=== PATIENT | female | born 1990 | race African-American/Black ===

== ENCOUNTER 2016-05-07 16:32 | Emergency (ER) | payer OTHER ==
--- NOTE | 2016-05-07 17:19 | ER Document Report ---
ED Medical Screen (RME) - General Chief Complaint: Flu Symptoms Stated Complaint: VOMITING Time seen by provider: 17:17 Mode of Arrival: Ambulatory Information source: Patient Notes: 26-year-old female complaining of nausea and headache, body aches, vomiting since Saturday. She states she can't keep anything down. Runny nose and cough since yesterday. Chills and sweats. denies . I have greeted and performed a rapid initial assessment of this patient. A comprehensive ED assessment, evaluation of the patient, analysis of test results , and completion of the medical decision making process will be conducted by additional ED providers. TRAVEL OUTSIDE OF THE [place] IN LAST 30 DAYS: No - Related Data Allergies/Adverse Reactions: haloperidol [From Haldol] Adverse Reaction (Verified 09/27/15 17:55) haloperidol lactate [From Haldol] Adverse Reaction (Verified 09/27/15 17:55) prochlorperazine edisylate [From Compazine] Adverse Reaction (Verified 09/27/15 17:55) prochlorperazine maleate [From Compazine] Adverse Reaction (Verified 09/27/15 17 :55) Past Medical History - Social History Family history: Other - anemia Neurological Medical History: Reports: Hx Migraine Psychiatric Medical History: Reports: Hx Anxiety Past Surgical History: Reports: Hx Section - x 2 - Immunizations Immunizations up to date: Yes Hx Diphtheria, Pertussis, Tetanus Vaccination: Yes Physical Exam - Vital signs Vitals: Temp Pulse Resp BP Pulse Ox 98.1 F 94 14 105/62 99 05/07/16 16:38 05/07/16 16:38 05/07/16 16:38 05/07/16 16:38 05/07/16 16:38 Course - Vital Signs Vital signs: Temp Pulse Resp BP Pulse Ox 98.1 F 94 14 105/62 99 05/07/16 16:38 05/07/16 16:38 05/07/16 16:38 05/07/16 16:38 05/07/16 16:38
[2016-05-07] MEDS ORDERED: ONDANSETRON 4 MG TAB.RAPDIS PO ONE (17:20)
[2016-05-07 18:00] LABS: APPEARANCE,URINE SLIGHTLY-CLOUDY; BILIRUBIN,URINE NEGATIVE (NEGATIVE); GLUCOSE, URINE NEGATIVE (NEGATIVE); KETONES,URINE TRACE mg/dL (NEGATIVE); LEUKOCYTE ESTERASE,URINE NEGATIVE (NEGATIVE); NITRITE,URINE NEGATIVE (NEGATIVE); PROTEIN,URINE NEGATIVE (NEGATIVE); UROBILINOGEN,URINE NEGATIVE mg/dL (<2.0)
--- NOTE | 2016-05-07 19:14 | ER Document Report ---
ED Flu Like - General Chief Complaint: Flu Symptoms Stated Complaint: VOMITING Time seen by provider: 19:09 Mode of Arrival: Ambulatory Information source: Patient Notes: 26-year-old female presents to ED for complaints of nausea headache bodyaches and vomiting since Saturday she states she has a runny nose and cough since yesterday chills and sweats. TRAVEL OUTSIDE OF THE [place] IN LAST 30 DAYS: No - HPI Onset: Last week Timing/Duration: Worse Quality of pain: Achy Severity: Moderate Pain Level: 3 CO exposure: No Associated symptoms: Body/muscle aches, Chills, Fever, Vomiting, Rhinnorhea, Sore throat Similar symptoms previously: Yes Recently seen / treated by doctor: No - Related Data Allergies/Adverse Reactions: haloperidol [From Haldol] Adverse Reaction (Verified 09/27/15 17:55) haloperidol lactate [From Haldol] Adverse Reaction (Verified 09/27/15 17:55) prochlorperazine edisylate [From Compazine] Adverse Reaction (Verified 09/27/15 17:55) prochlorperazine maleate [From Compazine] Adverse Reaction (Verified 09/27/15 17 :55) Past Medical History - General Information source: Patient - Social History Smoking Status: Never Smoker Cigarette use (# per day): No Chew tobacco use (# tins/day): No Smoking Education Provided: No Frequency of alcohol use: None Drug Abuse: None Occupation: [employer] Lives with: Grandparent(s) Family History: CVA, DM, Hypertension, Malignancy Patient has suicidal ideation: No Patient has homicidal ideation: No - Past Medical History Cardiac Medical History: Reports: None Pulmonary Medical History: Reports: None EENT Medical History: Reports: None Neurological Medical History: Reports: Hx Migraine Endocrine Medical History: Reports: None Renal/ Medical History: Reports: None Malignancy Medical History: Reports: None GI Medical History: Reports: None Musculoskeltal Medical History: Reports None Skin Medical History: Reports None Psychiatric Medical History: Reports: Hx Anxiety Traumatic Medical History: Reports: None Infectious Medical History: Reports: None Past Surgical History: Reports: Hx Section - x 2 - Immunizations Immunizations up to date: Yes Hx Diphtheria, Pertussis, Tetanus Vaccination: Yes Review of Systems - Review of Systems Constitutional: Chills, Recent illness EENT: Nose discharge, Sinus discharge Cardiovascular: No symptoms reported Respiratory: Cough Gastrointestinal: Vomiting Genitourinary: No symptoms reported Female Genitourinary: No symptoms reported Musculoskeletal: No symptoms reported Skin: No symptoms reported Hematologic/Lymphatic: No symptoms reported Neurological/Psychological: Headaches -: Yes All other systems reviewed and negative Physical Exam - Vital signs Vitals: Temp Pulse Resp BP Pulse Ox 98.1 F 94 14 105/62 99 05/07/16 16:38 05/07/16 16:38 05/07/16 16:38 05/07/16 16:38 05/07/16 16:38 Interpretation: Normal - General General appearance: Appears well, Alert - HEENT Head: Normocephalic, Atraumatic Eyes: Normal Pupils: PERRL Ears: Normal External canal: Normal Tympanic membrane: Normal Nasal: Purulent discharge, Swelling Mouth/Lips: Normal Mucous membranes: Normal Pharynx: Normal. No: Erythema, Exudate, Peritonsillar abscess, Retropharyngeal abscess, Tonsillar hypertrophy, Potential airway comprom. Neck: Normal - Respiratory Respiratory status: No respiratory distress Chest status: Nontender Breath sounds: Nonproductive cough Chest palpation: Normal - Cardiovascular Rhythm: Regular Heart sounds: Normal auscultation Murmur: No - Abdominal Inspection: Normal Distension: No distension Bowel sounds: Normal Tenderness: Nontender Organomegaly: No organomegaly - Back Back: Normal, Nontender - Extremities General upper extremity: Normal inspection, Nontender, Normal color, Normal ROM , Normal temperature General lower extremity: Normal inspection, Nontender, Normal color, Normal ROM , Normal temperature, Normal weight bearing. No: Ailyn's sign - Neurological Neuro grossly intact: Yes Cognition: Normal Orientation: AAOx4 Jeimy Coma Scale Eye Opening: Spontaneous [place] Coma Scale Verbal: Oriented Jeimy Coma Scale Motor: Obeys Commands Jeimy Coma Scale Total: 15 Speech: Normal Cranial nerves: Normal Motor strength normal: LUE, RUE, LLE, RLE Additional motor exam normals: Equal salt lifter Babinski reflex: Normal (flexor plantar) Sensory: Normal Biceps - Reflex grade: 2 = Normal Triceps - Reflex grade: 2 = Normal Brachioradialis - Reflex grade: 2 = Normal Knee - Reflex grade: 2 = Normal Ankle - Reflex grade: 2 = Normal - Psychological Associated symptoms: Normal affect, Normal mood - Skin Skin Temperature: Warm Skin Moisture: Dry Skin Color: Normal Course - Vital Signs Vital signs: Temp Pulse Resp BP Pulse Ox 98.4 F 74 18 107/65 98 05/07/16 19:19 05/07/16 19:19 05/07/16 19:19 05/07/16 19:19 05/07/16 19:19 - Laboratory Laboratory results interpreted by me: 05/07/16 17:40 Urine Ketones TRACE H Urine Ascorbic Acid 40 H Discharge - Discharge Clinical Impression: Viral upper respiratory illness Nausea & vomiting Qualifiers: Vomiting type: unspecified Vomiting Intractability: non-intractable Qualified Code(s): R11.2 - Nausea with vomiting, unspecified Headache Qualifiers: Headache type: unspecified Headache chronicity pattern: chronic headache Intractability: not intractable Qualified Code(s): R51 - Headache Condition: Good Disposition: HOME, SELF-CARE Instructions: Family Physicians / Practices Additional Instructions: HEADACHE: The physician does not feel that the headache you are experiencing has a serious underlying cause. Most headaches are due to emotional stress, with resultant muscle tension (tension headache). Occasionally, headaches are secondary to changes in the blood vessels of the scalp (vascular headache and migraine headache). Sometimes, a headache is the first symptom of another developing illness, such as a viral infection. You have no evidence of stroke, bleeding, meningitis, or other serious cause of your headache. The treatment of headaches varies with the severity and cause of the pain. Not all headaches need pain shots. In fact, there is evidence that using narcotics for headaches may make them worse in the long run. The physician will determine the therapy that's in your best interest. If you develop a fever, if the headache is different from any you've previously experienced, or if the headache progressively worsens, then call your physician at once or go to the emergency room. Nausea or Vomiting, Nonspecific Vomiting (or nausea without vomiting) can be caused by many different problems. Of course, it can mean that something's wrong with the stomach, such as "stomach flu," ulcers, or inflammation. But it can also be a symptom of a problem that has nothing to do with the stomach or intestines. Vomiting is common with severe headaches, earaches, and tonsillitis. We see it with pneumonia or heart attacks. Drugs can cause nausea. Many abdominal problems cause vomiting; for example, gallstones, kidney stones, pancreatitis, and intestinal obstruction (blocked bowels). In most cases, curing the vomiting depends on fixing the problem that caused it. For temporary relief, we may use an anti-nausea medicine. For home use, we can prescribe suppositories, chewable pills, pills that dissolve in the mouth, or liquid anti-nausea drugs. If the vomiting seems to be caused by a problem in the stomach, acid-suppressing drugs may be prescribed as well. It's important to avoid dehydration. Sip clear liquids. Take increasing amounts of fluid over the first 24 hours. Then start small amounts of bland foods (such as dry toast, applesauce, mashed potato). Avoid aspirin, tobacco, and alcohol. Gradually resume your usual diet. If the vomiting worsens, if the problem that's making you vomit worsens, or if there's evidence of bleeding in the stomach (such as black, tarry stool, bloody or black vomit, or lightheadedness), you should return immediately. Call your doctor if you aren't improved in 24 to 36 hours. USE OF DIPHENHYDRAMINE: Diphenhydramine (Benadryl) is an antihistamine and has been recommended to help treat your headache and to prevent side effects of other medications used to treat headaches. The medication can be repeated four times daily. Age Elixir (12.5 mg/tsp) 25 mg pill adult 1-2 tabs Antihistamines may cause drowsiness, especially with the first dose. Do not operate machinery or drive while under the effects of the medication. Do not combine the medication with alcohol, or with any other medication without talking to your doctor. ANTINAUSEA MEDICATION: You have been given a medication to suppress nausea and vomiting. This type of medication can be given as a shot, pill, or suppository. It will usually last for many hours. Pills and shots usually last six to eight hours, suppositories last about 12 hours. For the typical illness, only one or two doses of the medication may be necessary. Mild lightheadedness may occur. This type of medicine can cause drowsiness. Do not drive or operate dangerous machinery while under its influence. Do not mix with alcohol. See your doctor at once if you have muscle spasms or tightness, or uncontrollable motions (particularly of the neck, mouth, or jaw). Persistent vomiting or severe lightheadedness should also be evaluated by the physician. Ibuprofen Ibuprofen is an excellent, safe drug for pain control. In addition, it has potent antiinflammatory effects which are beneficial, especially in the treatment of injuries, arthritis, or tendonitis. It's best to take ibuprofen with food. Persons with ulcer disease or allergy to aspirin should notify their physician of this before taking ibuprofen. Take the medication exactly as prescribed. Don't take additional doses unless instructed to do so by your doctor. If you develop wheezing, shortness of breath, hives, faintness, stomach pain, vomiting, or dark black stools, return for re-evaluation at once. FOLLOW-UP CARE: If you have been referred to a physician for follow-up care, call the physician s office for an appointment as you were instructed or within the next two days. If you experience worsening or a significant change in your symptoms, notify the physician immediately or return to the Emergency Department at any time for re-evaluation. Prescriptions: Promethazine HCl [Phenergan 25 mg Tablet] 25 mg PO Q6H PRN #15 tablet PRN Reason:
[2016-05-07 19:20] VITALS: BP 107/65
== END 2016-05-07 19:19 | disposition home or self-care (01) ==
LOC: ER 16:32
DX: J06.9 Acute upper respiratory infection, unspecified (principal); B97.89 Other viral agents as the cause of diseases classified elsewhere; R51 Headache; R11.2 Nausea with vomiting, unspecified; R05 Cough; R61 Generalized hyperhidrosis; M79.1 Myalgia; J34.89 Other specified disorders of nose and nasal sinuses; J02.9 Acute pharyngitis, unspecified; R68.83 Chills (without fever)
CPT/HCPCS: 99283; 81025; 81001; S0119

== ENCOUNTER 2016-05-14 21:28 | Emergency (ER) | payer SELFPAY ==
[2016-05-14 22:31] VITALS: BP 113/67
== END 2016-05-15 01:18 | disposition left against medical advice (07) ==
LOC: ER 21:28
DX: Z53.21 Procedure and treatment not carried out due to patient leaving prior to being seen by health care provider (principal)

== ENCOUNTER 2016-05-22 15:55 | Emergency (ER) | payer OTHER ==
[2016-05-22] MEDS ORDERED: IBUPROFEN 800 MG TABLET PO ONE (16:05)
--- NOTE | 2016-05-22 16:05 | ER Document Report ---
ED Medical Screen (RME) - General Stated Complaint: TOE PAIN Time seen by provider: 15:59 Mode of Arrival: Ambulatory Information source: Patient Notes: Patient complains of ingrown toenail, left #3 toe for the last week and a half. Painful to touch, and patient states it has been bleeding. Denies injury to the toe. Denies previous history of ingrown toenails. Denies fever. I have greeted and performed a rapid initial assessment of this patient. A comprehensive ED assessment and evaluation of the patient, analysis of test results and completion of the medical decision making process will be conducted by additional ED providers. TRAVEL OUTSIDE OF THE [place] IN LAST 30 DAYS: No - Related Data Allergies/Adverse Reactions: haloperidol [From Haldol] Adverse Reaction (Verified 05/22/16 15:57) haloperidol lactate [From Haldol] Adverse Reaction (Verified 05/22/16 15:57) prochlorperazine edisylate [From Compazine] Adverse Reaction (Verified 05/22/16 15:57) prochlorperazine maleate [From Compazine] Adverse Reaction (Verified 05/22/16 15 :57) Past Medical History - Social History Family history: Other - anemia Neurological Medical History: Reports: Hx Migraine Renal/ Medical History: Denies: Hx Peritoneal Dialysis Psychiatric Medical History: Reports: Hx Anxiety Past Surgical History: Reports: Hx Section - x 2 - Immunizations Immunizations up to date: Yes Hx Diphtheria, Pertussis, Tetanus Vaccination: Yes Physical Exam - Extremities Notes: Left third toe is red, with some edema and what appears to be purulent drainage. There is also dried blood to the toe. Sensation and neurovascular intact.
[2016-05-22] MEDS ORDERED: BUPIVACAINE HCL 0.75% INJ/PF (7.5 MG/1 ML) 10 ML SDV INJ ONE (17:59)
--- NOTE | 2016-05-22 18:03 | ER Document Report ---
ED Extremity Problem, Lower - General Mode of Arrival: Ambulatory Information source: Patient TRAVEL OUTSIDE OF THE [place] IN LAST 30 DAYS: No - HPI Patient complains to provider of: Pain Location: 3rd Toe - Left Occurred: Other - Approximately 1.5 weeks ago Onset/Duration: Persistent Context: Stubbed - Possible Recent injury: Possibly - General Chief Complaint: Toe Injury Stated Complaint: TOE PAIN Notes: Patient is a 26-year-old female presenting to the emergency department concerned of the left third toe pain onset about a week and a half ago. Patient states that it has been swelling and bleeding. Patient thinks she may have stubbed it, and may have developed an ingrown toenail. Patient does not have any other symptoms. (LAURA FERRERA) - Related Data Allergies/Adverse Reactions: haloperidol [From Haldol] Adverse Reaction (Verified 05/22/16 15:57) haloperidol lactate [From Haldol] Adverse Reaction (Verified 05/22/16 15:57) prochlorperazine edisylate [From Compazine] Adverse Reaction (Verified 05/22/16 15:57) prochlorperazine maleate [From Compazine] Adverse Reaction (Verified 05/22/16 15 :57) Past Medical History - General Information source: Patient - Social History Smoking Status: Unknown if Ever Smoked Chew tobacco use (# tins/day): No Frequency of alcohol use: None Drug Abuse: None Family History: Reviewed & Not Pertinent, CVA, DM, Hypertension, Malignancy Patient has suicidal ideation: No Patient has homicidal ideation: No Neurological Medical History: Reports: Hx Migraine Renal/ Medical History: Denies: Hx Peritoneal Dialysis Psychiatric Medical History: Reports: Hx Anxiety Past Surgical History: Reports: Hx Section - x 2 - Immunizations Immunizations up to date: Yes Hx Diphtheria, Pertussis, Tetanus Vaccination: Yes Review of Systems - Review of Systems Constitutional: No symptoms reported EENT: No symptoms reported Cardiovascular: No symptoms reported Respiratory: No symptoms reported Gastrointestinal: No symptoms reported Genitourinary: No symptoms reported Female Genitourinary: No symptoms reported Musculoskeletal: See HPI, Other - Left 3rd toe pain. Skin: No symptoms reported Hematologic/Lymphatic: No symptoms reported Neurological/Psychological: No symptoms reported -: Yes All other systems reviewed and negative Physical Exam - General General appearance: Appears well, Alert - HEENT Head: Normocephalic, Atraumatic Eyes: Normal Pupils: PERRL - Respiratory Respiratory status: No respiratory distress - Extremities General upper extremity: Normal inspection, Nontender, Normal color, Normal ROM , Normal temperature Foot: Nail injury - Left 3rd digit, Other - Neurological Neuro grossly intact: Yes Cognition: Normal Jeimy Coma Scale Eye Opening: Spontaneous Jeimy Coma Scale Verbal: Oriented [place] Coma Scale Motor: Obeys Commands Jeimy Coma Scale Total: 15 Speech: Normal - Psychological Associated symptoms: Normal affect, Normal mood - Skin Skin Temperature: Warm Skin Moisture: Dry Skin Color: Other - See foot exam Course - Re-evaluation Re-evalutation: 05/23/16 00:09 I personally performed the services described in the documentation, reviewed and edited the documentation which was dictated to my scribe in my presence, and it accurately records my words and actions. Patient came in with chief complaint of a think I have an ingrown toenail. She' s been going on and off for the past couple weeks. She's not been in any antibiotic treatment. On examination she has a small paronychia little bit of inflammation laterally and some skin has grown over need the nail. There is since her cane digital block to the area remove the sliver of the nail and the skin released underneath no expression of pus or abscess. Patient tolerated procedure well place her on pain medication antibiotic warm soaks 2 day recheck with primary care physician and discussed reasons for ED return sooner (PATRICE JOHN) - Vital Signs Vital signs: Temp Pulse Resp BP Pulse Ox 99.2 F 73 16 114/67 100 05/22/16 21:09 05/22/16 21:09 05/22/16 21:09 05/22/16 21:09 05/22/16 21:09 Discharge - Discharge Clinical Impression: Ingrown nail, Paronychia Condition: Stable Disposition: HOME, SELF-CARE Additional Instructions: Ingrown Nail You have an ingrown nail. An ingrown nail develops when the tissues near the nail are pushed up over the nail. Irritation develops and infection follows. An ingrown nail can result from poorly fitting shoes, improper cutting of the nail, or minor injuries. Once the tissues at the edge of the nail swell, the problem can become chronic. Emergency treatment is usually removal of the portion of the nail that has become ingrown. This is followed by hot soaks three to four times a day. Antibiotics may be necessary if infection is present. After the toe heals, make certain there is no pressure on the area, either from shoes or another toe. Trim the toenails straight across, not curved back into the corners. If ingrown nails recur, an operation to remove excess tissue near the nail, or narrowing of the nail, may be necessary. Call the doctor or return if swelling increases, or red streaks, swelling, or swollen glands are found. Paronychia You have an infection between the nail and the surrounding skin, called a paronychia. The germs infect the area after a minor skin injury, such as a hangnail. This infection is treated by releasing the pus. This is usually done by the skin from the nail. If the infection has spread underneath the nail, partial removal of the nail may be necessary. Hot-soak the area three or four times daily. Antibiotics are often given, but are not always necessary. Healing takes about a week. If pain or swelling becomes severe or if you develop fever or chills, call the doctor or return for re-examination. Prescriptions: Tramadol HCl [Ultram 50 mg Tablet] 50 mg PO Q4HP PRN #12 tab PRN Reason: Cephalexin Monohydrate [Keflex 500 mg Capsule] 500 mg PO QID #28 capsule Referrals: [facility] [Provider Group] - Follow up in 3-5 days (Call for appointment to be seen in follow-up 2-3 days return for increasing worsening or new symptoms) Scribe Documentation - Scribe Written by Elmer:: Laura Ferrera 05/22/2016 [id number] acting as scribe for :: Ruiz
[2016-05-22 21:19] VITALS: BP 114/67
== END 2016-05-22 21:10 | disposition home or self-care (01) ==
LOC: ER 15:55
PROC: 0HDRXZZ Extraction of Toe Nail, External Approach (ICD-10-PCS; principal; 2016-05-22)
DX: L03.032 Cellulitis of left toe (principal); M79.675 Pain in left toe(s)
CPT/HCPCS: 11730; 99283; J3490

== ENCOUNTER 2016-07-12 17:41 | Emergency (ER) | payer OTHER ==
[2016-07-12] MEDS ORDERED: BUPIVACAINE HCL 0.5 % INJ/PF 30 ML SDV INJ ONE (19:28)
[2016-07-12] MEDS ORDERED: LIDOCAINE 1% INJ-PF (10 MG/ML) 30 ML SDV INJ ONE (19:28)
--- NOTE | 2016-07-12 19:30 | ER Document Report ---
HPI - HPI Patient complains to provider of: ingrown nails Pain Level: 4 Context: Patient is a 26-year-old female that comes emergency department for chief complaint of ingrown toenails on the right 4th toe and the left 3rd toe. She has been dealing with this previously, states she had them cut out once before, states she has taken antibiotics for these, states that symptoms began after she began working on her feet wearing tight tennis shoes. Patient denies fever or chills, nausea vomiting, denies any other symptoms. - REPRODUCTIVE LMP: now Reproductive: DENIES: : - DERM Skin Color: Normal Past Medical History - General Information source: Patient - Social History Smoking Status: Never Smoker Frequency of alcohol use: None Drug Abuse: None Lives with: Family Family History: Reviewed & Not Pertinent, CVA, DM, Hypertension, Malignancy Patient has suicidal ideation: No Patient has homicidal ideation: No Neurological Medical History: Reports: Hx Migraine Renal/ Medical History: Denies: Hx Peritoneal Dialysis Psychiatric Medical History: Reports: Hx Anxiety Past Surgical History: Reports: Hx Section - x 2 - Immunizations Immunizations up to date: Yes Hx Diphtheria, Pertussis, Tetanus Vaccination: Yes Vertical Provider Document - CONSTITUTIONAL General Appearance: WD/WN, No Apparent Distress, Thin - INFECTION CONTROL TRAVEL OUTSIDE OF THE [place] IN LAST 30 DAYS: No - HEENT HEENT: Atraumatic, Normocephalic - NECK Neck: Normal Inspection - RESPIRATORY Respiratory: Breath Sounds Normal, No Respiratory Distress O2 Sat by Pulse Oximetry: 100 - CARDIOVASCULAR Cardiovascular: Regular Rate, Regular Rhythm - GI/ABDOMEN Gastrointestinal: Abdomen Soft, Abdomen Non-Tender - BACK Back: Normal Inspection - MUSCULOSKELETAL/EXTREMETIES Musculoskeletal/Extremeties: Tender - Left third toe with a ingrown toenail over the medial aspect of the toe with erythema and tenderness to the area, right fourth toe with mild erythema and tenderness around a smaller lateral ingrown toenail. Normal capillary refill and sensation, no swelling or erythema to the foot otherwise, normal lower extremity exam otherwise - NEURO Level of Consciousness: Awake, Alert, Appropriate Motor/Sensory: No Motor Deficit, No Sensory Deficit - DERM Integumentary: Warm, Dry, No Rash Course - Re-evaluation Re-evalutation: Both ingrown toenails excised, /infected skin trimmed, cleaned, dressed, placing on gentamicin ointment, referring to podiatry. Patient tolerated very well, discussed treatment, return precautions, patient states understanding and agreement - Vital Signs Vital signs: Temp Pulse Resp BP Pulse Ox 97.1 F 72 17 105/58 L 100 07/12/16 18:05 07/12/16 18:05 07/12/16 18:05 07/12/16 18:05 07/12/16 18:05 Procedures - Incision and Drainage left third toe Type: Single Anesthetic type: Other - Lidocaine and bupivacaine, 3 miles, digital block Blade size: 11 I&D procedure: Sterile dressing applied, Other - Surgical cleanser Incision Method: Incision made by scalpel - Incision made with scissors and trimming made with scissors Amount/type of drainage: minimal pus, moderate bleeding right fourth toe Type: Single Anesthetic type: Other - Bupivacaine and lidocaine, 3 miles, digital block performed I&D procedure: Sterile dressing applied, Other - Surgical cleanser Incision Method: Incision made by scalpel - Scissors used for incision and trimming Amount/type of drainage: small amount of bloody drainage Discharge - Discharge Clinical Impression: Ingrown toenail Condition: Stable Additional Instructions: Take the current dressing off in 2 days, afterwards cleaned gently with soap and water and apply a protective Band-Aid or dressing. I recommend at that point using the tobramycin ointment as prescribed. Wear shoes that do not compress the toes, see additional instructions below. Follow-up with podiatry referral if needed. Return to the emergency department for any concerning symptoms. Ingrown Nail You have an ingrown nail. An ingrown nail develops when the tissues near the nail are pushed up over the nail. Irritation develops and infection follows. An ingrown nail can result from poorly fitting shoes, improper cutting of the nail, or minor injuries. Once the tissues at the edge of the nail swell, the problem can become chronic. Emergency treatment is usually removal of the portion of the nail that has become ingrown. This is followed by hot soaks three to four times a day. Antibiotics may be necessary if infection is present. After the toe heals, make certain there is no pressure on the area, either from shoes or another toe. Trim the toenails straight across, not curved back into the corners. If ingrown nails recur, an operation to remove excess tissue near the nail, or narrowing of the nail, may be necessary. Call the doctor or return if swelling increases, or red streaks, swelling, or swollen glands are found. Prescriptions: Gentamicin Sulfate 15 gm TP ASDIR PRN #1 cream.gm. PRN Reason: Forms: Return to Work Referrals: SANDY PICKARD DPM [ACTIVE STAFF] - Follow up as needed
[2016-07-12 21:32] VITALS: BP 112/74
== END 2016-07-12 20:50 | disposition home or self-care (01) ==
LOC: ER 17:41
PROC: 0H9NXZZ Drainage of Left Foot Skin, External Approach (ICD-10-PCS; principal; 2016-07-12)
DX: L60.0 Ingrowing nail (principal)
CPT/HCPCS: 99283

== ENCOUNTER 2017-01-01 01:29 | Emergency (ER) | payer SELFPAY ==
[2017-01-01 01:58] VITALS: BP 110/66
[2017-01-01] MEDS ORDERED: ONDANSETRON 4 MG TAB.RAPDIS PO ONE (03:20)
[2017-01-01] MEDS ORDERED: FAMOTIDINE 20 MG TABLET PO ONE (03:21)
--- NOTE | 2017-01-01 03:22 | ER Document Report ---
ED Medical Screen (RME) - General Chief Complaint: Nausea/Vomiting/Diarrhea Stated Complaint: NAUSEA Time Seen by Provider: 01/01/17 03:20 Notes: 26-year-old female, chief complaint of vomiting earlier and an episode of loose stools. She denies abdominal pain, fever, flank pain, vaginal discharge or bleeding. She takes contraceptive, denies any other medications or medical history. Her son is with her and he also has vomiting symptoms. TRAVEL OUTSIDE OF THE [place] IN LAST 30 DAYS: No - Related Data Allergies/Adverse Reactions: haloperidol [From Haldol] Adverse Reaction (Verified 01/01/17 01:56) haloperidol lactate [From Haldol] Adverse Reaction (Verified 01/01/17 01:56) prochlorperazine edisylate [From Compazine] Adverse Reaction (Verified 01/01/17 01:56) prochlorperazine maleate [From Compazine] Adverse Reaction (Verified 01/01/17 01 :56) Past Medical History - Social History Family history: Other - anemia Neurological Medical History: Reports: Hx Migraine Renal/ Medical History: Denies: Hx Peritoneal Dialysis Psychiatric Medical History: Reports: Hx Anxiety Past Surgical History: Reports: Hx Section - x 2 - Immunizations Immunizations up to date: Yes Hx Diphtheria, Pertussis, Tetanus Vaccination: Yes Physical Exam - Vital signs Vitals: Temp Pulse Resp BP Pulse Ox 98.7 F 72 18 110/66 100 01/01/17 01:57 01/01/17 01:57 01/01/17 01:57 01/01/17 01:57 01/01/17 01:57 - Abdominal Inspection: Normal Tenderness: Nontender Course - Vital Signs Vital signs: Temp Pulse Resp BP Pulse Ox 98.7 F 72 18 110/66 100 01/01/17 01:57 01/01/17 01:57 01/01/17 01:57 01/01/17 01:57 01/01/17 01:57
[2017-01-01 04:26] LABS: APPEARANCE,URINE SLIGHTLY-CLOUDY; BILIRUBIN,URINE NEGATIVE (NEGATIVE); GLUCOSE, URINE NEGATIVE (NEGATIVE); KETONES,URINE NEGATIVE (NEGATIVE); LEUKOCYTE ESTERASE,URINE TRACE (NEGATIVE); NITRITE,URINE NEGATIVE (NEGATIVE); PROTEIN,URINE NEGATIVE (NEGATIVE); URINE SPECIFIC GRAVITY 1.026
== END 2017-01-01 07:44 | disposition home or self-care (01) ==
LOC: ER 01:29
DX: R11.2 Nausea with vomiting, unspecified (principal); R19.4 Change in bowel habit; Z79.3 Long term (current) use of hormonal contraceptives; Z53.20 Procedure and treatment not carried out because of patient's decision for unspecified reasons
CPT/HCPCS: 99281; 81025; 81001; S0119; 99283

== ENCOUNTER 2017-02-04 15:30 | Emergency (ER) | payer SELFPAY ==
[2017-02-04 16:06] LABS: ABSOLUTE EOSINOPHILS # (AUTO) 0.4 10^3/uL (0.0-0.6); ABSOLUTE LYMPHOCYTES (AUTO) 1.2 10^3/uL (0.5-4.7); ABSOLUTE MONOCYTES (AUTO) 0.6 10^3/uL (0.1-1.4); ABSOLUTE NEUT (AUTO) 3.2 10^3/uL (1.7-8.2); BASOPHILS % (AUTO) 0.9 % (0-2); EOSINOPHILS % (AUTO) 7.3 % (0-6); HEMATOCRIT 33.4 % (36.0-47.0); HEMOGLOBIN 11.6 g/dL (12.0-15.5); HGB HCT DIFFERENCE 1.4; LYMPHOCYTES % (AUTO) 22.2 % (13-45); MEAN CORPUSCULAR HEMOGLOBIN 29.8 pg (27.0-33.4); MEAN CORPUSCULAR HGB CONC 34.8 g/dL (32.0-36.0); MEAN CORPUSCULAR VOLUME 86 fl (80-97); MONOCYTES % (AUTO) 10.6 % (3-13); RED BLOOD COUNT 3.91 10^6/uL (3.72-5.28); RED CELL DISTRIBUTION WIDTH 14.6 % (11.5-14.0); WHITE BLOOD COUNT 5.4 10^3/uL (4.0-10.5)
[2017-02-04 16:33] LABS: ALANINE AMINOTRANSFERASE 24 U/L (9-52); ALBUMIN 4.1 g/dL (3.5-5.0); ALKALINE PHOSPHATASE 45 U/L (38-126); ANION GAP 11 (5-19); ASPARTATE AMINO TRANSFERASE 31 U/L (14-36); BILIRUBIN,DIRECT 0.3 mg/dL (0.0-0.4); BILIRUBIN,TOTAL 0.5 mg/dL (0.2-1.3); BLOOD UREA NITROGEN 13 mg/dL (7-20); CALCIUM 8.8 mg/dL (8.4-10.2); CARBON DIOXIDE 24 mmol/L (22-30); CHLORIDE 108 mmol/L (98-107); CREATININE RESULT 0.87 mg/dL (0.52-1.25); GLUCOSE 90 mg/dL (75-110); MAGNESIUM 1.9 mg/dL (1.6-2.3); POTASSIUM 4.1 mmol/L (3.6-5.0); SODIUM 142.8 mmol/L (137-145); TOTAL PROTEIN 7.2 g/dL (6.3-8.2)
[2017-02-04 16:39] LABS: ALCOHOL < 10 mg/dL (NONE DETECTED)
--- NOTE | 2017-02-04 17:01 | ER Document Report ---
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 She began to feel weak and dizzy and thought she may need to eat something so she did. However, upon returning to her work area, patient does not remember what happened but her coworkers describe her as possibly having a seizure. 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 She says her head has been hurting since she awakened and she is continued to feel weak and tired. She has never had anything like this happen before and there is no family history of seizure activity. Patient denies biting her tongue. Denies loss of bowel or bladder function. Patient says that she vomited once after this episode. Does not feel nauseated now. Has not had any recent illness or fever, although she says for the past month that she has not been feeling well. Denies fever. Denies any urinary tract symptoms. No significant cough or cold or chest congestion. LMP 01/23. She has had C-sections but no other abdominal surgeries. Not on any regular prescription medications. There is no family history of seizures. TRAVEL OUTSIDE OF THE [place] IN LAST 30 DAYS: No - Related Data Allergies/Adverse Reactions: haloperidol [From Haldol] Adverse Reaction (Verified 01/01/17 01:56) haloperidol lactate [From Haldol] Adverse Reaction (Verified 01/01/17 01:56) prochlorperazine edisylate [From Compazine] Adverse Reaction (Verified 01/01/17 01:56) prochlorperazine maleate [From Compazine] Adverse Reaction (Verified 01/01/17 01 :56) Past Medical History - Social History Smoking Status: Never Smoker Chew tobacco use (# tins/day): No Frequency of alcohol use: None Drug Abuse: None Family History: Reviewed & Not Pertinent, CVA, DM, Hypertension, Malignancy Neurological Medical History: Reports: Hx Migraine. Denies: Hx Seizures Endocrine Medical History: Denies: Hx Diabetes Mellitus Type 1, Hx Diabetes Mellitus Type 2 Psychiatric Medical History: Reports: Hx Anxiety Past Surgical History: Reports: Hx Section - x 2 - Immunizations Immunizations up to date: Yes Hx Diphtheria, Pertussis, Tetanus Vaccination: Yes Review of Systems - Review of Systems Notes: REVIEW OF SYSTEMS: CONSTITUTIONAL : Denies fever. EENT: Denies eye, ear, nose or mouth or throat pain or other symptoms. CARDIOVASCULAR: Denies chest pain. RESPIRATORY: Denies cough, chest congestion, or shortness of breath. GASTROINTESTINAL: Denies abdominal pain but had some nausea and vomited once after this episode occurred. No diarrhea. GENITOURINARY: Denies difficulty or painful urinating, urinary frequency, blood in urine. MUSCULOSKELETAL: Denies back or neck pain. Denies joint pain or swelling. SKIN: Denies rash or skin lesions. NEUROLOGICAL: Denies LOC or altered mental status. Mild headache. Denies sensory loss or motor deficits. ALL OTHER SYSTEMS REVIEWED AND NEGATIVE. Physical Exam - Vital signs Vitals: Resp 25 H 02/04/17 15:36 Interpretation: Normal - Notes Notes: PHYSICAL EXAMINATION: GENERAL: Well-appearing, in no acute distress. Speaks very softly. HEAD: Atraumatic, normocephalic. Scalp is diffusely tender, but no isolated area of tenderness and no swelling anywhere. EYES: Pupils equal round and reactive to light, extraocular movements intact. ENT: oropharynx clear without exudates. Moist mucous membranes. NECK: Normal range of motion, supple. LUNGS: Breath sounds clear and equal bilaterally. HEART: Regular rate and rhythm without murmurs. ABDOMEN: Soft, nontender. No guarding or rebound. BACK: No tenderness throughout entire back. EXTREMITIES: Normal range of motion without pain. NEUROLOGICAL: Normal speech, normal gait. Normal sensory, motor, and reflex exams. Awake, alert, and oriented x3. Cranial nerves normal. PSYCH: Normal mood, normal affect. SKIN: Warm, dry, no rashes. Course - Vital Signs Vital signs: Temp Pulse Resp BP Pulse Ox 20 100/73 100 02/04/17 19:01 02/04/17 19:00 02/04/17 19:01 - Laboratory Result Diagrams: 02/04/17 15:46 02/04/17 15:46 Laboratory results interpreted by me: 02/04/17 02/04/17 02/04/17 15:46 15:46 17:45 Hgb 11.6 L Hct 33.4 L RDW 14.6 H Eosinophils % 7.3 H Chloride 108 H Ur Leukocyte Esterase SMALL H - Diagnostic Test Radiology reviewed: Image reviewed, Reports reviewed - CT scan of the brain is normal. - EKG Interpretation by Me EKG shows normal: Sinus rhythm Rate: Normal Rhythm: NSR Additional EKG results interpreted by me: 02/04/17 20:02 EKG is normal. Discharge - Discharge Clinical Impression: Possible seizure Condition: Stable Disposition: HOME, SELF-CARE Additional Instructions: Altered Mental Status An altered mental status is a change in the normal functioning of the brain. This alteration of function can range from minor decreased brain function with some forgetfulness and confusion to complete loss of consciousness and coma. There are many possible causes of an altered mental status and include brain injuries such as trauma or strokes, problems with oxygen supply to the brain, fever and infections of the brain and/or elsewhere in the body, metabolic abnormalities such as low or high blood sugar, overdoses or excessive medication ingestion, and mental and psychiatric illnesses. Sometimes the altered mental status resolves and a definite cause is not determined. If a cause for your altered mental status was found, it has likely been corrected. Your evaluation has not shown any condition that requires that you be admitted to the hospital. It is believed that you are safe to leave and return to your home. If you have a return of your symptoms, you should return for re-evaluation. Possible seizure You may have had a seizure. Seizure disorders (epilepsy) of one sort or another affect about one out of 50 people. The seizure occurs because of abnormal electrical activity in the brain. Seizures may be due to drugs and alcohol, strokes, brain injury, or infection. In the most common form of epilepsy, no cause can be found. You will require further evaluation to determine the cause of your seizure, and to determine whether anti-seizure medication is required. This follow-up testing is important, so please call us if you encounter problems with scheduling of tests or appointments. YOU SHOULD NOT DRIVE until released to do so by your physician. The law requires that seizures be reported to the [place] driver's license bureau--a seizure while driving could be catastrophic. Call the doctor if seizures recur, or if you develop new symptoms such as fever, severe headache, stiff neck, confusion or increasing sleepiness, weakness or numbness, or visual problems. First-time seizures are not treated with any seizure medicines because about 50 % of the people who have seizures do not ever have another one. NORMAL EXAM AND WORKUP: At this time, your examination and workup show no significant abnormality. No significant abnormal physical findings were noted. All laboratory, EKG, and imaging (x-ray, CT scans, ultrasound) studies that were ordered show no significant abnormality. Although your examination and all studies that were ordered showed no significant abnormal finding, there are no examinations and no studies that are 100% accurate. There is always the possibility that some abnormality could exist and not be detected with physical examination or within the limits and capabilities of laboratory and other studies. You should return or follow up as you were instructed on your visit today for further evaluation if your symptoms do not resolve. I recommend you follow-up with a neurologist for further evaluation. I am providing you with the contact information for Dr. Kearns whom you think you may have seen previously for your migraine headaches. Forms: Return to Work Referrals: KAREN KEARNS MD [ACTIVE STAFF] - Follow up as needed
--- NOTE | 2017-02-04 17:45 | RADIOLOGY REPORT (SQ) ---
EXAM DESCRIPTION: CT HEAD WITHOUT COMPLETED DATE/TIME: 02/04/2017 5:36 pm REASON FOR STUDY: ?? New-onset seizure COMPARISON: None. TECHNIQUE: Axial images acquired through the brain without intravenous contrast. Images reviewed wi th bone, brain and subdural windows. Images stored on PACS. All CT scanners at this facility use dose modulation, iterative reconstruction, and/or weight based d osing when appropriate to reduce radiation dose to as low as reasonably achievable (ALARA). [facility]: Dose Right [facility]: CareDose [facility]: Dose Right [facility]: Teradose 4D [facility]: [employer] RADIATION DOSE: Up-to-date CT equipment and radiation dose reduction techniques were employed. CTDIv ol: 64.6 mGy. DLP: 1292 mGy-cm. mGy. LIMITATIONS: None. FINDINGS: VENTRICLES: Normal size and contour. CEREBRUM: No masses. No hemorrhage. No midline shift. No evidence for acute infarction. Normal gra y/white matter differentiation. No areas of low density in the white matter. CEREBELLUM: No masses. No hemorrhage. No alteration of density. No evidence for acute infarction. EXTRAAXIAL SPACES: No fluid collections. No masses. ORBITS AND GLOBE: No intra- or extraconal masses. Normal contour of globe without masses. CALVARIUM: No fracture. PARANASAL SINUSES: No fluid or mucosal thickening. SOFT TISSUES: No mass or hematoma. OTHER: No other significant finding. IMPRESSION: NORMAL BRAIN CT WITHOUT CONTRAST. EVIDENCE OF ACUTE STROKE: NO. COMMENT: Quality ID # [id number]: Final reports with documentation of one or more dose reduction techniques (e.g., Automated exposure control, adjustment of the mA and/or kV according to patient size, use of iterative reconstruction technique) TECHNICAL DOCUMENTATION: JOB ID: [id number] [employer]- All Rights Reserved
[2017-02-04 18:44] LABS: APPEARANCE,URINE SLIGHTLY-CLOUDY; BILIRUBIN,URINE NEGATIVE (NEGATIVE); GLUCOSE, URINE NEGATIVE (NEGATIVE); KETONES,URINE NEGATIVE (NEGATIVE); LEUKOCYTE ESTERASE,URINE SMALL (NEGATIVE); NITRITE,URINE NEGATIVE (NEGATIVE); PROTEIN,URINE NEGATIVE (NEGATIVE); URINE SPECIFIC GRAVITY 1.018; UROBILINOGEN,URINE NEGATIVE mg/dL (<2.0)
[2017-02-04 19:03] LABS: URINE BARBITURATES SCREEN NEGATIVE; URINE METHADONE SCREEN NEGATIVE; URINE OPIATES LOW NEGATIVE; URINE PHENCYCLIDINE SCREEN NEGATIVE
[2017-02-04 19:06] VITALS: BP 100/73
--- NOTE | 2017-02-05 09:45 | EKG REPORT ---
SEVERITY:- NORMAL ECG - SINUS RHYTHM : Confirmed by: Rajani Tamez 05-Feb-2017 09:45:28
== END 2017-02-04 19:07 | disposition home or self-care (01) ==
LOC: ER 15:30
DX: R53.1 Weakness (principal); R42 Dizziness and giddiness; R41.3 Other amnesia; R51 Headache; R53.83 Other fatigue; R11.10 Vomiting, unspecified; Z86.69 Personal history of other diseases of the nervous system and sense organs
CPT/HCPCS: 36415; 70450; 80053; 80307; 81001; 83735; 84703; 85025; 93005; 93010; 99285

== ENCOUNTER 2017-02-10 13:22 | Emergency (ER) | payer SELFPAY ==
--- NOTE | 2017-02-10 14:28 | ER Document Report ---
ED General - General Chief Complaint: Probable Seizure Stated Complaint: SHAKING,SLURRED SPEECH Time Seen by Provider: 02/10/17 14:11 Information source: Patient, Relative, Friend TRAVEL OUTSIDE OF THE [place] IN LAST 30 DAYS: No - HPI Patient complains to provider of: Shaking episode Onset: Just prior to arrival Onset/Duration: Sudden Quality of pain: Achy Severity: Moderate Pain Level: 4 Associated symptoms: Headache Exacerbated by: Denies Relieved by: Denies Similar symptoms previously: Yes Recently seen / treated by doctor: Yes Notes: Patient is a 26-year-old female who presents to the emergency room for possible seizure activity patient was at [facility] today, she was not feeling well so she went to the bathroom, she crouched down on the floor and was shaking, she was unresponsive at the time, the whole episode lasted approximately 1 minute, she is a history of similar episode approximately 1 week ago and was seen in this facility, has not followed up with a neurologist, she has daily headaches and takes Excedrin Migraine on a regular basis, she has been having migraine headaches since she was 9 years old and saw a neurologist at [facility] at that time but has not seen one since, she denies any injury or pain except for headache at time of my evaluation, no recent illness, no nausea, vomiting or diarrhea, no fever or chills, no chest pain or shortness of breath, she does become tearful during my initial evaluation, when I asked her why she is upset and crying she reports that she has a lot of stress in life, regarding finances , family, inability to care for her family appropriately, concerns for medical bills in the inability to obtain proper medical care due to lack of insurance and money - Related Data Allergies/Adverse Reactions: haloperidol [From Haldol] Adverse Reaction (Verified 01/01/17 01:56) haloperidol lactate [From Haldol] Adverse Reaction (Verified 01/01/17 01:56) prochlorperazine edisylate [From Compazine] Adverse Reaction (Verified 01/01/17 01:56) prochlorperazine maleate [From Compazine] Adverse Reaction (Verified 01/01/17 01 :56) Past Medical History - General Information source: Patient - Social History Smoking Status: Never Smoker Drug Abuse: None Family History: Reviewed & Not Pertinent, CVA, DM, Hypertension, Malignancy Neurological Medical History: Reports: Hx Migraine. Denies: Hx Seizures Endocrine Medical History: Denies: Hx Diabetes Mellitus Type 1, Hx Diabetes Mellitus Type 2 Renal/ Medical History: Denies: Hx Peritoneal Dialysis Psychiatric Medical History: Reports: Hx Anxiety Past Surgical History: Reports: Hx Section - x 2 - Immunizations Immunizations up to date: Yes Hx Diphtheria, Pertussis, Tetanus Vaccination: Yes Review of Systems - Review of Systems Constitutional: No symptoms reported EENT: No symptoms reported Cardiovascular: No symptoms reported Respiratory: No symptoms reported Gastrointestinal: No symptoms reported Genitourinary: No symptoms reported Female Genitourinary: No symptoms reported Musculoskeletal: No symptoms reported Skin: No symptoms reported Hematologic/Lymphatic: No symptoms reported Neurological/Psychological: See HPI -: Yes All other systems reviewed and negative Physical Exam - Vital signs Vitals: Temp Pulse Resp BP Pulse Ox 99.0 F 85 18 123/69 97 02/10/17 13:28 02/10/17 13:28 02/10/17 13:28 02/10/17 13:28 02/10/17 13:28 Interpretation: Normal - General General appearance: Appears well, Alert - HEENT Head: Normocephalic, Atraumatic Eyes: Normal Pupils: PERRL - Respiratory Respiratory status: No respiratory distress Chest status: Nontender Breath sounds: Normal Chest palpation: Normal - Cardiovascular Rhythm: Regular Heart sounds: Normal auscultation Murmur: No - Abdominal Inspection: Normal Distension: No distension Bowel sounds: Normal Tenderness: Nontender Organomegaly: No organomegaly - Back Back: Normal, Nontender - Extremities General upper extremity: Normal inspection, Nontender, Normal color, Normal ROM , Normal temperature General lower extremity: Normal inspection, Nontender, Normal color, Normal ROM , Normal temperature, Normal weight bearing. No: Ailyn's sign - Neurological Neuro grossly intact: Yes Cognition: Normal Orientation: AAOx4 Jeimy Coma Scale Eye Opening: Spontaneous Jeimy Coma Scale Verbal: Oriented Jeimy Coma Scale Motor: Obeys Commands Jeimy Coma Scale Total: 15 Speech: Normal Motor strength normal: LUE, RUE, LLE, RLE Sensory: Normal - Psychological Associated symptoms: Anxious, Tearful - Skin Skin Temperature: Warm Skin Moisture: Dry Skin Color: Normal Course - Re-evaluation Re-evalutation: 02/10/17 15:41 Patient resting comfortably on stretcher, she does report feeling much better, continues to have a slight headache, no seizure activity has been observed since I have evaluated patient, she is smiling and interactive and has several friends and family members at bedside, I did discuss lab results which are unremarkable, additional migraine headache medication has been ordered for her and she will be provided with instructions for follow-up with both a neurologist , the [facility] and mental health providers, patient and family members at bedside acknowledge understanding and agreement with this plan - Vital Signs Vital signs: Temp Pulse Resp BP Pulse Ox 99.0 F 85 12 118/77 100 02/10/17 13:28 02/10/17 13:28 02/10/17 14:01 02/10/17 14:01 02/10/17 14:01 - Laboratory Result Diagrams: 02/10/17 13:50 02/10/17 13:50 Laboratory results interpreted by me: 02/10/17 02/10/17 02/10/17 13:50 13:50 15:17 Hgb 11.3 L Hct 32.1 L Chloride 108 H Carbon Dioxide 20 L Urine Ketones 20 H Ur Leukocyte Esterase SMALL H Discharge - Discharge Clinical Impression: Migraine headache Qualifiers: Migraine type: unspecified Status migrainosus presence: without status migrainosus Intractability: not intractable Qualified Code(s): G43.909 - Migraine, unspecified, not intractable, without status migrainosus Condition: Stable Disposition: HOME, SELF-CARE Instructions: Migraine Headache ([facility]), Neurologist, Anxiety ([facility]) Additional Instructions: Follow-up with a primary care provider, a mental health professional and a neurologist within the next week. You can follow-up at the [facility] which is a free clinic designed to help people with no health insurance to get medical care. Return to the emergency room immediately if symptoms worsen or any additional concerns. Prescriptions: Butalb/Acetaminophen/Caffeine [[id number]] 1 cap PO Q6 PRN # 20 cap PRN Reason:
[2017-02-10 14:32] LABS: ABSOLUTE BASOPHILS # (AUTO) 0.1 10^3/uL (0.0-0.2); ABSOLUTE EOSINOPHILS # (AUTO) 0.2 10^3/uL (0.0-0.6); ABSOLUTE LYMPHOCYTES (AUTO) 1.9 10^3/uL (0.5-4.7); ABSOLUTE MONOCYTES (AUTO) 0.8 10^3/uL (0.1-1.4); ABSOLUTE NEUT (AUTO) 5.8 10^3/uL (1.7-8.2); BASOPHILS % (AUTO) 0.6 % (0-2); EOSINOPHILS % (AUTO) 1.8 % (0-6); HEMATOCRIT 32.1 % (36.0-47.0); HEMOGLOBIN 11.3 g/dL (12.0-15.5); HGB HCT DIFFERENCE 1.8; LYMPHOCYTES % (AUTO) 22.1 % (13-45); MEAN CORPUSCULAR HGB CONC 35.4 g/dL (32.0-36.0); MEAN CORPUSCULAR VOLUME 85 fl (80-97); RED BLOOD COUNT 3.78 10^6/uL (3.72-5.28); SEGMENTED NEUTROPHILS % (AUTO) 66.5 % (42-78); WHITE BLOOD COUNT 8.7 10^3/uL (4.0-10.5)
[2017-02-10 14:45] LABS: ALANINE AMINOTRANSFERASE 29 U/L (9-52); ALBUMIN 4.4 g/dL (3.5-5.0); ALKALINE PHOSPHATASE 46 U/L (38-126); ANION GAP 16 (5-19); ASPARTATE AMINO TRANSFERASE 21 U/L (14-36); BILIRUBIN,DIRECT 0.4 mg/dL (0.0-0.4); BILIRUBIN,TOTAL 0.5 mg/dL (0.2-1.3); BLOOD UREA NITROGEN 10 mg/dL (7-20); CALCIUM 9.7 mg/dL (8.4-10.2); CARBON DIOXIDE 20 mmol/L (22-30); CHLORIDE 108 mmol/L (98-107); CREATININE RESULT 0.82 mg/dL (0.52-1.25); GLUCOSE 92 mg/dL (75-110); MAGNESIUM 1.6 mg/dL (1.6-2.3); SODIUM 143.6 mmol/L (137-145); TOTAL PROTEIN 7.6 g/dL (6.3-8.2)
[2017-02-10 14:46] LABS: ALCOHOL < 10 mg/dL (NONE DETECTED)
[2017-02-10 15:33] LABS: APPEARANCE,URINE CLEAR; BILIRUBIN,URINE NEGATIVE (NEGATIVE); GLUCOSE, URINE NEGATIVE (NEGATIVE); KETONES,URINE 20 mg/dL (NEGATIVE); LEUKOCYTE ESTERASE,URINE SMALL (NEGATIVE); NITRITE,URINE NEGATIVE (NEGATIVE); PROTEIN,URINE NEGATIVE (NEGATIVE); URINE SPECIFIC GRAVITY 1.029; UROBILINOGEN,URINE NEGATIVE mg/dL (<2.0)
[2017-02-10] MEDS ORDERED: BUTALB/ACETAMINOPHEN/CAFFEINE 1 TAB EACH PO ONE (15:41)
[2017-02-10 15:50] LABS: URINE BARBITURATES SCREEN NEGATIVE; URINE METHADONE SCREEN NEGATIVE; URINE OPIATES LOW NEGATIVE; URINE PHENCYCLIDINE SCREEN NEGATIVE
[2017-02-10 15:56] VITALS: BP 106/73
== END 2017-02-10 16:09 | disposition home or self-care (01) ==
LOC: ER 13:22
DX: G43.909 Migraine, unspecified, not intractable, without status migrainosus (principal); R47.81 Slurred speech
CPT/HCPCS: 99284; 36415; 82962; 80307 ×2; 83735; 84703; 85025; 80053; 81001; J3490

== ENCOUNTER 2017-02-13 12:51 | Emergency (ER) | payer SELFPAY ==
[2017-02-13] MEDS ORDERED: NORMAL SALINE 1000 ML 1,000 ML IV ONE (14:16)
[2017-02-13] MEDS ORDERED: DIPHENHYDRAMINE HCL 50 MG/ML VIAL IV ONE (14:16)
[2017-02-13] MEDS ORDERED: ONDANSETRON HCL INJ/PF 4 MG/2 ML SDV IV ONE (14:17)
[2017-02-13 14:45] LABS: ABSOLUTE EOSINOPHILS # (AUTO) 0.2 10^3/uL (0.0-0.6); ABSOLUTE LYMPHOCYTES (AUTO) 1.5 10^3/uL (0.5-4.7); ABSOLUTE MONOCYTES (AUTO) 0.5 10^3/uL (0.1-1.4); ABSOLUTE NEUT (AUTO) 5.1 10^3/uL (1.7-8.2); BASOPHILS % (AUTO) 0.4 % (0-2); EOSINOPHILS % (AUTO) 2.8 % (0-6); HEMATOCRIT 31.6 % (36.0-47.0); HEMOGLOBIN 11.1 g/dL (12.0-15.5); HGB HCT DIFFERENCE 1.7; LYMPHOCYTES % (AUTO) 21.1 % (13-45); MEAN CORPUSCULAR HEMOGLOBIN 29.9 pg (27.0-33.4); MEAN CORPUSCULAR HGB CONC 35.2 g/dL (32.0-36.0); MEAN CORPUSCULAR VOLUME 85 fl (80-97); MONOCYTES % (AUTO) 6.3 % (3-13); RED BLOOD COUNT 3.72 10^6/uL (3.72-5.28); RED CELL DISTRIBUTION WIDTH 14.2 % (11.5-14.0); SEGMENTED NEUTROPHILS % (AUTO) 69.4 % (42-78); WHITE BLOOD COUNT 7.3 10^3/uL (4.0-10.5)
--- NOTE | 2017-02-13 15:10 | ER Document Report ---
ED General - General Chief Complaint: Nausea/Vomiting Stated Complaint: VOMITING Time Seen by Provider: 02/13/17 14:13 Notes: This is a 26-year-old female presents emergency department with multiple complaints. Patient states that she has been dizzy with vomiting and diarrhea for 3 days. Had a syncopal episode on Saturday. Was evaluated in the emergency department. Possible seizure-like activity? Denies any fevers. Denies any headaches. Denies any neck stiffness. States that she is just excessively dizzy and going from lying to sitting and sitting to standing makes her dizziness worse. TRAVEL OUTSIDE OF THE [place] IN LAST 30 DAYS: No - HPI Onset: Yesterday Onset/Duration: Gradual, Constant Quality of pain: No pain Severity: Mild Pain Level: 0 Associated symptoms: Diarrhea, Nausea, Vomiting Exacerbated by: Standing, Movement, Walking Relieved by: Denies - Related Data Allergies/Adverse Reactions: haloperidol [From Haldol] Adverse Reaction (Verified 01/01/17 01:56) haloperidol lactate [From Haldol] Adverse Reaction (Verified 01/01/17 01:56) prochlorperazine edisylate [From Compazine] Adverse Reaction (Verified 01/01/17 01:56) prochlorperazine maleate [From Compazine] Adverse Reaction (Verified 01/01/17 01 :56) Past Medical History - General Information source: Patient - Social History Smoking Status: Never Smoker Chew tobacco use (# tins/day): No Frequency of alcohol use: None Drug Abuse: None Lives with: Family Family History: Reviewed & Not Pertinent, CVA, DM, Hypertension, Malignancy Patient has suicidal ideation: No Patient has homicidal ideation: No Neurological Medical History: Reports: Hx Migraine. Denies: Hx Seizures - No diagnosed seizure disorder (January 2017) Endocrine Medical History: Denies: Hx Diabetes Mellitus Type 1, Hx Diabetes Mellitus Type 2 Renal/ Medical History: Denies: Hx Peritoneal Dialysis Psychiatric Medical History: Reports: Hx Anxiety Past Surgical History: Reports: Hx Section - x 2 - Immunizations Immunizations up to date: Yes Hx Diphtheria, Pertussis, Tetanus Vaccination: Yes Review of Systems - Review of Systems Constitutional: Weakness. denies: Fever, Malaise EENT: No symptoms reported Cardiovascular: No symptoms reported Respiratory: No symptoms reported Gastrointestinal: Diarrhea, Nausea, Vomiting Genitourinary: No symptoms reported Female Genitourinary: No symptoms reported Musculoskeletal: No symptoms reported Skin: No symptoms reported Hematologic/Lymphatic: No symptoms reported Neurological/Psychological: Other - Dizziness Physical Exam - Vital signs Vitals: Temp Pulse Resp BP Pulse Ox 98.7 F 85 16 114/68 100 02/13/17 13:03 02/13/17 13:03 02/13/17 13:03 02/13/17 13:03 02/13/17 13:03 Interpretation: Normal - General General appearance: Appears well, Alert - HEENT Head: Normocephalic, Atraumatic Eyes: Normal Pupils: PERRL - Respiratory Respiratory status: No respiratory distress Chest status: Nontender Breath sounds: Normal Chest palpation: Normal - Cardiovascular Rhythm: Regular Heart sounds: Normal auscultation Murmur: No - Abdominal Inspection: Normal Distension: No distension Bowel sounds: Normal Tenderness: Nontender Organomegaly: No organomegaly - Back Back: Normal, Nontender - Extremities General upper extremity: Normal inspection, Nontender, Normal color, Normal ROM , Normal temperature General lower extremity: Normal inspection, Nontender, Normal color, Normal ROM , Normal temperature, Normal weight bearing. No: Ailyn's sign - Neurological Neuro grossly intact: Yes Cognition: Normal Orientation: AAOx4 [place] Coma Scale Eye Opening: Spontaneous Jeimy Coma Scale Verbal: Oriented Jeimy Coma Scale Motor: Obeys Commands Jeimy Coma Scale Total: 15 Speech: Normal Motor strength normal: LUE, RUE, LLE, RLE Sensory: Normal - Psychological Associated symptoms: Normal affect, Normal mood - Skin Skin Temperature: Warm Skin Moisture: Dry Skin Color: Normal Course - Re-evaluation Re-evalutation: 02/13/17 15:10 This is a well-appearing 26-year-old female in no acute distress with reported history of 3 days of nausea vomiting and diarrhea. Mild dehydration. Will give some IV fluids, antiemetics, check labs and reassess. 02/13/17 16:51 Patient feeling better. Wants to go home. Tolerating p.o. and food. Comfortable discharging. 02/13/17 16:51 Laboratory 02/13/17 02/13/17 02/13/17 14:23 14:23 14:30 WBC 7.3 RBC 3.72 Hgb 11.1 L Hct 31.6 L MCV 85 MCH 29.9 MCHC 35.2 RDW 14.2 H Plt Count 320 Seg Neutrophils % 69.4 Lymphocytes % 21.1 Monocytes % 6.3 Eosinophils % 2.8 Basophils % 0.4 Absolute Neutrophils 5.1 Absolute Lymphocytes 1.5 Absolute Monocytes 0.5 Absolute Eosinophils 0.2 Absolute Basophils 0.0 Sodium 145.4 H Potassium 4.3 Chloride 110 H Carbon Dioxide 25 Anion Gap 10 BUN 9 Creatinine 0.87 Est GFR ( Amer) > 60 Est GFR (Non-Af Amer) > 60 Glucose 112 H Calcium 9.4 Total Bilirubin 0.4 Direct Bilirubin 0.2 Indirect Bilirubin Not Reportable Neonat Total Bilirubin Not Reportable AST 18 ALT 24 Alkaline Phosphatase 41 Total Protein 7.0 Albumin 4.0 Lipase 39.8 Urine Color Urine Appearance Urine pH Ur Specific [place] Urine Protein Urine Glucose (UA) Urine Ketones Urine Blood Urine Nitrite Urine Bilirubin Urine Urobilinogen Ur Leukocyte Esterase Urine WBC (Auto) Urine Bacteria (Auto) Squamous Epi Cells Auto Urine Mucus (Auto) Urine Ascorbic Acid Urine HCG, Qual Influenza A (Rapid) NEGATIVE Influenza B (Rapid) NEGATIVE 02/13/17 16:06 WBC RBC Hgb Hct MCV MCH MCHC RDW Plt Count Seg Neutrophils % Lymphocytes % Monocytes % Eosinophils % Basophils % Absolute Neutrophils Absolute Lymphocytes Absolute Monocytes Absolute Eosinophils Absolute Basophils Sodium Potassium Chloride Carbon Dioxide Anion Gap BUN Creatinine Est GFR ( Amer) Est GFR (Non-Af Amer) Glucose Calcium Total Bilirubin Direct Bilirubin Indirect Bilirubin Neonat Total Bilirubin AST ALT Alkaline Phosphatase Total Protein Albumin Lipase Urine Color COLORLESS Urine Appearance CLEAR Urine pH 7.0 Ur Specific [place] 1.002 Urine Protein NEGATIVE Urine Glucose (UA) NEGATIVE Urine Ketones NEGATIVE Urine Blood NEGATIVE Urine Nitrite NEGATIVE Urine Bilirubin NEGATIVE Urine Urobilinogen NEGATIVE Ur Leukocyte Esterase TRACE H Urine WBC (Auto) 2 Urine Bacteria (Auto) TRACE Squamous Epi Cells Auto 1 Urine Mucus (Auto) RARE Urine Ascorbic Acid NEGATIVE Urine HCG, Qual NEGATIVE Influenza A (Rapid) Influenza B (Rapid) - Vital Signs Vital signs: Temp Pulse Resp BP Pulse Ox 98.7 F 85 16 114/68 100 02/13/17 13:03 02/13/17 13:03 02/13/17 13:03 02/13/17 13:03 02/13/17 13:03 - Laboratory Result Diagrams: 02/13/17 14:23 02/13/17 14:30 Laboratory results interpreted by me: 11/02/13/17 02/13/17 14:23 14:30 16:06 Hgb 11.1 L Hct 31.6 L RDW 14.2 H Sodium 145.4 H Chloride 110 H Glucose 112 H Ur Leukocyte Esterase TRACE H Discharge - Discharge Clinical Impression: Vertigo Condition: Good Instructions: Vertigo ([facility]), Dizziness ([facility]) Prescriptions: Meclizine HCl 12.5 mg PO TID 5 Days #20 tablet Ondansetron [Zofran Odt 4 mg Tablet] 4 mg PO TID 5 Days #10 tab.rapdis
[2017-02-13 15:30] LABS: ALANINE AMINOTRANSFERASE 24 U/L (9-52); ALKALINE PHOSPHATASE 41 U/L (38-126); ANION GAP 10 (5-19); ASPARTATE AMINO TRANSFERASE 18 U/L (14-36); BILIRUBIN,DIRECT 0.2 mg/dL (0.0-0.4); BILIRUBIN,TOTAL 0.4 mg/dL (0.2-1.3); BLOOD UREA NITROGEN 9 mg/dL (7-20); CALCIUM 9.4 mg/dL (8.4-10.2); CARBON DIOXIDE 25 mmol/L (22-30); CHLORIDE 110 mmol/L (98-107); CREATININE RESULT 0.87 mg/dL (0.52-1.25); GLUCOSE 112 mg/dL (75-110); LIPASE 39.8 U/L (23-300); POTASSIUM 4.3 mmol/L (3.6-5.0); SODIUM 145.4 mmol/L (137-145)
[2017-02-13 16:33] LABS: APPEARANCE,URINE CLEAR; BILIRUBIN,URINE NEGATIVE (NEGATIVE); GLUCOSE, URINE NEGATIVE (NEGATIVE); KETONES,URINE NEGATIVE (NEGATIVE); LEUKOCYTE ESTERASE,URINE TRACE (NEGATIVE); NITRITE,URINE NEGATIVE (NEGATIVE); PROTEIN,URINE NEGATIVE (NEGATIVE); URINE SPECIFIC GRAVITY 1.002; UROBILINOGEN,URINE NEGATIVE mg/dL (<2.0)
[2017-02-13 17:01] VITALS: BP 104/55
== END 2017-02-13 17:01 | disposition home or self-care (01) ==
LOC: ER 12:51
DX: R42 Dizziness and giddiness (principal); R55 Syncope and collapse; R11.2 Nausea with vomiting, unspecified; R19.7 Diarrhea, unspecified
CPT/HCPCS: 99284; 96361; 96374; 96375; 36415; 83690; 85025; 81025; 80053; 81001; 87804; J1200; J2405; J7030

== ENCOUNTER 2017-02-16 16:11 | Emergency (ER) | payer SELFPAY ==
[2017-02-16 17:31] LABS: ABSOLUTE EOSINOPHILS # (AUTO) 0.3 10^3/uL (0.0-0.6); ABSOLUTE MONOCYTES (AUTO) 0.5 10^3/uL (0.1-1.4); ABSOLUTE NEUT (AUTO) 6.3 10^3/uL (1.7-8.2); BASOPHILS % (AUTO) 0.2 % (0-2); EOSINOPHILS % (AUTO) 3.4 % (0-6); HEMATOCRIT 32.5 % (36.0-47.0); HEMOGLOBIN 11.6 g/dL (12.0-15.5); LYMPHOCYTES % (AUTO) 29.1 % (13-45); MEAN CORPUSCULAR HEMOGLOBIN 30.2 pg (27.0-33.4); MEAN CORPUSCULAR HGB CONC 35.7 g/dL (32.0-36.0); MEAN CORPUSCULAR VOLUME 85 fl (80-97); MONOCYTES % (AUTO) 4.9 % (3-13); PLATELET COUNT 333 10^3/uL (150-450); RED BLOOD COUNT 3.85 10^6/uL (3.72-5.28); RED CELL DISTRIBUTION WIDTH 14.4 % (11.5-14.0); SEGMENTED NEUTROPHILS % (AUTO) 62.4 % (42-78); TOTAL CELLS COUNTED % (AUTO) 100 %; WHITE BLOOD COUNT 10.1 10^3/uL (4.0-10.5)
[2017-02-16 17:50] LABS: ALANINE AMINOTRANSFERASE 23 U/L (9-52); ALBUMIN 4.3 g/dL (3.5-5.0); ALKALINE PHOSPHATASE 42 U/L (38-126); ANION GAP 16 (5-19); ASPARTATE AMINO TRANSFERASE 17 U/L (14-36); BILIRUBIN,DIRECT 0.3 mg/dL (0.0-0.4); BILIRUBIN,TOTAL 0.4 mg/dL (0.2-1.3); BLOOD UREA NITROGEN 10 mg/dL (7-20); CALCIUM 9.9 mg/dL (8.4-10.2); CARBON DIOXIDE 18 mmol/L (22-30); CHLORIDE 108 mmol/L (98-107); GLUCOSE 89 mg/dL (75-110); POTASSIUM 4.1 mmol/L (3.6-5.0); SODIUM 142.4 mmol/L (137-145); TOTAL PROTEIN 7.3 g/dL (6.3-8.2)
[2017-02-16 17:51] LABS: ALCOHOL < 10 mg/dL (NONE DETECTED)
[2017-02-16 18:05] LABS: ACETAMINOPHEN < 10 ug/mL (10-30); SALICYLATE < 1.0 mg/dL (2.0-20.0)
[2017-02-16 18:25] LABS: APPEARANCE,URINE CLEAR; BILIRUBIN,URINE NEGATIVE (NEGATIVE); COLOR,URINE STRAW; GLUCOSE, URINE NEGATIVE (NEGATIVE); KETONES,URINE NEGATIVE (NEGATIVE); LEUKOCYTE ESTERASE,URINE NEGATIVE (NEGATIVE); NITRITE,URINE NEGATIVE (NEGATIVE); PROTEIN,URINE NEGATIVE (NEGATIVE); URINE SPECIFIC GRAVITY 1.005; UROBILINOGEN,URINE NEGATIVE mg/dL (<2.0)
--- NOTE | 2017-02-16 18:46 | ER Document Report ---
ED Seizure - General Chief Complaint: poss seizure Stated Complaint: POSSIBLE SEIZURE Time Seen by Provider: 02/16/17 17:05 Notes: Patient presents emergency department complaining of seizure-like activity. 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 Had a seizure. Did not hit her head. States that this is happened before. Has not seen a neurologist. States that she has a headache. Denies any other symptoms at this time. Was seen here a few days ago for nausea and vomiting. Was seen here a few days prior to that for the same symptoms. - HPI Severity: Mild Pain Level: 1 Continued on arrival to ED: No - Related Data Allergies/Adverse Reactions: haloperidol [From Haldol] Adverse Reaction (Verified 01/01/17 01:56) haloperidol lactate [From Haldol] Adverse Reaction (Verified 01/01/17 01:56) prochlorperazine edisylate [From Compazine] Adverse Reaction (Verified 01/01/17 01:56) prochlorperazine maleate [From Compazine] Adverse Reaction (Verified 01/01/17 01 :56) Past Medical History - Social History Smoking Status: Never Smoker Frequency of alcohol use: None Drug Abuse: None Family History: Reviewed & Not Pertinent, CVA, DM, Hypertension, Malignancy Patient has suicidal ideation: No Patient has homicidal ideation: No Neurological Medical History: Reports: Hx Migraine, Hx Seizures - No diagnosed seizure disorder (January 2017) Endocrine Medical History: Denies: Hx Diabetes Mellitus Type 1, Hx Diabetes Mellitus Type 2 Renal/ Medical History: Denies: Hx Peritoneal Dialysis Psychiatric Medical History: Reports: Hx Anxiety Past Surgical History: Reports: Hx Section - x 2 - Immunizations Immunizations up to date: Yes Hx Diphtheria, Pertussis, Tetanus Vaccination: Yes Course - Laboratory Result Diagrams: 02/16/17 17:00 02/16/17 17:00 Laboratory results interpreted by me: 02/16/17 02/16/17 02/16/17 17:00 17:00 17:00 Hgb 11.6 L Hct 32.5 L RDW 14.4 H Chloride 108 H Carbon Dioxide 18 L Salicylates < 1.0 L Acetaminophen < 10 L Discharge - Discharge Instructions: Migraine Headache ([facility]), New Seizure ([facility]) Additional Instructions: You may be having seizures. This means you are unable to drive or operate a vehicle. Please do not drive or operate a vehicle or any other machinery. Prescriptions: Divalproex Sodium [Depakote] 250 mg PO BID 30 Days #60 tablet.
[2017-02-16 18:53] LABS: URINE AMPHETAMINES SCREEN NEGATIVE; URINE BARBITURATES SCREEN UNCONFIRMED POSITIVE; URINE BENZODIAZEPINES SCREEN NEGATIVE; URINE COCAINE SCREEN NEGATIVE; URINE MARIJUANA (THC) SCREEN NEGATIVE; URINE METHADONE SCREEN NEGATIVE; URINE PHENCYCLIDINE SCREEN NEGATIVE
[2017-02-16] MEDS ORDERED: KETOROLAC TROMETHAMINE INJ/PF 30 MG/1 ML SDV IV ONE (19:18)
[2017-02-16 20:49] VITALS: BP 100/60
== END 2017-02-16 20:45 | disposition home or self-care (01) ==
LOC: ER 16:11
DX: R56.9 Unspecified convulsions (principal); R51 Headache
CPT/HCPCS: 99285; 96374; 36415; 80307 ×4; 83735; 84703; 85025; 80053; 81001; J1885

== ENCOUNTER 2017-03-11 09:32 | Emergency (ER) | payer OTHER ==
[2017-03-11] MEDS ORDERED: NORMAL SALINE 1000 ML 1,000 ML IV ONE (09:51)
[2017-03-11 10:47] LABS: ABSOLUTE BASOPHILS # (AUTO) 0.1 10^3/uL (0.0-0.2); ABSOLUTE EOSINOPHILS # (AUTO) 0.5 10^3/uL (0.0-0.6); ABSOLUTE LYMPHOCYTES (AUTO) 1.5 10^3/uL (0.5-4.7); ABSOLUTE MONOCYTES (AUTO) 0.5 10^3/uL (0.1-1.4); ABSOLUTE NEUT (AUTO) 5.5 10^3/uL (1.7-8.2); BASOPHILS % (AUTO) 0.9 % (0-2); EOSINOPHILS % (AUTO) 6.2 % (0-6); HEMATOCRIT 35.7 % (36.0-47.0); HEMOGLOBIN 12.5 g/dL (12.0-15.5); HGB HCT DIFFERENCE 1.8; LYMPHOCYTES % (AUTO) 18.5 % (13-45); MEAN CORPUSCULAR HEMOGLOBIN 30.4 pg (27.0-33.4); MEAN CORPUSCULAR VOLUME 87 fl (80-97); MONOCYTES % (AUTO) 6.5 % (3-13); RED BLOOD COUNT 4.11 10^6/uL (3.72-5.28); RED CELL DISTRIBUTION WIDTH 15.7 % (11.5-14.0); SEGMENTED NEUTROPHILS % (AUTO) 67.9 % (42-78); WHITE BLOOD COUNT 8.1 10^3/uL (4.0-10.5)
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
[2017-03-11 11:53] LABS: ANION GAP 11 (5-19); BLOOD UREA NITROGEN 11 mg/dL (7-20); CALCIUM 9.3 mg/dL (8.4-10.2); CARBON DIOXIDE 21 mmol/L (22-30); CHLORIDE 112 mmol/L (98-107); CREATININE RESULT 0.86 mg/dL (0.52-1.25); GLUCOSE 82 mg/dL (75-110); POTASSIUM 4.3 mmol/L (3.6-5.0); SODIUM 143.7 mmol/L (137-145)
[2017-03-11 11:58] LABS: VALPROIC ACID 63.6 ug/mL (50.0-120.0)
[2017-03-11] MEDS ORDERED: KETOROLAC TROMETHAMINE INJ/PF 30 MG/1 ML SDV IV ONE (13:07)
[2017-03-11] MEDS ORDERED: LIDOCAINE 5% (700 MG) TRANSDERMAL ADH..PATCH TP ONE (13:07)
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
[2017-03-11 13:55] VITALS: BP 121/71
== END 2017-03-11 13:55 | disposition home or self-care (01) ==
LOC: ER 09:32
DX: R51 Headache (principal); M54.2 Cervicalgia; V89.2XXA Person injured in unspecified motor-vehicle accident, traffic, initial encounter
CPT/HCPCS: 99284; 96361; 96374; 36415; 84703; 85025; 80048; 80164; 70450; 72125; J1885; J7030

== ENCOUNTER 2017-04-28 10:52 | Emergency (ER) | payer SELFPAY ==
[2017-04-28] MEDS ORDERED: LORAZEPAM 1 MG TABLET PO ONE (11:26)
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
[2017-04-28 11:52] LABS: ABSOLUTE EOSINOPHILS # (AUTO) 0.5 10^3/uL (0.0-0.6); ABSOLUTE LYMPHOCYTES (AUTO) 2.1 10^3/uL (0.5-4.7); ABSOLUTE MONOCYTES (AUTO) 0.8 10^3/uL (0.1-1.4); ABSOLUTE NEUT (AUTO) 4.9 10^3/uL (1.7-8.2); BASOPHILS % (AUTO) 0.5 % (0-2); EOSINOPHILS % (AUTO) 6.5 % (0-6); HEMATOCRIT 36.1 % (36.0-47.0); HEMOGLOBIN 12.8 g/dL (12.0-15.5); LYMPHOCYTES % (AUTO) 25.1 % (13-45); MEAN CORPUSCULAR HEMOGLOBIN 30.7 pg (27.0-33.4); MEAN CORPUSCULAR HGB CONC 35.5 g/dL (32.0-36.0); MEAN CORPUSCULAR VOLUME 86 fl (80-97); PLATELET COUNT 227 10^3/uL (150-450); RED BLOOD COUNT 4.18 10^6/uL (3.72-5.28); RED CELL DISTRIBUTION WIDTH 14.6 % (11.5-14.0); SEGMENTED NEUTROPHILS % (AUTO) 58.9 % (42-78); TOTAL CELLS COUNTED % (AUTO) 100 %; WHITE BLOOD COUNT 8.4 10^3/uL (4.0-10.5)
[2017-04-28 12:11] LABS: ALANINE AMINOTRANSFERASE 19 U/L (9-52); ALBUMIN 3.9 g/dL (3.5-5.0); ALKALINE PHOSPHATASE 37 U/L (38-126); ANION GAP 9 (5-19); ASPARTATE AMINO TRANSFERASE 19 U/L (14-36); BILIRUBIN,DIRECT 0.3 mg/dL (0.0-0.4); BILIRUBIN,TOTAL 0.3 mg/dL (0.2-1.3); BLOOD UREA NITROGEN 11 mg/dL (7-20); CALCIUM 9.7 mg/dL (8.4-10.2); CARBON DIOXIDE 24 mmol/L (22-30); CHLORIDE 108 mmol/L (98-107); CREATINE KINASE 39 U/L (30-135); GLUCOSE 85 mg/dL (75-110); POTASSIUM 4.4 mmol/L (3.6-5.0); SODIUM 140.8 mmol/L (137-145); TOTAL PROTEIN 7.1 g/dL (6.3-8.2)
[2017-04-28 12:16] LABS: APPEARANCE,URINE SLIGHTLY-CLOUDY; BILIRUBIN,URINE NEGATIVE (NEGATIVE); COLOR,URINE YELLOW; GLUCOSE, URINE NEGATIVE (NEGATIVE); KETONES,URINE NEGATIVE (NEGATIVE); LEUKOCYTE ESTERASE,URINE NEGATIVE (NEGATIVE); NITRITE,URINE NEGATIVE (NEGATIVE); PROTEIN,URINE 100 mg/dL (NEGATIVE); URINE SPECIFIC GRAVITY 1.031
[2017-04-28 12:18] LABS: A TYPE INFLUENZA AG NEGATIVE (NEGATIVE); B INFLUENZA AG NEGATIVE (NEGATIVE)
--- NOTE | 2017-04-28 12:50 | ER Document Report ---
ED General - General Chief Complaint: Probable Seizure Stated Complaint: POSSIBLE SEIZURE Time Seen by Provider: 04/28/17 10:55 Mode of Arrival: Ambulatory Information source: Patient Notes: 27-year-old female history of seizure disorder on Depakote who presents with vague seizure-like activity during which time she states she is awake and is shaking and is able to make phone calls. Patient notes the symptoms occurred today she has been feeling URI symptoms for the past week. TRAVEL OUTSIDE OF THE [place] IN LAST 30 DAYS: No - HPI Onset: Just prior to arrival Onset/Duration: Sudden Quality of pain: Achy Severity: Mild Pain Level: 1 Associated symptoms: Body/muscle aches, Headache, Nausea Exacerbated by: Denies Relieved by: Denies Similar symptoms previously: No Recently seen / treated by doctor: No - Related Data Allergies/Adverse Reactions: haloperidol [From Haldol] Adverse Reaction (Verified 04/28/17 11:15) haloperidol lactate [From Haldol] Adverse Reaction (Verified 04/28/17 11:15) prochlorperazine edisylate [From Compazine] Adverse Reaction (Verified 04/28/17 11:15) prochlorperazine maleate [From Compazine] Adverse Reaction (Verified 04/28/17 11 :15) Past Medical History - General Information source: Patient - Social History Smoking Status: Never Smoker Cigarette use (# per day): No Chew tobacco use (# tins/day): No Smoking Education Provided: No Frequency of alcohol use: None Drug Abuse: None Lives with: Alone Family History: Reviewed & Not Pertinent, CVA, DM, Hypertension, Malignancy Patient has suicidal ideation: No Patient has homicidal ideation: No - Past Medical History Cardiac Medical History: Reports: None Pulmonary Medical History: Reports: None EENT Medical History: Reports: None Neurological Medical History: Reports: Hx Migraine, Hx Seizures - No diagnosed seizure disorder (January 2017) Endocrine Medical History: Reports: None. Denies: Hx Diabetes Mellitus Type 1, Hx Diabetes Mellitus Type 2 Renal/ Medical History: Reports: None, Other - ON DEPO-PROVERA. Denies: Hx Peritoneal Dialysis Malignancy Medical History: Reports: None GI Medical History: Reports: None Musculoskeltal Medical History: Reports None Psychiatric Medical History: Reports: Hx Anxiety Past Surgical History: Reports: Hx Section - x 2 - Immunizations Immunizations up to date: Yes Hx Diphtheria, Pertussis, Tetanus Vaccination: Yes Review of Systems - Review of Systems Notes: REVIEW OF SYSTEMS: CONSTITUTIONAL : Admits to URI symptoms over the past week EENT: Denies eye, ear, throat, or mouth pain or symptoms. Denies nasal or sinus congestion or discharge. Denies throat, tongue, or mouth swelling or difficulty swallowing. CARDIOVASCULAR: Denies chest pain. Denies palpitations or racing or irregular heart beat. Denies ankle edema. RESPIRATORY: Denies cough, cold, or chest congestion. Denies shortness of breath, difficulty breathing, or wheezing. GASTROINTESTINAL: Admits to nausea vomiting GENITOURINARY: Denies difficulty urinating, painful urination, burning, frequency, blood in urine, or discharge. FEMALE GENITOURINARY: Denies vaginal bleeding, heavy or abnormal periods, irregular periods. Denies vaginal discharge or odor. MUSCULOSKELETAL: Denies back or neck pain or stiffness. Denies joint pain or swelling. SKIN: Denies rash, lesions or sores. HEMATOLOGIC : Denies easy bruising or bleeding. LYMPHATIC: Denies swollen, enlarged glands. NEUROLOGICAL: Admits to headache PSYCHIATRIC: Denies anxiety or stress. Denies depression, suicidal ideation, or homicidal ideation. ALL OTHER SYSTEMS REVIEWED AND NEGATIVE. PHYSICAL EXAMINATION: GENERAL: Well-appearing, well-nourished and in no acute distress. HEAD: Atraumatic, normocephalic. EYES: Pupils equal round and reactive to light, extraocular movements intact, conjunctiva are normal. ENT: Nares patent, oropharynx clear without exudates. Moist mucous membranes. NECK: Normal range of motion, supple without lymphadenopathy LUNGS: Breath sounds clear to auscultation bilaterally and equal. No wheezes rales or rhonchi. HEART: Regular rate and rhythm without murmurs ABDOMEN: Soft, gravid abdomen nontender nondistended Female : deferred Musculoskeletal: Normal range of motion, no pitting or edema. No cyanosis. NEUROLOGICAL: Cranial nerves grossly intact. Normal speech, normal gait. Normal sensory, motor exams PSYCH: Normal mood, normal affect. SKIN: Warm, Dry, normal turgor, no rashes or lesions noted. Dictation was performed using [employer] voice recognition software Physical Exam - Vital signs Vitals: Temp Pulse Resp BP Pulse Ox 98.7 F 95 14 104/68 98 04/28/17 11:06 04/28/17 11:06 04/28/17 11:06 04/28/17 11:06 04/28/17 11:06 Course - Re-evaluation Re-evalutation: 04/28/17 16:36 Lab work noted no significant abnormality, the patient is noted to be subtherapeutic so on her Depakote, it is questionable if there are actual seizures versus pseudoseizures ongoing. Nonetheless patient looks well is in no distress and had no signs of the flu After performing a Medical Screening Examination, I estimate there is LOW risk for ACUTE GLAUCOMA, TEMPORAL ARTERITIS, MENINGITIS, INCRANIAL HEMORRHAGE, or ISCHEMIC STROKE thus I consider the discharge disposition reasonable. I have reevaluated this patient multiple times and no significant life threatening changes are noted. The patient and I have discussed the diagnosis and risks, and we agree with discharging home with close follow-up with the understanding that symptoms and presentations can change. We also discussed returning to the Emergency Department immediately if new or worsening symptoms occur. We have discussed the symptoms which are most concerning (e.g., changing or worsening symptoms, new numbness or weakness, vomiting, fever) that necessitate immediate return. 04/28/17 16:40 - Vital Signs Vital signs: Temp Pulse Resp BP Pulse Ox 98.7 F 95 21 H 106/70 98 04/28/17 11:06 04/28/17 11:06 04/28/17 13:03 04/28/17 13:03 04/28/17 11:06 - Laboratory Result Diagrams: 04/28/17 11:30 04/28/17 11:30 Laboratory results interpreted by me: 04/28/17 04/28/17 04/28/17 11:30 11:30 11:57 RDW 14.6 H Eosinophils % 6.5 H Chloride 108 H Alkaline Phosphatase 37 L Urine Protein 100 H Urine Urobilinogen 2.0 H Valproic Acid 47.5 L Discharge - Discharge Clinical Impression: subtherapeutic depakote level, Seizure-like activity Condition: Stable Disposition: HOME, SELF-CARE Instructions: Seizure, Known Epileptic ([facility]) Additional Instructions: Follow up with your physician tomorrow for further care or return to the ED IMMEDIATELY if symptoms worsen or new concerns occur. If you cannot afford to follow up with your primary care physician a list of low cost clinics have been provided at the end of your discharge papers as well.
[2017-04-28 13:21] VITALS: BP 106/70
== END 2017-04-28 13:21 | disposition home or self-care (01) ==
LOC: ER 10:52
DX: R56.9 Unspecified convulsions (principal); R11.2 Nausea with vomiting, unspecified; R79.89 Other specified abnormal findings of blood chemistry
CPT/HCPCS: 36415; 80053; 80164; 81001; 82550; 85025; 87804; 99284

== ENCOUNTER 2017-05-24 19:14 | Emergency (ER) | payer OTHER ==
[2017-05-24 19:26] VITALS: BP 111/68
--- NOTE | 2017-05-24 20:05 | ER Document Report ---
HPI - HPI Patient complains to provider of: Indication refill Onset: This evening Onset/Duration: Gradual Pain Level: Denies Context: Patient presents stating that she ran out of her Depakote this evening. Patient denies any seizure activity. Patient states that she plans to follow- up with her primary doctor on Saturday for recheck. Associated Symptoms: None Exacerbated by: Denies Relieved by: Denies Similar symptoms previously: No Recently seen / treated by doctor: No - ROS ROS below otherwise negative: Yes Systems Reviewed and Negative: Yes All other systems reviewed and negative - CONSTITUTIONAL Constitutional: DENIES: Fever - EENT EENT: DENIES: Sore Throat - NEURO Neurology: DENIES: Headache, Weakness - GASTROINTESTINAL Gastrointestinal: DENIES: Nausea - REPRODUCTIVE Reproductive: DENIES: : - DERM Skin Color: Normal Skin Problems: None Past Medical History - General Information source: Patient - Social History Smoking Status: Never Smoker Frequency of alcohol use: None Drug Abuse: None Occupation: [employer] Lives with: Family Family History: Reviewed & Not Pertinent, CVA, DM, Hypertension, Malignancy Neurological Medical History: Reports: Hx Migraine, Hx Seizures - No diagnosed seizure disorder (January 2017) Endocrine Medical History: Denies: Hx Diabetes Mellitus Type 1, Hx Diabetes Mellitus Type 2 Renal/ Medical History: Denies: Hx Peritoneal Dialysis Psychiatric Medical History: Reports: Hx Anxiety Past Surgical History: Reports: Hx Section - x 2 - Immunizations Immunizations up to date: Yes Hx Diphtheria, Pertussis, Tetanus Vaccination: Yes Vertical Provider Document - CONSTITUTIONAL Agree With Documented VS: Yes Exam Limitations: No Limitations General Appearance: WD/WN, No Apparent Distress - INFECTION CONTROL TRAVEL OUTSIDE OF THE [place] IN LAST 30 DAYS: No - HEENT HEENT: Atraumatic, Normocephalic - NECK Neck: Normal Inspection, Supple - RESPIRATORY Respiratory: Breath Sounds Normal, No Respiratory Distress O2 Sat by Pulse Oximetry: 100 - CARDIOVASCULAR Cardiovascular: Regular Rate, Regular Rhythm - BACK Back: Normal Inspection - MUSCULOSKELETAL/EXTREMETIES Musculoskeletal/Extremeties: MAEW - NEURO Level of Consciousness: Awake, Alert, Appropriate Motor/Sensory: No Motor Deficit - DERM Integumentary: Warm, Dry Course - Vital Signs Vital signs: Temp Pulse Resp BP Pulse Ox 98.7 F 81 14 111/68 100 05/24/17 19:25 05/24/17 19:25 05/24/17 19:25 05/24/17 19:25 05/24/17 19:25 Discharge - Discharge Clinical Impression: Medication refill, Hx of seizure disorder Condition: Stable Disposition: HOME, SELF-CARE Instructions: Seizure, Known Epileptic ([facility]) Additional Instructions: Return immediately for any new or worsening symptoms Followup with your primary care provider, call tomorrow to make a followup appointment Prescriptions: Divalproex Sodium 250 mg PO BID #20 tablet.dr Referrals: THERESA BROWN MD [COMMUNITY BASED STAFF] - 05/27/17 KAREN KEARNS MD [NO LOCAL MD] - Follow up as needed
== END 2017-05-24 20:13 | disposition home or self-care (01) ==
LOC: ER 19:14
DX: Z76.0 Encounter for issue of repeat prescription (principal); G40.909 Epilepsy, unspecified, not intractable, without status epilepticus
CPT/HCPCS: 99281

== ENCOUNTER 2017-09-23 18:21 | Emergency (ER) | payer SELFPAY ==
--- NOTE | 2017-09-23 18:43 | ER Document Report ---
ED Seizure - General Mode of Arrival: Ambulatory Information source: Patient <JONI MANRIQUE - Last Filed: 09/23/17 23:21> <NAHEDABNER Bradford - Last Filed: 09/25/17 19:15> - General Chief Complaint: Probable Seizure Stated Complaint: POSSIBLE SEIZURE Time Seen by Provider: 09/23/17 18:37 Notes: 27-year-old female presenting to the emergency department today after complaints of probable seizure. Patient states she was driving and began to "feel funny" so she pulled into a gas station and called 911. Patient does admit to increased stress recently. Patient states she has been taking her 500 mg of Depakote as prescribed. Patient has had associated nausea, vomiting, and a headache. (JONI MANRIQUE) - Related Data Allergies/Adverse Reactions: haloperidol [From Haldol] Adverse Reaction (Verified 04/28/17 11:15) haloperidol lactate [From Haldol] Adverse Reaction (Verified 04/28/17 11:15) prochlorperazine edisylate [From Compazine] Adverse Reaction (Verified 04/28/17 11:15) prochlorperazine maleate [From Compazine] Adverse Reaction (Verified 04/28/17 11 :15) Past Medical History - General Information source: Patient - Social History Smoking Status: Never Smoker Cigarette use (# per day): No Frequency of alcohol use: None Drug Abuse: None Lives with: Family Family History: Reviewed & Not Pertinent, CVA, DM, Hypertension, Malignancy Neurological Medical History: Reports: Hx Migraine, Hx Seizures - No diagnosed seizure disorder (January 2017) Psychiatric Medical History: Reports: Hx Anxiety Past Surgical History: Reports: Hx Section - x 2 - Immunizations Immunizations up to date: Yes Hx Diphtheria, Pertussis, Tetanus Vaccination: Yes <JONI MANRIQUE - Last Filed: 09/23/17 23:21> Review of Systems - Review of Systems Constitutional: No symptoms reported EENT: No symptoms reported Cardiovascular: No symptoms reported Respiratory: No symptoms reported Gastrointestinal: No symptoms reported Genitourinary: No symptoms reported Female Genitourinary: No symptoms reported Musculoskeletal: No symptoms reported Skin: No symptoms reported Hematologic/Lymphatic: No symptoms reported Neurological/Psychological: See HPI, Seizure - possible -: Yes All other systems reviewed and negative <JONI MANRIQUE - Last Filed: 09/23/17 23:21> Physical Exam <JONI MANRIQUE - Last Filed: 09/23/17 23:21> <ABNER DOCKERY - Last Filed: 09/25/17 19:15> - Vital signs Vitals: Pulse Ox 97 09/23/17 18:42 - Notes Notes: Physical Exam: General: Alert, appears well. HEENT: Normocephalic. Atraumatic. PERRL. Extraocular movements intact. Oropharynx clear. No tongue biting or laceration. Neck: Supple. Non-tender. Respiratory: No respiratory distress. Clear and equal breath sounds bilaterally. Cardiovascular: Regular rate and rhythm. Abdominal: Normal Inspection. Non-tender. No distension. Normal Bowel Sounds. Back: Non-tender. No deformity or step off. Extremities: Moves all four extremities. Upper extremities: Normal inspection. Normal ROM. Lower extremities: Normal inspection. No edema. Normal ROM. Neurological: Normal cognition. AAOx4. Normal speech. Psychological: Normal affect. Normal Mood. Skin: Warm. Dry. Normal color. (JONI MANRIQUE) Course - Laboratory Result Diagrams: 09/23/17 19:25 09/23/17 20:30 <JONI MANRIQUE - Last Filed: 09/23/17 23:21> - Laboratory Result Diagrams: 09/23/17 19:25 09/23/17 20:30 <ABNER DOCKERY - Last Filed: 09/25/17 19:15> - Re-evaluation Re-evalutation: 09/23/17 23:21 Driving precautions given to patient (JONI MANRIQUE) 09/23/17 21:37 Patient's labs within normal limits no concerning findings and patient is in therapeutic range for her Depakote. Patient is on a seizure activity and is not postictal in the emergency department. Patient story is suspicious for seizure but also sounds like she possibly had a stress reaction due to her story see history and physical. We will be discharged at this time with return precautions provided (ABNER DOCKERY) - Vital Signs Vital signs: Temp Pulse Resp BP Pulse Ox 98.7 F 94 19 112/53 L 100 09/23/17 22:20 09/23/17 18:50 09/23/17 22:15 09/23/17 22:15 09/23/17 22:15 - Laboratory Laboratory results interpreted by me: 09/23/17 19:25 Hct 35.4 L RDW 15.2 H Discharge <JONI MANRIQUE - Last Filed: 09/23/17 23:21> <ABNER DOCKERY - Last Filed: 09/25/17 19:15> - Discharge Clinical Impression: Seizure Condition: Good Disposition: HOME, SELF-CARE Referrals: ELAINE WALLIS MD [Primary Care Provider] - Follow up as needed Scribe Attestation: 09/25/17 19:15 I personally performed the services described documentation, reviewed and edited the documentation which was dictated to describe my presence, and it accurately records my words and actions. (ABNER DOCKERY) Scribe Documentation - Scribe Written by Elmer:: Elmer Szymanski, 09/23/2017 [id number] acting as scribe for :: Nahed <JONI MANRIQUE - Last Filed: 09/23/17 23:21>
[2017-09-23 19:37] LABS: ABSOLUTE EOSINOPHILS # (AUTO) 0.2 10^3/uL (0.0-0.6); ABSOLUTE LYMPHOCYTES (AUTO) 1.8 10^3/uL (0.5-4.7); ABSOLUTE MONOCYTES (AUTO) 0.7 10^3/uL (0.1-1.4); ABSOLUTE NEUT (AUTO) 3.6 10^3/uL (1.7-8.2); BASOPHILS % (AUTO) 0.6 % (0-2); EOSINOPHILS % (AUTO) 3.5 % (0-6); HEMATOCRIT 35.4 % (36.0-47.0); HEMOGLOBIN 12.2 g/dL (12.0-15.5); LYMPHOCYTES % (AUTO) 27.9 % (13-45); MEAN CORPUSCULAR HEMOGLOBIN 30.4 pg (27.0-33.4); MEAN CORPUSCULAR HGB CONC 34.3 g/dL (32.0-36.0); MEAN CORPUSCULAR VOLUME 88 fl (80-97); MONOCYTES % (AUTO) 11.5 % (3-13); PLATELET COUNT 275 10^3/uL (150-450); RED BLOOD COUNT 4.01 10^6/uL (3.72-5.28); RED CELL DISTRIBUTION WIDTH 15.2 % (11.5-14.0); SEGMENTED NEUTROPHILS % (AUTO) 56.5 % (42-78); TOTAL CELLS COUNTED % (AUTO) 100 %; WHITE BLOOD COUNT 6.3 10^3/uL (4.0-10.5)
[2017-09-23 21:07] LABS: ALANINE AMINOTRANSFERASE 34 U/L (9-52); ALBUMIN 3.9 g/dL (3.5-5.0); ALKALINE PHOSPHATASE 47 U/L (38-126); ANION GAP 11 (5-19); ASPARTATE AMINO TRANSFERASE 33 U/L (14-36); BILIRUBIN,DIRECT 0.2 mg/dL (0.0-0.4); BILIRUBIN,TOTAL 0.2 mg/dL (0.2-1.3); BLOOD UREA NITROGEN 10 mg/dL (7-20); CALCIUM 9.1 mg/dL (8.4-10.2); CARBON DIOXIDE 27 mmol/L (22-30); CHLORIDE 105 mmol/L (98-107); GLUCOSE 104 mg/dL (75-110); POTASSIUM 4.4 mmol/L (3.6-5.0); SODIUM 143.2 mmol/L (137-145); TOTAL PROTEIN 7.3 g/dL (6.3-8.2)
[2017-09-23] MEDS ORDERED: PROCHLORPERAZINE MALEATE 10 MG TABLET PO ONE (21:49)
[2017-09-23] MEDS ORDERED: BUTALB/ACETAMINOPHEN/CAFFEINE 1 TAB EACH PO ONE (22:02)
[2017-09-23 22:25] VITALS: BP 112/53
--- NOTE | 2017-09-24 06:19 | EKG REPORT ---
SEVERITY:- NORMAL ECG - SINUS RHYTHM : Confirmed by: Ishmael Price MD 24-Sep-2017 06:18:28
== END 2017-09-23 22:25 | disposition home or self-care (01) ==
LOC: ER 18:21
DX: R56.9 Unspecified convulsions (principal); Z79.899 Other long term (current) drug therapy; R11.2 Nausea with vomiting, unspecified; R51 Headache
CPT/HCPCS: 93005; 99284; 36415; 83735; 84703; 85025; 80053; 80164; 93010; J3490

== ENCOUNTER 2018-04-09 07:26 | Emergency (ER) | payer SELFPAY ==
[2018-04-09] MEDS ORDERED: CEFTRIAXONE INJ 250 MG VIAL IM ONE (08:03)
[2018-04-09] MEDS ORDERED: AZITHROMYCIN 250 MG TABLET PO ONE (08:03)
[2018-04-09] MEDS ORDERED: LIDOCAINE 1% INJ-PF (10 MG/ML) 30 ML SDV INJ ONE (08:03)
[2018-04-09] MEDS ORDERED: IBUPROFEN 600 MG TABLET PO ONE (08:03)
--- NOTE | 2018-04-09 08:11 | ER Document Report ---
ED GI/ - General Chief Complaint: Vaginal Discharge Stated Complaint: URINARY ISSUE Time Seen by Provider: 04/09/18 07:41 Mode of Arrival: Ambulatory Information source: Patient Notes: Patient is an otherwise healthy 28-year-old female who presents to the emergency department with chief complaints of discomfort after urination, abnormal vaginal discharge and lower abdominal pain. Patient reports her symptoms have been ongoing for approximately 1 week. She states she tried taking [id number] yeast medicine without. TRAVEL OUTSIDE OF THE [place] IN LAST 30 DAYS: No - Related Data Allergies/Adverse Reactions: haloperidol [From Haldol] Adverse Reaction (Verified 04/09/18 07:27) haloperidol lactate [From Haldol] Adverse Reaction (Verified 04/09/18 07:27) prochlorperazine edisylate [From Compazine] Adverse Reaction (Verified 04/09/18 07:27) prochlorperazine maleate [From Compazine] Adverse Reaction (Verified 04/09/18 07:27) Past Medical History - General Information source: Patient - Social History Smoking Status: Never Smoker Frequency of alcohol use: None Drug Abuse: None Family History: Reviewed & Not Pertinent, CVA, DM, Hypertension, Malignancy Patient has suicidal ideation: No Patient has homicidal ideation: No Neurological Medical History: Reports: Hx Migraine, Hx Seizures - No diagnosed seizure disorder (January 2017) Endocrine Medical History: Denies: Hx Diabetes Mellitus Type 1, Hx Diabetes Mellitus Type 2 Renal/ Medical History: Denies: Hx Peritoneal Dialysis Psychiatric Medical History: Reports: Hx Anxiety Past Surgical History: Reports: Hx Section - x 2 - Immunizations Immunizations up to date: Yes Hx Diphtheria, Pertussis, Tetanus Vaccination: Yes Review of Systems - Review of Systems Constitutional: denies: Chills, Fever EENT: No symptoms reported Cardiovascular: No symptoms reported Respiratory: No symptoms reported Gastrointestinal: Abdominal pain Genitourinary: Frequency, Pain - After urination, Urgency Female Genitourinary: Vaginal discharge, Vaginal odor Musculoskeletal: No symptoms reported Skin: No symptoms reported Neurological/Psychological: No symptoms reported Physical Exam - Vital signs Vitals: Temp Pulse Resp BP Pulse Ox 98.2 F 78 16 109/52 L 100 04/09/18 07:29 04/09/18 07:29 04/09/18 07:29 04/09/18 07:29 04/09/18 07:29 - Notes Notes: PHYSICAL EXAMINATION: GENERAL: Well-appearing, well-nourished and in no acute distress. HEAD: Atraumatic, normocephalic. EYES: Pupils equal round and reactive to light, extraocular movements intact, conjunctiva are normal. ENT: Nares patent, oropharynx clear without exudates. Moist mucous membranes. NECK: Normal range of motion, supple without lymphadenopathy LUNGS: Breath sounds clear to auscultation bilaterally and equal. No wheezes rales or rhonchi. HEART: Regular rate and rhythm without murmurs ABDOMEN: Soft, nondistended abdomen. Mild tenderness to palpation over suprapubic area. No guarding, no rebound. No masses appreciated. Female : No CVA tenderness. Normal external genitalia, scant clear discharge from cervix, no cervical motion tenderness, no adnexal tenderness. Musculoskeletal: Normal range of motion, no pitting or edema. No cyanosis. NEUROLOGICAL: Cranial nerves grossly intact. Normal speech, normal gait. Norm al sensory, motor exams PSYCH: Normal mood, normal affect. SKIN: Warm, Dry, normal turgor, no rashes or lesions noted. Course - Re-evaluation Re-evalutation: Mild tenderness to palpation to suprapubic area. No cervical motion tenderness or adnexal tenderness, unlikely PID. Urinalysis with small leukocyte esterase, patient does have symptoms of UTI so I will start her on antibiotics for this. Wet prep reveals 3+ bacteria, patient will be started on Flagyl. Chlamydia and gonorrhea are still pending. Patient is requesting prophylactic treatment for chlamydia and gonorrhea although she feels it is unlikely that she has these infections. Patient will be discharged home in stable condition. - Vital Signs Vital signs: Temp Pulse Resp BP Pulse Ox 98.2 F 78 16 109/52 L 100 04/09/18 07:29 04/09/18 07:29 04/09/18 07:29 04/09/18 07:29 04/09/18 07:29 - Laboratory Laboratory results interpreted by me: 04/09/18 07:41 Ur Leukocyte Esterase SMALL H Urine Ascorbic Acid 40 H Discharge - Discharge Clinical Impression: Bacterial vaginosis Urinary tract infection Qualifiers: Urinary tract infection type: site unspecified Hematuria presence: without hematuria Qualified Code(s): N39.0 - Urinary tract infection, site not specified Condition: Stable Disposition: HOME, SELF-CARE Additional Instructions: Vaginosis, Bacterial Your exam shows you have bacterial vaginosis. This condition is due to an overgrowth of bacteria in the vagina. Symptoms may include vaginal itching or pain, a smelly discharge, and sometimes burning with urination. Normally this is not transmitted by sexual contact. Vaginosis can be treated with oral or topical antibiotics. Metronidazole (Flagyl) pills are usually effective. Topical vaginal creams include Cleocin and Metro-Gel. You should avoid sexual contact until your symptoms are all better. Call the doctor if you develop pelvic pain, fever, or problems with urination, or if you don't improve as expected. Metronidazole Metronidazole (Flagyl) has been prescribed. This medication is used to kill a type of bacteria called anaerobes, and protozoan parasites such as trichomonas and Giardia. Flagyl often causes a metallic taste in the mouth and mild nausea. Do not use alcohol in any form with Flagyl (including alcohol in medication elixirs). Flagyl interacts with alcohol to cause flushing, palpitations, headache, stomach cramps, and vomiting. Do not use Flagyl if you are taking Antabuse (disulfiram). Call the doctor at once if you develop rash, shortness of breath, itching, or lightheadedness. URINARY TRACT INFECTION: Your evaluation indicates that you have a urinary tract infection. This is due to germs growing in the bladder. This is a common problem. This infection usually responds quickly to antibiotics. Your antibiotic should be taken exactly as prescribed. Drink plenty of fluids -- three to four quarts a day. Occasionally, a bladder anesthetic will be prescribed to help stop the feeling of urgency until the antibiotic has a chance to clear the infection. This may cause your urine to be dark orange. Certain urine infections require a culture. If the doctor obtained a culture, the results will be back in two days. You should call to see if a change in treatment is needed. A repeat urinalysis after you finish treatment is often recommended. The physician will let you know if further testing is required. Call the doctor if you develop fever, chills, flank pain, inability to urinate, or blood in the urine. CEPHALEXIN: The antibiotic you've been prescribed is a member of the cephalosporin class. This type of antibiotic covers a wide variety of infections, including those of the skin, lungs, and urinary tract. It's useful for staph infections. This antibiotic is slightly similar to the penicillin family. In rare cases, a person who is allergic to penicillin will also be allergic to this medi cation. If you have had a severe allergic reaction to penicillin, and have not taken this antibiotic since that time, notify your doctor. Antibiotics which cover many germs ("broad spectrum" antibiotics) are more likely to cause diarrhea or "yeast" infections. Women prone to vaginal yeast problems may suffer an attack after taking this antibiotic. In infants, oral thrush (white spots "stuck" on the cheek) or yeast diaper rash may result. See your doctor if these problems occur. Call at once if you develop itching, hives, shortness of breath, or lightheadedness. FOLLOW-UP CARE: If you have been referred to a physician for follow-up care, call the physicians office for an appointment as you were instructed or within the next two days. If you experience worsening or a significant change in your symptoms, notify the physician immediately or return to the Emergency Department at any time for re-evaluation. Prescriptions: Cephalexin [Cephalexin 500 MG Tablet] 1 tab PO BID 5 Days #10 tablet Metronidazole [Flagyl 500 mg Tablet] 500 mg PO BID 7 Days #14 tablet Forms: Return to Work Referrals: ELAINE WALLIS MD [COMMUNITY BASED STAFF] - Follow up as needed
[2018-04-09 08:54] LABS: BACTERIA (WET MOUNT) 3+ BACTERIA SEEN; RBCS (WET MOUNT) FEW RBCS SEEN; T.VAGINALIS (WET MOUNT) NO TRICHOMONAS SEEN; WBCS (WET MOUNT) 1+ WBCS SEEN; YEAST (WET MOUNT) NO YEAST SEEN
[2018-04-09] MEDS ORDERED: ONDANSETRON 4 MG TAB.RAPDIS PO ONE (09:24)
[2018-04-09 09:36] LABS: APPEARANCE,URINE SLIGHTLY-CLOUDY; BILIRUBIN,URINE NEGATIVE (NEGATIVE); COLOR,URINE YELLOW; GLUCOSE, URINE NEGATIVE (NEGATIVE); KETONES,URINE NEGATIVE (NEGATIVE); LEUKOCYTE ESTERASE,URINE SMALL (NEGATIVE); NITRITE,URINE NEGATIVE (NEGATIVE); PROTEIN,URINE NEGATIVE (NEGATIVE); URINE SPECIFIC GRAVITY 1.025; UROBILINOGEN,URINE NEGATIVE mg/dL (<2.0)
[2018-04-09 10:14] VITALS: BP 102/60
[2018-04-09 10:17] LABS: CHLAM PCR DETECTED (NOT DETECT); GON PCR NOT DETECTED (NOT DETECT)
== END 2018-04-09 10:14 | disposition home or self-care (01) ==
LOC: ER 07:26
DX: N39.0 Urinary tract infection, site not specified (principal); N76.0 Acute vaginitis; B96.89 Other specified bacterial agents as the cause of diseases classified elsewhere; R10.30 Lower abdominal pain, unspecified
CPT/HCPCS: 99283; 96372; 87086; 87210; 87088; 81001; 87491; 87591; S0119; J3490; J0696

== ENCOUNTER 2018-04-13 22:13 | Emergency (ER) | payer SELFPAY ==
[2018-04-13] MEDS ORDERED: IBUPROFEN 600 MG TABLET PO ONE (22:52)
--- NOTE | 2018-04-13 22:54 | RADIOLOGY REPORT (SQ) ---
EXAM DESCRIPTION: XR ANKLE 3 OR MORE VIEWS COMPLETED DATE/TME: 04/13/2018 00:00 CLINICAL HISTORY: 28 years Female, Injured L ankle when she fell skating COMPARISON: None. Findings: Coronal plane intra-articular fracture of the posterior malleolus of the left distal tibial plafond with 2 mm distraction. 1.2 x 0.2 cm curvilinear calcific avulsive fragment at the medial aspect of the medial malleolus. Moderate soft tissue swelling at the medial aspect of the distal left lower leg. Bones, joints, and soft tissues of the LEFT XR ANKLE 3 VIEWS appear otherwise intact. IMPRESSION: Posterior malleolar fracture of the left distal tibia. Small avulsive fragment at the left medial malleolus.
[2018-04-13] MEDS ORDERED: HYDROCODONE/ACETAMINOPHEN 7.5-325 MG TABLET PO ONE (23:39)
[2018-04-13] MEDS ORDERED: HYDROCODONE/ACETAMINOPHEN 5-325 MG (6 TAB/ER DISP) PO PRN (23:43)
--- NOTE | 2018-04-13 23:43 | ER Document Report ---
HPI - HPI Patient complains to provider of: ankle injury Time Seen by Provider: 04/13/18 22:52 Pain Level: 5 Context: Patient is a 28-year-old female presents to the emergency department for generalized left ankle pain and swelling. Patient states she was having the left ankle but states she has extreme pain, swelling roller skating with friends when she fell. Patient is unsure if she inverted her a very and has not been able to put any pressure on it. Patient denies any pain in her knee, hip, hitting of her head, neck, back, loss of consciousness or vomiting. Past medical history: None Medications: None Allergies: Haldol - REPRODUCTIVE Reproductive: DENIES: : - MUSCULOSKELETAL Musculoskeletal: REPORTS: Extremity pain - L ankle Past Medical History - General Information source: Patient - Social History Smoking Status: Never Smoker Frequency of alcohol use: Occasional Family History: Reviewed & Not Pertinent, CVA, DM, Hypertension, Malignancy Patient has suicidal ideation: No Patient has homicidal ideation: No Neurological Medical History: Reports: Hx Migraine, Hx Seizures - No diagnosed seizure disorder (January 2017) Endocrine Medical History: Denies: Hx Diabetes Mellitus Type 1, Hx Diabetes Mellitus Type 2 Renal/ Medical History: Denies: Hx Peritoneal Dialysis Psychiatric Medical History: Reports: Hx Anxiety Past Surgical History: Reports: Hx Section - x 2 - Immunizations Immunizations up to date: Yes Hx Diphtheria, Pertussis, Tetanus Vaccination: Yes Vertical Provider Document - CONSTITUTIONAL Agree With Documented VS: Yes Notes: GENERAL: Alert, interacts well. No acute distress. HEAD: Normocephalic, atraumatic. EYES: Pupils equal, round, and reactive to light. Extraocular movements intact. ENT: Oral mucosa moist, tongue midline. NECK: Full range of motion. Supple. Trachea midline. LUNGS: Clear to auscultation bilaterally, no wheezes, rales, or rhonchi. No respiratory distress. HEART: Regular rate and rhythm. No murmur ABDOMEN: Soft, non-tender. Non-distended. Bowel sounds present in all 4 quadrants. EXTREMITIES: Moves all 4 extremities spontaneously. normal radial and dorsalis pedis pulses bilaterally. Left lower extremity has swelling around bilateral malleolus, no erythema or ecchymosis noted. Capillary refill less than 2 seconds left distal extremity. Patient denies left knee, or left hip pain. BACK: no cervical, thoracic, lumbar midline tenderness. No saddle anesthesia, normal distal neurovascular exam. NEUROLOGICAL: Alert and oriented x3. Normal speech. cranial nerves II through XII grossly intact PSYCH: Normal affect, normal mood. SKIN: Warm, dry, normal turgor. No rashes or lesions noted. - INFECTION CONTROL TRAVEL OUTSIDE OF THE [place] IN LAST 30 DAYS: No Course - Re-evaluation Re-evalutation: 04/14/18 01:09 Patient's x-ray did reveal posterior malleolus fracture of the left distal tibia and a small avulsion fragment of the left medial malleolus. Splint was placed by PCT, checked by myself with good distal capillary refill noted. Discussed following up with orthopedics. Patient stable for discharge Discharge - Discharge Clinical Impression: Malleolar fracture Qualifiers: Encounter type: initial encounter Fracture type: closed Laterality: left Qualified Code(s): S82.892A - Other fracture of left lower leg, initial encounter for closed fracture Tibia fracture Qualifiers: Encounter type: initial encounter Tibia location: distal Fracture type: closed Fracture morphology: unspecified fracture morphology Laterality: left Qualified Code(s): S82.302A - Unspecified fracture of lower end of left tibia, initial encounter for closed fracture Condition: Stable Disposition: HOME, SELF-CARE Instructions: Avulsion Fracture of the Ankle ([facility]), Use of Crutches ([facility]), Fractured Ankle (Bimalleolar) ([facility]), Oral Narcotic Medication ([facility]) Additional Instructions: As we discussed your x-rays came back positive for fracture. Please do not take the splint we have placed on in the emergency department off. Please follow-up with orthopedics in the next 24-48 hours. Please return to the emergency room for any other concerning symptoms. Prescriptions: Hydrocodone/Acetaminophen [Stoddard 5-325 mg Tablet] 1 - 2 tab PO Q6 #20 tablet Referrals: HARINDER GARCIA MD [ACTIVE STAFF] - Follow up as needed
== END 2018-04-14 01:04 | disposition home or self-care (01) ==
LOC: ER 22:13
DX: M25.572 Pain in left ankle and joints of left foot (principal); S82.842A Displaced bimalleolar fracture of left lower leg, initial encounter for closed fracture; V00.121A Fall from non-in-line roller-skates, initial encounter; Y93.51 Activity, roller skating (inline) and skateboarding
CPT/HCPCS: 99283

== ENCOUNTER 2018-04-22 22:53 | Emergency (ER) | payer SELFPAY ==
[2018-04-23] MEDS ORDERED: NORMAL SALINE 1000 ML 1,000 ML IV ONE (00:26)
[2018-04-23] MEDS ORDERED: ONDANSETRON HCL INJ/PF 4 MG/2 ML SDV IV ONE (00:26)
[2018-04-23 01:19] LABS: ABSOLUTE BASOPHILS # (AUTO) 0.1 10^3/uL (0.0-0.2); ABSOLUTE EOSINOPHILS # (AUTO) 0.3 10^3/uL (0.0-0.6); ABSOLUTE LYMPHOCYTES (AUTO) 2.1 10^3/uL (0.5-4.7); ABSOLUTE MONOCYTES (AUTO) 0.5 10^3/uL (0.1-1.4); ABSOLUTE NEUT (AUTO) 5.4 10^3/uL (1.7-8.2); BASOPHILS % (AUTO) 0.8 % (0-2); EOSINOPHILS % (AUTO) 3.7 % (0-6); HEMATOCRIT 34.1 % (36.0-47.0); HEMOGLOBIN 12.1 g/dL (12.0-15.5); LYMPHOCYTES % (AUTO) 25.1 % (13-45); MEAN CORPUSCULAR HEMOGLOBIN 31.5 pg (27.0-33.4); MEAN CORPUSCULAR HGB CONC 35.7 g/dL (32.0-36.0); MEAN CORPUSCULAR VOLUME 88 fl (80-97); MONOCYTES % (AUTO) 5.8 % (3-13); PLATELET COUNT 265 10^3/uL (150-450); RED BLOOD COUNT 3.86 10^6/uL (3.72-5.28); RED CELL DISTRIBUTION WIDTH 14.7 % (11.5-14.0); SEGMENTED NEUTROPHILS % (AUTO) 64.6 % (42-78); TOTAL CELLS COUNTED % (AUTO) 100 %; WHITE BLOOD COUNT 8.3 10^3/uL (4.0-10.5)
[2018-04-23 01:32] LABS: ANION GAP 8 (5-19); BLOOD UREA NITROGEN 14 mg/dL (7-20); CALCIUM 9.3 mg/dL (8.4-10.2); CARBON DIOXIDE 26 mmol/L (22-30); CHLORIDE 105 mmol/L (98-107); GLUCOSE 95 mg/dL (75-110); POTASSIUM 4.2 mmol/L (3.6-5.0); SODIUM 139.1 mmol/L (137-145)
--- NOTE | 2018-04-23 02:32 | ER Document Report ---
ED General - General Chief Complaint: Probable Seizure Stated Complaint: SOB SEIZURE Time Seen by Provider: 04/23/18 00:24 TRAVEL OUTSIDE OF THE [place] IN LAST 30 DAYS: No - HPI Patient complains to provider of: nausea, headache Onset: Other - 28-year-old female with a recently fractured ankle who presents for evaluation of a seizure and headache for the first time in many months. She notes that since having her fractured ankle she was started on hydrocodone to help deal with the pain, she also was started on tramadol thereafter because they wanted her to space out the hydrocodone. She noted that she was beginning to feel nauseous today and having difficulty drinking as much because of the nausea. Nothing is made it any better, every time she tries to eat something and makes it worse. She denies any fevers or chills any focal numbness or weakness or other symptoms at this time. - Related Data Allergies/Adverse Reactions: haloperidol [From Haldol] Adverse Reaction (Verified 04/09/18 07:27) haloperidol lactate [From Haldol] Adverse Reaction (Verified 04/09/18 07:27) prochlorperazine edisylate [From Compazine] Adverse Reaction (Verified 04/09/18 07:27) prochlorperazine maleate [From Compazine] Adverse Reaction (Verified 04/09/18 07:27) Past Medical History - General Information source: Patient - Social History Smoking Status: Never Smoker Family History: Reviewed & Not Pertinent, CVA, DM, Hypertension, Malignancy Patient has suicidal ideation: No Patient has homicidal ideation: No Neurological Medical History: Reports: Hx Migraine, Hx Seizures - No diagnosed seizure disorder (January 2017) Endocrine Medical History: Denies: Hx Diabetes Mellitus Type 1, Hx Diabetes Mellitus Type 2 Renal/ Medical History: Denies: Hx Peritoneal Dialysis Psychiatric Medical History: Reports: Hx Anxiety Past Surgical History: Reports: Hx Section - x 2 - Immunizations Immunizations up to date: Yes Hx Diphtheria, Pertussis, Tetanus Vaccination: Yes Review of Systems - Review of Systems Constitutional: No symptoms reported EENT: No symptoms reported Cardiovascular: No symptoms reported Gastrointestinal: Abdominal pain, Nausea Genitourinary: No symptoms reported Female Genitourinary: No symptoms reported Musculoskeletal: Muscle pain, Leg swelling Skin: No symptoms reported Hematologic/Lymphatic: No symptoms reported Physical Exam - Vital signs Vitals: Temp Pulse Resp BP Pulse Ox 98.2 F 82 18 109/45 L 99 04/22/18 22:58 04/22/18 22:58 04/22/18 22:58 04/22/18 22:58 04/22/18 22:58 - General General appearance: Appears well, Alert - HEENT Head: Normocephalic Eyes: Normal Conjunctiva: Normal Cornea: Normal Extraocular movements intact: Yes Eyelashes: Normal Pupils: PERRL - Respiratory Respiratory status: No respiratory distress Chest status: Nontender Breath sounds: Normal Chest palpation: Normal - Cardiovascular Rhythm: Regular Heart sounds: Normal auscultation Murmur: No - Abdominal Inspection: Normal Distension: No distension Bowel sounds: Normal Tenderness: Nontender Organomegaly: No organomegaly - Back Back: Normal, Nontender - Extremities General upper extremity: Normal inspection, Nontender, Normal ROM, Normal strength General lower extremity: Other - Cast in the left lower extremity Course - Re-evaluation Re-evalutation: 28-year-old female presents for nausea as well as a seizure. She is currently taking hydrocodone as well as tramadol in the setting of a recently fractured ankle. We will obtain a chemistry and a count will administer Zofran encourage p.o. Following administration of Zofran her nausea improved. I think that likely her seizure as a result of her tramadol use. Gave her a Tylenol to help with her headache. Her chemistry is unremarkable, her CBC is unremarkable. She has a nonfocal neurologic examination and is at her baseline. Believe that she is likely safe for discharge with return precautions and expectant management. She is not believe that she is likely safe. She was instructed to stop taking her tramadol and continue to use the hydrocodone as well as other medications as needed to help with her pain. - Vital Signs Vital signs: Temp Pulse Resp BP Pulse Ox 98.2 F 82 18 109/45 L 99 04/22/18 22:58 04/22/18 22:58 04/22/18 22:58 04/22/18 22:58 04/22/18 22:58 - Laboratory Result Diagrams: 04/23/18 01:10 04/23/18 01:10 Laboratory results interpreted by me: 04/23/18 01:10 Hct 34.1 L RDW 14.7 H Discharge - Discharge Clinical Impression: Seizure Headache Qualifiers: Headache type: unspecified Headache chronicity pattern: unspecified pattern Intractability: not intractable Qualified Code(s): R51 - Headache Nausea & vomiting Qualifiers: Vomiting type: unspecified Vomiting Intractability: unspecified Qualified Code(s): R11.2 - Nausea with vomiting, unspecified Condition: Good Disposition: HOME, SELF-CARE Instructions: Antinausea Medication ([facility]), Intravenous (IV) Fluids ([facility]) Additional Instructions: Your seen today in the emergency department for your seizure as well as her nausea. You had an evaluation including a physical exam, blood tests, and urine test. I think that your nausea may be related to the medications you are taking for your ankle fracture. You been given nausea medication to try and help with this. Make sure you are drinking plenty of water, if you need to start taking a stool softener to ensure that you are having 1 bowel movement every day. Stop taking the tramadol which was prescribed to you. Return in case of worsening fevers or chills. Return in case of worsening seizures. Prescriptions: Ondansetron [Zofran Odt 4 mg Tablet] 1 - 2 tab PO Q4H PRN #15 tab.rapdis PRN Reason: For Nausea/Vomiting Polyethylene Glycol 3350 [Miralax Powder 17 gm/Packet] 1 packet PO DAILY #1 pkg
[2018-04-23] MEDS ORDERED: ACETAMINOPHEN 325 MG TABLET PO ONE (02:41)
[2018-04-23 04:18] VITALS: BP 106/48
== END 2018-04-23 04:18 | disposition home or self-care (01) ==
LOC: ER 22:53
DX: R56.9 Unspecified convulsions (principal); R11.2 Nausea with vomiting, unspecified; R51 Headache
CPT/HCPCS: 99284; 96361; 96374; 36415; 85025; 81025; 80048; J2405; J7030

== ENCOUNTER 2018-04-25 04:51 | Emergency (ER) | payer SELFPAY ==
--- NOTE | 2018-04-25 05:28 | ER Document Report ---
ED Medical Screen (RME) - General Chief Complaint: Shortness Of Breath Stated Complaint: SHORTNESS OF BREATH Information source: Patient Notes: 28-year-old female with a history of seizures presents the emergency department with complaints of lightheadedness, shortness of breath, chest pain status post seizure. Patient has a history of seizures but is not on any medication. Patient states that she was on Depakote 2 months ago but her neurologist stopped it because she was having suicidal ideations, generalized weakness, myalgias. Patient states that she has not been restarted on an antiepileptic. She says that this evening she was in her friend's car when she had a seizure. Her friend told her that she had tonic-clonic movements. Patient states that when she woke up she began having a headache and feels like she had a seizure. She is also complaining of lightheadedness, shortness of breath and chest pain. Patient has a cast on her L ankle for a fracture. I have greeted and performed a rapid initial assessment of this patient. A comprehensive ED assessment and evaluation of the patient, analysis of test results and completion of the medical decision making process will be conducted by additional ED providers. PHYSICAL EXAMINATION: GENERAL: No acute distress. Slow to respond. HEAD: Atraumatic, normocephalic. EYES: Pupils equal round extraocular movements intact, conjunctiva are normal. ENT: Nares patent NECK: Normal range of motion LUNGS: No respiratory distress Musculoskeletal: Normal range of motion NEUROLOGICAL: Normal speech. Normal range of motion. PSYCH: Normal mood, normal affect. SKIN: Warm, Dry, normal turgor, no rashes or lesions noted. TRAVEL OUTSIDE OF THE [place] IN LAST 30 DAYS: No - Related Data Allergies/Adverse Reactions: haloperidol [From Haldol] Adverse Reaction (Verified 04/09/18 07:27) haloperidol lactate [From Haldol] Adverse Reaction (Verified 04/09/18 07:27) prochlorperazine edisylate [From Compazine] Adverse Reaction (Verified 04/09/18 07:27) prochlorperazine maleate [From Compazine] Adverse Reaction (Verified 04/09/18 07:27) Past Medical History - Social History Chew tobacco use (# tins/day): No Frequency of alcohol use: None Drug Abuse: None Family history: Other - anemia Neurological Medical History: Reports: Hx Migraine, Hx Seizures - No diagnosed seizure disorder (January 2017) Endocrine Medical History: Denies: Hx Diabetes Mellitus Type 1, Hx Diabetes Mellitus Type 2 Renal/ Medical History: Denies: Hx Peritoneal Dialysis Psychiatric Medical History: Reports: Hx Anxiety Past Surgical History: Reports: Hx Section - x 2 - Immunizations Immunizations up to date: Yes Hx Diphtheria, Pertussis, Tetanus Vaccination: Yes Physical Exam - Vital signs Vitals: Resp BP Pulse Ox 20 130/73 H 100 04/25/18 05:00 04/25/18 05:00 04/25/18 05:00 Course - Vital Signs Vital signs: Temp Pulse Resp BP Pulse Ox 15 118/77 99 04/25/18 05:01 04/25/18 05:01 04/25/18 05:01
[2018-04-25 05:36] LABS: ABSOLUTE BASOPHILS # (AUTO) 0.1 10^3/uL (0.0-0.2); ABSOLUTE EOSINOPHILS # (AUTO) 0.2 10^3/uL (0.0-0.6); ABSOLUTE MONOCYTES (AUTO) 0.7 10^3/uL (0.1-1.4); ABSOLUTE NEUT (AUTO) 4.5 10^3/uL (1.7-8.2); BASOPHILS % (AUTO) 0.8 % (0-2); EOSINOPHILS % (AUTO) 2.3 % (0-6); HEMATOCRIT 35.1 % (36.0-47.0); HEMOGLOBIN 12.4 g/dL (12.0-15.5); LYMPHOCYTES % (AUTO) 35.5 % (13-45); MEAN CORPUSCULAR HGB CONC 35.3 g/dL (32.0-36.0); MEAN CORPUSCULAR VOLUME 88 fl (80-97); MONOCYTES % (AUTO) 8.4 % (3-13); PLATELET COUNT 277 10^3/uL (150-450); RED CELL DISTRIBUTION WIDTH 14.2 % (11.5-14.0); TOTAL CELLS COUNTED % (AUTO) 100 %; WHITE BLOOD COUNT 8.6 10^3/uL (4.0-10.5)
[2018-04-25 05:48] LABS: ALANINE AMINOTRANSFERASE 14 U/L (9-52); ALBUMIN 4.5 g/dL (3.5-5.0); ALKALINE PHOSPHATASE 47 U/L (38-126); ANION GAP 13 (5-19); ASPARTATE AMINO TRANSFERASE 24 U/L (14-36); BILIRUBIN,DIRECT 0.3 mg/dL (0.0-0.4); BILIRUBIN,TOTAL 0.6 mg/dL (0.2-1.3); BLOOD UREA NITROGEN 11 mg/dL (7-20); CALCIUM 9.7 mg/dL (8.4-10.2); CARBON DIOXIDE 22 mmol/L (22-30); CHLORIDE 105 mmol/L (98-107); GLUCOSE 87 mg/dL (75-110); POTASSIUM 4.2 mmol/L (3.6-5.0); SODIUM 140.2 mmol/L (137-145)
[2018-04-25] MEDS ORDERED: DEXTROSE 5%-LACTATED RINGERS 1,000 ML IV ONE (06:30)
--- NOTE | 2018-04-25 07:06 | RADIOLOGY REPORT (SQ) ---
CLINICAL HISTORY: shortness of breath COMPARISON: None. TECHNIQUE: XR CHEST 1 VIEW 04/25/2018 5:26 AM GENERATION TECHNOLOGIST FINDINGS: Cardiac silhouette is normal in size. Lungs are clear without consolidation, atelectasis, mass or edema. There is no pleural effusion. There is no pneumothorax. There are no acute osseous findings. IMPRESSION: Clear lungs.
--- NOTE | 2018-04-25 08:05 | EKG REPORT ---
SEVERITY:- BORDERLINE ECG - SINUS RHYTHM BORDERLINE T ABNORMALITIES, ANT-LAT LEADS : Confirmed by: Ishmael Price MD 25-Apr-2018 08:04:56
[2018-04-25] MEDS ORDERED: NORMAL SALINE 1000 ML 1,000 ML IV ONE (08:06)
[2018-04-25 08:22] LABS: APPEARANCE,URINE CLEAR; BILIRUBIN,URINE NEGATIVE (NEGATIVE); COLOR,URINE YELLOW; GLUCOSE, URINE >=500 mg/dL (NEGATIVE); KETONES,URINE 20 mg/dL (NEGATIVE); LEUKOCYTE ESTERASE,URINE NEGATIVE (NEGATIVE); NITRITE,URINE NEGATIVE (NEGATIVE); PROTEIN,URINE NEGATIVE (NEGATIVE); URINE SPECIFIC GRAVITY 1.011; UROBILINOGEN,URINE NEGATIVE mg/dL (<2.0)
[2018-04-25 08:36] LABS: URINE AMPHETAMINES SCREEN NEGATIVE; URINE BARBITURATES SCREEN NEGATIVE; URINE BENZODIAZEPINES SCREEN NEGATIVE; URINE COCAINE SCREEN NEGATIVE; URINE MARIJUANA (THC) SCREEN NEGATIVE; URINE METHADONE SCREEN NEGATIVE; URINE PHENCYCLIDINE SCREEN NEGATIVE
[2018-04-25 09:34] VITALS: BP 94/73
--- NOTE | 2018-04-25 14:33 | ER Document Report ---
Entered by HANY ADEN SCRIBE 04/25/18 0704 Acting as scribe for:ELISE NAM MD ED General - General Chief Complaint: Shortness Of Breath Stated Complaint: SHORTNESS OF BREATH Time Seen by Provider: 04/25/18 06:01 Mode of Arrival: Ambulatory Information source: Patient Notes: Patient is a 28 year old female with a reported history of a seizure disorder presents to the emergency department complaining of shortness of breath and dizziness onset last night. Patient states she became really short of breath while sitting down around 2000 last night. She reports having yet to sleep since onset due to feeling very dizzy and short of breath. She states "I am always short of breath, every time I lay down I am dizzy and short of breath". She reports taking an Excedrin last night due to a mild headache. Patient reports being on Depakote 2 months ago but was told to discontinue use due to side effects. She states she has been unable to receive another ant iepileptic until a CT scan of her head is performed and she is currently unable to pay for testing. The history obtained by Dr. Wu is completely different than the history she gave me. None of the complaints she provided to either of us when reviewed in the context of her previous visits, and her physical exam at this time, are concerning or appear to require any intervention. TRAVEL OUTSIDE OF THE [place] IN LAST 30 DAYS: No - Related Data Allergies/Adverse Reactions: haloperidol [From Haldol] Adverse Reaction (Verified 04/09/18 07:27) haloperidol lactate [From Haldol] Adverse Reaction (Verified 04/09/18 07:27) prochlorperazine edisylate [From Compazine] Adverse Reaction (Verified 04/09/18 07:27) prochlorperazine maleate [From Compazine] Adverse Reaction (Verified 04/09/18 07:27) Past Medical History - General Information source: Patient - Social History Smoking Status: Current Some Day Smoker Chew tobacco use (# tins/day): No Frequency of alcohol use: None Drug Abuse: None Family History: Reviewed & Not Pertinent, CVA, DM, Hypertension, Malignancy Patient has suicidal ideation: No Patient has homicidal ideation: No Neurological Medical History: Reports: Hx Migraine, Hx Seizures - No diagnosed seizure disorder (January 2017) Psychiatric Medical History: Reports: Hx Anxiety Past Surgical History: Reports: Hx Section - x 2 - Immunizations Immunizations up to date: Yes Hx Diphtheria, Pertussis, Tetanus Vaccination: Yes Review of Systems - Review of Systems Constitutional: No symptoms reported EENT: No symptoms reported Cardiovascular: See HPI, Dizziness Respiratory: See HPI, Short of breath Gastrointestinal: No symptoms reported Genitourinary: No symptoms reported Female Genitourinary: No symptoms reported Musculoskeletal: No symptoms reported Skin: No symptoms reported Hematologic/Lymphatic: No symptoms reported Neurological/Psychological: No symptoms reported -: Yes All other systems reviewed and negative Physical Exam - Vital signs Vitals: Resp BP Pulse Ox 20 130/73 H 100 04/25/18 05:00 04/25/18 05:00 04/25/18 05:00 - Notes Notes: GENERAL: Alert, appears fatigued. Unable to fully open eyes during exam, although opens eyes during interview. No acute distress. HEAD: Normocephalic, atraumatic. EYES: Pupils equal, round, and reactive to light. Extraocular movements intact. ENT: Oral mucosa moist, tongue midline. NECK: Full range of motion. Supple. Trachea midline. LUNGS: Clear to auscultation bilaterally, no wheezes, rales, or rhonchi. No respiratory distress. HEART: Regular rate and rhythm. No murmurs, gallops, or rubs. ABDOMEN: Soft, non-tender. Non-distended. Bowel sounds present in all 4 quad rants. EXTREMITIES: Moves all 4 extremities spontaneously. Cast on left lower ankle and foot. NEUROLOGICAL: Alert and oriented x3. Normal speech. PSYCH: Normal affect, normal mood. SKIN: Warm, dry, normal turgor. No rashes or lesions noted. Course - Vital Signs Vital signs: Temp Pulse Resp BP Pulse Ox 98 F 75 21 H 94/73 L 100 04/25/18 09:22 04/25/18 06:00 04/25/18 09:22 04/25/18 09:22 04/25/18 09:22 - Laboratory Result Diagrams: 04/25/18 05:01 04/25/18 05:01 Laboratory results interpreted by me: 04/25/18 04/25/18 05:01 07:45 Hct 35.1 L RDW 14.2 H Urine Glucose (UA) >=500 H Urine Ketones 20 H - Diagnostic Test Radiology reviewed: Image reviewed, Reports reviewed - Chest x-ray is unremarkable - EKG Interpretation by Me EKG shows normal: Sinus rhythm, [place], Intervals, QRS Complexes. abnormal: ST-T Waves - Borderline anterolateral T abnormalities Rate: Normal - 67 Rhythm: NSR When compared to previous EKG there are: No significant change Discharge - Discharge Clinical Impression: Shortness of breath, Dizziness, Lightheaded Headache Qualifiers: Headache type: unspecified Headache chronicity pattern: unspecified pattern Intractability: not intractable Qualified Code(s): R51 - Headache Disposition: HOME, SELF-CARE I personally performed the services described in the documentation, reviewed and edited the documentation which was dictated to the scribe in my presence, and it accurately records my words and actions.
== END 2018-04-25 09:33 | disposition home or self-care (01) ==
LOC: ER 04:51
DX: R06.02 Shortness of breath (principal); R42 Dizziness and giddiness; R51 Headache; F17.200 Nicotine dependence, unspecified, uncomplicated
CPT/HCPCS: 93005; 99285; 96360; 96361; 36415; 85025; 81025; 80053; 81001; 84484; 80307; 71045; 93010; J7030

== ENCOUNTER 2018-11-26 21:07 | Emergency (ER) | payer SELFPAY ==
[2018-11-26 22:26] LABS: ABSOLUTE BASOPHILS # (AUTO) 0.1 10^3/uL (0.0-0.2); ABSOLUTE EOSINOPHILS # (AUTO) 0.2 10^3/uL (0.0-0.6); ABSOLUTE LYMPHOCYTES (AUTO) 2.7 10^3/uL (0.5-4.7); ABSOLUTE MONOCYTES (AUTO) 0.7 10^3/uL (0.1-1.4); ABSOLUTE NEUT (AUTO) 4.5 10^3/uL (1.7-8.2); HEMOGLOBIN 11.1 g/dL (12.0-15.5); TOTAL CELLS COUNTED % (AUTO) 100 %
[2018-11-26 22:29] LABS: APPEARANCE,URINE SLIGHTLY-CLOUDY; BILIRUBIN,URINE NEGATIVE (NEGATIVE); COLOR,URINE YELLOW; GLUCOSE, URINE NEGATIVE (NEGATIVE); KETONES,URINE TRACE mg/dL (NEGATIVE); LEUKOCYTE ESTERASE,URINE NEGATIVE (NEGATIVE); NITRITE,URINE NEGATIVE (NEGATIVE); PROTEIN,URINE NEGATIVE (NEGATIVE); URINE SPECIFIC GRAVITY 1.023; UROBILINOGEN,URINE NEGATIVE mg/dL (<2.0)
[2018-11-26 22:31] LABS: BASOPHILS % (AUTO) 0.8 % (0-2); EOSINOPHILS % (AUTO) 1.9 % (0-6); HEMATOCRIT 32.2 % (36.0-47.0); LYMPHOCYTES % (AUTO) 32.9 % (13-45); MEAN CORPUSCULAR HEMOGLOBIN 29.6 pg (27.0-33.4); MEAN CORPUSCULAR HGB CONC 34.5 g/dL (32.0-36.0); MEAN CORPUSCULAR VOLUME 86 fl (80-97); MONOCYTES % (AUTO) 8.7 % (3-13); PLATELET COUNT 233 10^3/uL (150-450); RED BLOOD COUNT 3.75 10^6/uL (3.72-5.28); RED CELL DISTRIBUTION WIDTH 17.3 % (11.5-14.0); SEGMENTED NEUTROPHILS % (AUTO) 55.7 % (42-78); WHITE BLOOD COUNT 8.1 10^3/uL (4.0-10.5)
[2018-11-26 22:39] LABS: ALBUMIN 3.6 g/dL (3.5-5.0); ALKALINE PHOSPHATASE 37 U/L (38-126); ANION GAP 7 (5-19); ASPARTATE AMINO TRANSFERASE 17 U/L (14-36); BILIRUBIN,DIRECT 0.1 mg/dL (0.0-0.4); BILIRUBIN,TOTAL 0.3 mg/dL (0.2-1.3); BLOOD UREA NITROGEN 13 mg/dL (7-20); CALCIUM 8.7 mg/dL (8.4-10.2); CARBON DIOXIDE 25 mmol/L (22-30); CHLORIDE 105 mmol/L (98-107); GLUCOSE 75 mg/dL (75-110); POTASSIUM 4.5 mmol/L (3.6-5.0); TOTAL PROTEIN 6.5 g/dL (6.3-8.2)
--- NOTE | 2018-11-26 22:47 | ER Document Report ---
ED General - General Chief Complaint: Abdominal Pain Stated Complaint: ABDOMINAL PAIN,BLOODY STOOL Information source: Patient TRAVEL OUTSIDE OF THE [place] IN LAST 30 DAYS: No - HPI Patient complains to provider of: left lower abdominal pain with blood mixed with stool Onset: Last week Onset/Duration: Gradual Quality of pain: Cramping Severity: Mild Pain Level: 2 Associated symptoms: denies: None, Allergy/hay fever, Body/muscle aches, Chest pain, Chills, Nonproductive cough, Productive cough, Diarrhea, Drooling, Earache, Fever, Headache, Hoarseness, Hurts to breath, Leg swelling, Nausea, Vomiting, Rhinnorhea, Sinus pain/drainage, Shortness of breath, Slow to respond, Sore throat, Sweating, Weakness, Other Exacerbated by: Denies Relieved by: Denies - Related Data Allergies/Adverse Reactions: haloperidol [From Haldol] Adverse Reaction (Verified 11/26/18 21:10) haloperidol lactate [From Haldol] Adverse Reaction (Verified 11/26/18 21:10) prochlorperazine edisylate [From Compazine] Adverse Reaction (Verified 11/26/18 21:10) prochlorperazine maleate [From Compazine] Adverse Reaction (Verified 11/26/18 21:10) Past Medical History - Social History Smoking Status: Unknown if Ever Smoked Family History: Reviewed & Not Pertinent, CVA, DM, Hypertension, Malignancy Patient has suicidal ideation: No Patient has homicidal ideation: No Neurological Medical History: Reports: Hx Migraine, Hx Seizures - No diagnosed seizure disorder (January 2017) Endocrine Medical History: Denies: Hx Diabetes Mellitus Type 1, Hx Diabetes Mellitus Type 2 Renal/ Medical History: Denies: Hx Peritoneal Dialysis Psychiatric Medical History: Reports: Hx Anxiety Past Surgical History: Reports: Hx Section - x 2 - Immunizations Immunizations up to date: Yes Hx Diphtheria, Pertussis, Tetanus Vaccination: Yes Review of Systems - Review of Systems Constitutional: No symptoms reported Cardiovascular: No symptoms reported Respiratory: No symptoms reported Gastrointestinal: Abdominal pain, Blood streaked bowels Genitourinary: Dysuria, Frequency, Urgency. denies: Discharge Female Genitourinary: denies: No symptoms reported, See HPI, Last menstrual period, , Post menopausal, Heavy/abnormal periods, Irregular period, Vaginal bleeding, Vaginal discharge, Vaginal odor, Painful intercourse, Other -: Yes All other systems reviewed and negative Physical Exam - Vital signs Vitals: Temp Pulse Resp BP Pulse Ox 98 F 68 14 114/66 100 11/26/18 21:10 11/26/18 21:10 11/26/18 21:10 11/26/18 21:10 11/26/18 21:10 Notes: PHYSICAL EXAMINATION: GENERAL: Well-appearing, well-nourished and in no acute distress. HEAD: Atraumatic, normocephalic. EYES: Pupils equal round and reactive to light, extraocular movements intact, sclera anicteric, conjunctiva are normal. ENT: nares patent, oropharynx clear without exudates. Moist mucous membranes. NECK: Normal range of motion, supple without lymphadenopathy LUNGS: Breath sounds clear to auscultation bilaterally and equal. No wheezes rales or rhonchi. HEART: Regular rate and rhythm without murmurs ABDOMEN: Soft, tenderness in R>L lower quad. No guarding, no rebound. No masses appreciated. EXTREMITIES: Normal range of motion, no pitting or edema. No cyanosis. NEUROLOGICAL: No focal neurological deficits. Moves all extremities spontaneously and on command. PSYCH: Normal mood, normal affect. SKIN: Warm, Dry, normal turgor, no rashes or lesions noted. Course - Vital Signs Vital signs: Temp Pulse Resp BP Pulse Ox 98 F 68 14 114/66 100 11/26/18 21:10 11/26/18 21:10 11/26/18 21:10 11/26/18 21:10 11/26/18 21:10 - Laboratory Result Diagrams: 11/26/18 22:10 11/26/18 22:10 Laboratory results interpreted by me: 11/26/18 11/26/18 11/26/18 22:00 22:10 22:10 Hgb 11.1 L Hct 32.2 L RDW 17.3 H Sodium 136.9 L Lactic Acid Alkaline Phosphatase 37 L Urine Ketones TRACE H 11/26/18 22:26 Hgb Hct RDW Sodium Lactic Acid < 0.5 L Alkaline Phosphatase Urine Ketones - Diagnostic Test Radiology reviewed: Pending, Image reviewed, Reports reviewed Discharge - Discharge Clinical Impression: Rectal bleeding, Acute constipation Condition: Good Disposition: HOME, SELF-CARE Instructions: Abdominal Pain ([facility]), Rectal Bleeding, Unclear Cause ([facility]), Constipation ([facility]) Additional Instructions: Increase fiber in diet. Follow up with GI doctor for colonscopy as discussed. return if worse. Prescriptions: Hydrocortisone Acetate [Anusol Hc 25 mg Supp.rect] 1 supp.rect [place] BID #14 supp.rect Docusate Sodium [Colace] 100 mg PO BID PRN #20 capsule PRN Reason:
--- NOTE | 2018-11-27 01:09 | RADIOLOGY REPORT (SQ) ---
CT abdomen and pelvis with contrast on 11/27/2018 at 12:38 AM CLINICAL INDICATION: Burning with urination, lower abdominal pain, left-sided back pain TECHNIQUE: Multiple axial images are obtained throughout the abdomen and pelvis following the administration of IV and oral contrast. This exam was performed according to our departmental dose-optimization program, which includes automated exposure control, adjustment of the mA and/or kV according to patient size and/or use of iterative reconstruction technique. Total DLP is 511.52 mGy*cm. COMPARISON: 07/06/2014 FINDINGS: Abdomen: The lung bases are clear. No definite renal or ureteral stones or hydronephrosis is noted on this unenhanced exam. The solid abdominal organs are unremarkable. There is no abdominal adenopathy. There is no free fluid or free air within the abdomen. Mild increased stool is noted in the colon suggesting mild constipation. The abdominal portion of the GI tract is otherwise unremarkable. Pelvis: There is a simple 2.5 x 1.9 x 2.2 cm dominant follicle in the left ovary which should be considered benign with no follow-up recommended. Pelvic organs otherwise appear unremarkable by CT. There is no pelvic adenopathy. There is no free fluid in the pelvis. Pelvic portion of the GI tract including the appendix is unremarkable. No bony abnormality is noted. IMPRESSION: 1. Mild increased stool in the upper colon suggesting mild constipation. 2. Otherwise no acute abnormality.
[2018-11-27 01:40] VITALS: BP 101/56
== END 2018-11-27 01:43 | disposition home or self-care (01) ==
LOC: ER 21:07
DX: K59.00 Constipation, unspecified (principal); K62.5 Hemorrhage of anus and rectum; R30.0 Dysuria; R35.0 Frequency of micturition; R39.15 Urgency of urination
CPT/HCPCS: 36415; 74177; 80053; 81001; 81025; 83605; 83690; 85025; 99285

== ENCOUNTER 2018-12-10 10:48 | Emergency (ER) | payer SELFPAY ==
--- NOTE | 2018-12-10 11:42 | ER Document Report ---
HPI - HPI Time Seen by Provider: 12/10/18 11:28 Pain Level: Denies Notes: Patient is an otherwise healthy 20-year-old female with concern for possible vaginal infection. She reports she is having an itchy type of discharge. She denies any pain to her pelvic area. She does report some concern for STDs, states that she had chlamydia about 9 months ago and was unaware of it. She denies any recent partners or new partners. She denies any dysuria or urinary frequency. She would like to be tested today for possible STDs as well as urinary tract infection. - REPRODUCTIVE Reproductive: DENIES: : Past Medical History - General Information source: Patient - Social History Smoking Status: Current Every Day Smoker Frequency of alcohol use: Occasional Drug Abuse: None Family History: Reviewed & Not Pertinent, CVA, DM, Hypertension, Malignancy Neurological Medical History: Reports: Hx Migraine, Hx Seizures - No diagnosed seizure disorder (January 2017) Endocrine Medical History: Denies: Hx Diabetes Mellitus Type 1, Hx Diabetes Mellitus Type 2 Renal/ Medical History: Denies: Hx Peritoneal Dialysis Psychiatric Medical History: Reports: Hx Anxiety Past Surgical History: Reports: Hx Section - x 2 - Immunizations Immunizations up to date: Yes Hx Diphtheria, Pertussis, Tetanus Vaccination: Yes Vertical Provider Document - CONSTITUTIONAL Notes: PHYSICAL EXAMINATION: GENERAL: Well-appearing, well-nourished and in no acute distress. HEAD: Atraumatic, normocephalic. EYES: Pupils equal round and reactive to light, extraocular movements intact, conjunctiva are normal. ENT: Nares patent, oropharynx clear without exudates. Moist mucous membranes. NECK: Normal range of motion, supple without lymphadenopathy LUNGS: Breath sounds clear to auscultation bilaterally and equal. No wheezes rales or rhonchi. HEART: Regular rate and rhythm without murmurs ABDOMEN: Soft, nontender, nondistended abdomen. No guarding, no rebound. No masses appreciated. Female : Patient declined pelvic exam Musculoskeletal: Normal range of motion, no pitting or edema. No cyanosis. NEUROLOGICAL: Cranial nerves grossly intact. Normal speech, normal gait. Normal sensory, motor exams PSYCH: Normal mood, normal affect. SKIN: Warm, Dry, normal turgor, no rashes or lesions noted. - INFECTION CONTROL TRAVEL OUTSIDE OF THE [place] IN LAST 30 DAYS: No Course - Re-evaluation Re-evalutation: Well-appearing 28-year-old female with normal vital signs. Patient declined pelvic exam stating that she does not have any abdominal pain or pelvic pain. We allowed her to self swab. We also collected a urine. Urinalysis is unremarkable. Chlamydia gonorrhea testing are pending. Patient does have evidence of bacterial vaginosis on the wet mount. Will start patient on Flagyl for this. Patient was offered prophylactic treatment for both chlamydia and gonorrhea. Patient opted to not to take this as she states that she does not believe they will be positive. Culture nurse will call patient if positive and return for treatment. The patient's emergency department workup and current diagnosis were explained to the patient and or family. Follow-up instructions were provided. Medications if prescribed were discussed. Instructions for when to return to the emergency department including specific worrisome symptoms were discussed with the patient and/or family. - Vital Signs Vital signs: Temp Pulse Resp BP Pulse Ox 98.8 F 69 16 116/60 98 12/10/18 10:59 12/10/18 10:59 12/10/18 10:59 12/10/18 10:59 12/10/18 10:59 Discharge - Discharge Clinical Impression: Bacterial vaginosis Condition: Stable Disposition: HOME, SELF-CARE Additional Instructions: You have an overgrowth of natural vaginal bacteria, called bacterial vaginosis. You are being treated with an antibiotic called metronidazole. Do not drink alcohol while taking this medication. Complete all of the antibiotic even if your symptoms have resolved. Return for abdominal pain, vomiting, fever of greater than 101F, or any other symptoms that are worrisome to you. Please follow-up with your [facility]IST or primary care doctor as needed. The chlamydia and gonorrhea testing are still pending we will call you if they are abnormal so that you can come back for treatment. Prescriptions: Metronidazole [Flagyl 500 mg Tablet] 500 mg PO BID #14 tablet
[2018-12-10 11:54] LABS: APPEARANCE,URINE CLEAR; BILIRUBIN,URINE NEGATIVE (NEGATIVE); COLOR,URINE YELLOW; GLUCOSE, URINE NEGATIVE (NEGATIVE); KETONES,URINE NEGATIVE (NEGATIVE); LEUKOCYTE ESTERASE,URINE NEGATIVE (NEGATIVE); NITRITE,URINE NEGATIVE (NEGATIVE); PROTEIN,URINE NEGATIVE (NEGATIVE); URINE SPECIFIC GRAVITY 1.021; UROBILINOGEN,URINE NEGATIVE mg/dL (<2.0)
[2018-12-10 11:56] LABS: BACTERIA (WET MOUNT) 3+ BACTERIA SEEN; RBCS (WET MOUNT) 4+ RBCS SEEN; T.VAGINALIS (WET MOUNT) NO TRICHOMONAS SEEN; WBCS (WET MOUNT) 3+ WBCS SEEN; YEAST (WET MOUNT) NO YEAST SEEN
[2018-12-10 12:24] VITALS: BP 120/70
[2018-12-10 13:15] LABS: CHLAM PCR NOT DETECTED (NOT DETECT)
== END 2018-12-10 12:24 | disposition home or self-care (01) ==
LOC: ER 10:48
DX: N76.0 Acute vaginitis (principal); B96.89 Other specified bacterial agents as the cause of diseases classified elsewhere; F17.200 Nicotine dependence, unspecified, uncomplicated
CPT/HCPCS: 81001; 87086; 87088; 87210; 87491; 87591; 99283

== ENCOUNTER 2018-12-14 17:08 | Emergency (ER) | payer SELFPAY ==
[2018-12-14 18:06] VITALS: BP 94/56
--- NOTE | 2018-12-14 18:21 | ER Document Report ---
HPI - HPI Patient complains to provider of: headache Time Seen by Provider: 12/14/18 18:15 Onset: This afternoon Onset/Duration: Sudden Quality of pain: Achy Severity: Moderate Pain Level: 3 Context: This 28-year-old female presents emergency department with complaints of headache that started today. Reports she has history of migraine headaches. She reports that she is slept some and is now feeling better. Reports the light does bother her head but no other symptoms such as fever vomiting diarrhea. Patient is alert and oriented no distress. She also brought her son and to have his right leg looked at. Associated Symptoms: None Exacerbated by: Other - light Relieved by: Denies Similar symptoms previously: Yes Recently seen / treated by doctor: No - REPRODUCTIVE Reproductive: DENIES: : Past Medical History - General Information source: Patient Last Menstrual Period: just finished - Social History Smoking Status: Unknown if Ever Smoked Cigarette use (# per day): No Frequency of alcohol use: None Drug Abuse: None Lives with: Family Family History: Reviewed & Not Pertinent, CVA, DM, Hypertension, Malignancy Patient has suicidal ideation: No Patient has homicidal ideation: No Neurological Medical History: Reports: Hx Migraine, Hx Seizures - No diagnosed seizure disorder (January 2017) Endocrine Medical History: Denies: Hx Diabetes Mellitus Type 1, Hx Diabetes Mellitus Type 2 Renal/ Medical History: Denies: Hx Peritoneal Dialysis Psychiatric Medical History: Reports: Hx Anxiety Past Surgical History: Reports: Hx Section - x 2, Hx Tubal Ligation - Immunizations Immunizations up to date: Yes Hx Diphtheria, Pertussis, Tetanus Vaccination: Yes Vertical Provider Document - CONSTITUTIONAL Agree With Documented VS: Yes Exam Limitations: No Limitations General Appearance: WD/WN, No Apparent Distress - INFECTION CONTROL TRAVEL OUTSIDE OF THE [place] IN LAST 30 DAYS: No - HEENT HEENT: Atraumatic, Normal ENT Exam, Normocephalic, PERRLA. negative: Conjuctival Injection, Pharyngeal Exudate, Pharyngeal Erythema - NECK Neck: Normal Inspection, Supple. negative: Lymphadenopathy-Left, Lymphadenopathy-Right - RESPIRATORY Respiratory: Breath Sounds Normal, No Respiratory Distress - CARDIOVASCULAR Cardiovascular: Regular Rate, Regular Rhythm - GI/ABDOMEN Gastrointestinal: Abdomen Soft, Abdomen Non-Tender - MUSCULOSKELETAL/EXTREMETIES Musculoskeletal/Extremeties: MAEW, FROM, Non-Tender - NEURO Level of Consciousness: Awake, Alert, Appropriate Motor/Sensory: No Motor Deficit - DERM Integumentary: Warm, Dry, No Rash Course - Re-evaluation Re-evalutation: 12/14/18 18:28 Patient presents emergency department with complaints of headache with history of migraine headaches. Patient reports she is feeling better. She reports she is ready to go home declines further treatment. Her speech is clear she is alert and oriented answers all questions appropriately no obvious neuro deficits . Reports she feels better. Reports she just needs to go home sleep in a dark room. Patient instructed to follow-up with her primary care provider within 1 week for recheck return for concerns she verbalized understanding to all instructions. Dictation of this chart was performed using voice recognition software; therefore, there may be some unintended grammatical errors. 12/14/18 18:29 - Vital Signs Vital signs: Temp Pulse Resp BP Pulse Ox 98.4 F 64 16 94/56 L 97 12/14/18 18:05 12/14/18 18:05 12/14/18 18:05 12/14/18 18:05 12/14/18 18:05 Discharge - Discharge Clinical Impression: Headache Qualifiers: Headache type: unspecified Headache chronicity pattern: unspecified pattern Intractability: not intractable Qualified Code(s): R51 - Headache Condition: Stable Disposition: HOME, SELF-CARE Instructions: Acetaminophen, Use of [id number] Ibuprofen ([facility]), Migraine Headache ([facility]) Additional Instructions: *You have been evaluated for a headache with history of migraines. *Increase fluid intake Rest *Take your medication as prescribed *Take Tylenol or Motrin as indicated *Follow up with a primary care provider in 1 week for recheck *Return to ED for worsening condition, changes, needs
== END 2018-12-14 18:24 | disposition home or self-care (01) ==
LOC: ER 17:08
DX: R51 Headache (principal); Z86.69 Personal history of other diseases of the nervous system and sense organs
CPT/HCPCS: 99283

== ENCOUNTER 2019-01-23 15:30 | Emergency (ER) | payer SELFPAY ==
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
[2019-01-23 16:22] LABS: ABSOLUTE BASOPHILS # (AUTO) 0.1 10^3/uL (0.0-0.2); ABSOLUTE EOSINOPHILS # (AUTO) 0.2 10^3/uL (0.0-0.6); ABSOLUTE LYMPHOCYTES (AUTO) 2.5 10^3/uL (0.5-4.7); ABSOLUTE MONOCYTES (AUTO) 0.6 10^3/uL (0.1-1.4); ABSOLUTE NEUT (AUTO) 3.7 10^3/uL (1.7-8.2); BASOPHILS % (AUTO) 0.8 % (0-2); EOSINOPHILS % (AUTO) 2.7 % (0-6); HEMATOCRIT 35.3 % (36.0-47.0); MEAN CORPUSCULAR HEMOGLOBIN 29.8 pg (27.0-33.4); MEAN CORPUSCULAR HGB CONC 34.1 g/dL (32.0-36.0); MEAN CORPUSCULAR VOLUME 88 fl (80-97); MONOCYTES % (AUTO) 8.4 % (3-13); PLATELET COUNT 278 10^3/uL (150-450); RED BLOOD COUNT 4.04 10^6/uL (3.72-5.28); RED CELL DISTRIBUTION WIDTH 17.7 % (11.5-14.0); SEGMENTED NEUTROPHILS % (AUTO) 53.1 % (42-78); TOTAL CELLS COUNTED % (AUTO) 100 %; WHITE BLOOD COUNT 7.1 10^3/uL (4.0-10.5)
[2019-01-23 16:24] LABS: APPEARANCE,URINE CLEAR; BILIRUBIN,URINE NEGATIVE (NEGATIVE); COLOR,URINE YELLOW; GLUCOSE, URINE NEGATIVE (NEGATIVE); KETONES,URINE NEGATIVE (NEGATIVE); PROTEIN,URINE NEGATIVE (NEGATIVE); URINE SPECIFIC GRAVITY 1.023; UROBILINOGEN,URINE NEGATIVE mg/dL (<2.0)
[2019-01-23 16:41] LABS: ALKALINE PHOSPHATASE 36 U/L (38-126); ANION GAP 7 (5-19); ASPARTATE AMINO TRANSFERASE 18 U/L (14-36); BILIRUBIN,DIRECT 0.1 mg/dL (0.0-0.4); BILIRUBIN,TOTAL 0.3 mg/dL (0.2-1.3); BLOOD UREA NITROGEN 10 mg/dL (7-20); CALCIUM 9.1 mg/dL (8.4-10.2); CARBON DIOXIDE 27 mmol/L (22-30); CHLORIDE 106 mmol/L (98-107); GLUCOSE 78 mg/dL (75-110); POTASSIUM 4.6 mmol/L (3.6-5.0); TOTAL PROTEIN 7.4 g/dL (6.3-8.2)
--- NOTE | 2019-01-23 19:01 | ER Document Report ---
ED General - General Chief Complaint: Urinary Problem Stated Complaint: URINATING Time Seen by Provider: 01/23/19 15:57 Primary Care Provider: [facility] [Provider Group] - Follow up as needed Mode of Arrival: Ambulatory TRAVEL OUTSIDE OF THE [place] IN LAST 30 DAYS: No - HPI Notes: 28-year-old female presents with dysuria and vaginal irritation that is ongoing for 2 months. Patient was seen in this ER in November for same was diagnosed with bacterial vaginosis. Patient states she finished her course of Flagyl with improvement in symptoms for a few days. Patient denies any changes with the symptoms during these past 2 months. 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 She denies nausea, vomiting, fever, chills, diarrhea, constipation, flank pain, low back pain. She denies abdominal pain - Related Data Allergies/Adverse Reactions: haloperidol [From Haldol] Adverse Reaction (Verified 12/14/18 18:17) haloperidol lactate [From Haldol] Adverse Reaction (Verified 12/14/18 18:17) prochlorperazine edisylate [From Compazine] Adverse Reaction (Verified 12/14/18 18:17) prochlorperazine maleate [From Compazine] Adverse Reaction (Verified 12/14/18 18:17) Past Medical History - General Information source: Patient - Social History Smoking Status: Never Smoker Chew tobacco use (# tins/day): No Frequency of alcohol use: Rare Drug Abuse: None Family History: Reviewed & Not Pertinent, CVA, DM, Hypertension, Malignancy Patient has suicidal ideation: No Patient has homicidal ideation: No Neurological Medical History: Reports: Hx Migraine, Hx Seizures - No diagnosed seizure disorder (January 2017) Endocrine Medical History: Denies: Hx Diabetes Mellitus Type 1, Hx Diabetes Mellitus Type 2 Renal/ Medical History: Denies: Hx Peritoneal Dialysis Psychiatric Medical History: Reports: Hx Anxiety Past Surgical History: Reports: Hx Section - x 2, Hx Tubal Ligation - Immunizations Immunizations up to date: Yes Hx Diphtheria, Pertussis, Tetanus Vaccination: Yes Review of Systems - Review of Systems -: Yes All other systems reviewed and negative Physical Exam - Vital signs Vitals: Temp Pulse Resp BP Pulse Ox 98.0 F 70 12 120/60 100 01/23/19 15:45 01/23/19 15:45 01/23/19 15:45 01/23/19 15:45 01/23/19 15:45 - Notes Notes: PHYSICAL EXAMINATION: GENERAL: Well-appearing, well-nourished and in no acute distress. HEAD: Atraumatic, normocephalic. EYES: Extraocular movements intact, conjunctiva are normal. NECK: Normal range of motion, supple without lymphadenopathy LUNGS: Breath sounds clear to auscultation bilaterally and equal. No wheezes rales or rhonchi. HEART: Regular rate and rhythm without murmurs ABDOMEN: Soft, nontender, nondistended abdomen. No guarding, no rebound. No masses appreciated. CVA tenderness negative bilaterally. Female : PT DECLINED, PT ELECTED TO SELF SWAB Musculoskeletal: FROM to passive/active. Extremities: No cyanosis/clubbing/edema b/l. NEUROLOGICAL: Cranial nerves grossly intact. Normal speech, normal gait. PSYCH: Normal mood, normal affect. SKIN: Warm, Dry, normal turgor, no rashes or lesions noted. Course - Re-evaluation Re-evalutation: 01/23/19 Patient is an afebrile, well-hydrated, 28-year-old female who presents to the ED with vaginal discharge and urinary symptoms. Vitals are acceptable without any significant tachycardia, tachypnea, or hypoxia. PE is otherwise unremarkable. Urinalysis and hCG are unremarkable for any acute pathology. Wet mount results pending. Chlam/gonorrhea tests are pending. Pt's symptoms similar to when she was diagnosed with BV in 11/2018 in this ER. Patient is nontoxic-appearing is t olerating p.o. without any difficulties. Labwork otherwise unremarkable. Low suspicion/risk for acute appendicitis, bowel obstruction, acute cholecystitis, acute cholangitis, perforated diverticulitis, incarcerated hernia, pancreatitis, perforated ulcer, peritonitis, sepsis, pelvic inflammatory disease, ectopic , tubo-ovarian abscess, ovarian torsion, or other systemic emergent condition at this time. Patient is aware that her condition can change from initial presentation and she needs to monitor symptoms closely and seek medical attention if any acute changes. Pt prophylactically treated for gonorrhea/chlamydia. I will send her home with prescription for Flagyl. Pt refusing to stay for wet mount results. Conservative measures otherwise for symptoms. Recheck with your PCM/OBGYN in 3-5 days. Return to the ED with any worsening/concerning symptoms otherwise as reviewed in discharge. Patient is in agreement. - Vital Signs Vital signs: Temp Pulse Resp BP Pulse Ox 98.0 F 70 12 120/60 100 01/23/19 15:45 01/23/19 15:45 01/23/19 15:45 01/23/19 15:45 01/23/19 15:45 - Laboratory Result Diagrams: 01/23/19 15:55 01/23/19 15:55 Laboratory results interpreted by me: 01/23/19 01/23/19 01/23/19 15:55 15:55 15:55 Hct 35.3 L RDW 17.7 H Alkaline Phosphatase 36 L Leukocyte Esterase Rfl TRACE H Discharge - Discharge Clinical Impression: Vaginal discharge Condition: Stable Disposition: HOME, SELF-CARE Additional Instructions: Maintain fluid intake Proper hygienic technique Keep the skin clean Safe sexual practices with condoms everytime Tylenol/ibuprofen as needed Check in with the health department this week for further testing if warranted You were treated for gonorrhea/chlamydia today Your chlamydia/gonorrhea tests are pending and you will be notified if positive results; you may call in 1 day for the results as well F/u with your PCM/OBGYN in 3-5 days for a recheck Return to the ED with any development of DC/fever, trouble with vision, eye redness, worsening pain, urethral discharge, urinary retention, blood in the urine, flank pain, abdominal pain, n/v, Chest Pain, shortness of breath, joint pains, trouble breathing, or any other worsening/concerning symptoms as needed otherwise. Prescriptions: Metronidazole [Flagyl 500 mg Tablet] 500 mg PO BID #14 tablet Referrals: [facility] [Provider Group] - Follow up as needed
[2019-01-23] MEDS ORDERED: CEFTRIAXONE INJ 250 MG VIAL IM ONE (19:45)
[2019-01-23] MEDS ORDERED: AZITHROMYCIN 250 MG TABLET PO ONE (19:45)
[2019-01-23 19:47] LABS: BACTERIA (WET MOUNT) 4+ BACTERIA SEEN; EPITHELIALS (WET MOUNT) 4+ EPITHELIALS SEEN; T.VAGINALIS (WET MOUNT) NO TRICHOMONAS SEEN; WBCS (WET MOUNT) 1+ WBCS SEEN; YEAST (WET MOUNT) NO YEAST SEEN
[2019-01-23] MEDS: LIDOCAINE 2% INJ-PF (20 MG/ML) 10 ML AMPUL INJ ONE ×2 (20:05→20:21)
[2019-01-23 20:06] VITALS: BP 115/83
[2019-01-23] MEDS ORDERED: LIDOCAINE 1% INJ-PF (10 MG/ML) 30 ML SDV ONE (20:09)
== END 2019-01-23 20:30 | disposition home or self-care (01) ==
LOC: ER 15:30
DX: N89.8 Other specified noninflammatory disorders of vagina (principal); R30.0 Dysuria
CPT/HCPCS: 99283; 96372; 36415; 87086; 87210; 84703; 85025; 80053; 81001; J3490; J0696

== ENCOUNTER 2019-02-18 17:47 | Emergency (ER) | payer SELFPAY ==
[2019-02-18] MEDS ORDERED: ACETAMINOPHEN 325 MG TABLET PO ONE (17:57)
[2019-02-18] MEDS ORDERED: ONDANSETRON HCL INJ/PF 4 MG/2 ML SDV IV ONE (17:57)
[2019-02-18] MEDS ORDERED: NORMAL SALINE 1000 ML 1,000 ML IV ONE (17:57)
--- NOTE | 2019-02-18 17:58 | ER Document Report ---
ED Medical Screen (RME) - General Chief Complaint: General Weakness Stated Complaint: WEAKNESS Time Seen by Provider: 02/18/19 17:53 Mode of Arrival: Ambulatory Information source: Patient Notes: Patient presents complaining of vaginal itching, vaginal pain and generalized weakness. Patient states she feels faint as though she may pass out. Patient also complains of nausea. No vomiting diarrhea, no fever. Patient does complain of headache as well. I have greeted and performed a rapid initial assessment of this patient. A comprehensive ED assessment and evaluation of the patient, analysis of test results and completion of the medical decision making process will be conducted by additional ED providers. TRAVEL OUTSIDE OF THE [place] IN LAST 30 DAYS: No - Related Data Allergies/Adverse Reactions: haloperidol [From Haldol] Adverse Reaction (Verified 02/18/19 17:52) haloperidol lactate [From Haldol] Adverse Reaction (Verified 02/18/19 17:52) prochlorperazine edisylate [From Compazine] Adverse Reaction (Verified 02/18/19 17:52) prochlorperazine maleate [From Compazine] Adverse Reaction (Verified 02/18/19 1 7:52) Past Medical History - Social History Family history: Other - anemia Neurological Medical History: Reports: Hx Migraine, Hx Seizures - No diagnosed seizure disorder (January 2017) Endocrine Medical History: Denies: Hx Diabetes Mellitus Type 1, Hx Diabetes Mellitus Type 2 Renal/ Medical History: Denies: Hx Peritoneal Dialysis Psychiatric Medical History: Reports: Hx Anxiety Past Surgical History: Reports: Hx Section - x 2, Hx Tubal Ligation - Immunizations Immunizations up to date: Yes Hx Diphtheria, Pertussis, Tetanus Vaccination: Yes Physical Exam - Vital signs Vitals: Temp Pulse Resp BP Pulse Ox 97.7 F 72 20 111/59 L 100 02/18/19 17:52 02/18/19 17:52 02/18/19 17:52 02/18/19 17:52 02/18/19 17:52 - Cardiovascular Rhythm: Regular Heart sounds: S1 appreciated, S2 appreciated - Neurological Orientation: AAOx4 Jeimy Coma Scale Eye Opening: Spontaneous [place] Coma Scale Verbal: Oriented [place] Coma Scale Motor: Obeys Commands Jeimy Coma Scale Total: 15 Course - Vital Signs Vital signs: Temp Pulse Resp BP Pulse Ox 97.7 F 72 20 111/59 L 100 02/18/19 17:52 02/18/19 17:52 02/18/19 17:52 02/18/19 17:52 02/18/19 17:52
[2019-02-18 18:46] LABS: ABSOLUTE EOSINOPHILS # (AUTO) 0.3 10^3/uL (0.0-0.6); ABSOLUTE LYMPHOCYTES (AUTO) 2.3 10^3/uL (0.5-4.7); ABSOLUTE MONOCYTES (AUTO) 0.5 10^3/uL (0.1-1.4); ABSOLUTE NEUT (AUTO) 3.8 10^3/uL (1.7-8.2); BASOPHILS % (AUTO) 0.7 % (0-2); EOSINOPHILS % (AUTO) 3.9 % (0-6); HEMATOCRIT 34.8 % (36.0-47.0); LYMPHOCYTES % (AUTO) 33.1 % (13-45); MEAN CORPUSCULAR HEMOGLOBIN 29.7 pg (27.0-33.4); MEAN CORPUSCULAR HGB CONC 34.5 g/dL (32.0-36.0); MEAN CORPUSCULAR VOLUME 86 fl (80-97); MONOCYTES % (AUTO) 6.6 % (3-13); PLATELET COUNT 238 10^3/uL (150-450); RED BLOOD COUNT 4.04 10^6/uL (3.72-5.28); RED CELL DISTRIBUTION WIDTH 17.6 % (11.5-14.0); SEGMENTED NEUTROPHILS % (AUTO) 55.7 % (42-78); TOTAL CELLS COUNTED % (AUTO) 100 %; WHITE BLOOD COUNT 6.8 10^3/uL (4.0-10.5)
[2019-02-18 18:49] LABS: APPEARANCE,URINE SLIGHTLY-CLOUDY; BILIRUBIN,URINE NEGATIVE (NEGATIVE); COLOR,URINE YELLOW; GLUCOSE, URINE NEGATIVE (NEGATIVE); KETONES,URINE NEGATIVE (NEGATIVE); LEUKOCYTE ESTERASE,URINE NEGATIVE (NEGATIVE); NITRITE,URINE NEGATIVE (NEGATIVE); PROTEIN,URINE NEGATIVE (NEGATIVE); URINE SPECIFIC GRAVITY 1.024; UROBILINOGEN,URINE NEGATIVE mg/dL (<2.0)
[2019-02-18 19:03] LABS: ALBUMIN 4.2 g/dL (3.5-5.0); ALKALINE PHOSPHATASE 39 U/L (38-126); ANION GAP 7 (5-19); ASPARTATE AMINO TRANSFERASE 20 U/L (14-36); BILIRUBIN,DIRECT 0.1 mg/dL (0.0-0.4); BILIRUBIN,TOTAL 0.3 mg/dL (0.2-1.3); BLOOD UREA NITROGEN 11 mg/dL (7-20); CALCIUM 9.2 mg/dL (8.4-10.2); CARBON DIOXIDE 29 mmol/L (22-30); CHLORIDE 105 mmol/L (98-107); GLUCOSE 98 mg/dL (75-110); POTASSIUM 4.3 mmol/L (3.6-5.0); TOTAL PROTEIN 7.5 g/dL (6.3-8.2)
--- NOTE | 2019-02-18 19:12 | ER Document Report ---
ED General - General Chief Complaint: Weakness Stated Complaint: WEAKNESS Time Seen by Provider: 02/18/19 17:53 Mode of Arrival: Ambulatory TRAVEL OUTSIDE OF THE [place] IN LAST 30 DAYS: No - HPI Notes: Ms. Pennington is a 28-year-old female with a history of long-standing seizure disorder for which she takes an unknown dose of Depakote now presenting with "odd feelings" today and the suspicion that she may be getting ready to have a seizure. She denies sleep deprivation. She says she is compliant with her medication. She denies nausea vomiting or fever. Denies consumption of alcohol or use of illicit drugs. Last menses 2 weeks ago described as normal. Patient also has a history of migraine headaches. She denies headache today. Review of past records here shows that this patient is a very frequent visitor to the emergency department for a wide array of complaints. - Related Data Allergies/Adverse Reactions: haloperidol [From Haldol] Adverse Reaction (Verified 02/18/19 17:52) haloperidol lactate [From Haldol] Adverse Reaction (Verified 02/18/19 17:52) prochlorperazine edisylate [From Compazine] Adverse Reaction (Verified 02/18/19 17:52) prochlorperazine maleate [From Compazine] Adverse Reaction (Verified 02/18/19 17:52) Home Medications: depakote, melatonin, excedrin Past Medical History - General Information source: Patient - Social History Smoking Status: Never Smoker Chew tobacco use (# tins/day): No Frequency of alcohol use: None Family History: Reviewed & Not Pertinent, CVA, DM, Hypertension, Malignancy Patient has suicidal ideation: No Patient has homicidal ideation: No Neurological Medical History: Reports: Hx Migraine, Hx Seizures - No diagnosed seizure disorder (January 2017) Endocrine Medical History: Denies: Hx Diabetes Mellitus Type 1, Hx Diabetes Mellitus Type 2 Renal/ Medical History: Denies: Hx Peritoneal Dialysis Psychiatric Medical History: Reports: Hx Anxiety Past Surgical History: Reports: Hx Section - x 2, Hx Tubal Ligation - Immunizations Immunizations up to date: Yes Hx Diphtheria, Pertussis, Tetanus Vaccination: Yes Review of Systems - Review of Systems Notes: Constitutional: Negative for fever. HENT: Negative for sore throat. Eyes: Negative for visual changes. Cardiovascular: Negative for chest pain. Respiratory: Negative for shortness of breath. Gastrointestinal: Negative for abdominal pain, vomiting or diarrhea. Genitourinary: Negative for dysuria. Musculoskeletal: Negative for back pain. Skin: Negative for rash. Neurological: Negative for headaches, weakness or numbness. 10 point ROS negative except as marked above and in HPI. Physical Exam - Vital signs Vitals: Temp Pulse Resp BP Pulse Ox 97.7 F 72 20 111/59 L 100 02/18/19 17:52 02/18/19 17:52 02/18/19 17:52 02/18/19 17:52 02/18/19 17:52 - Notes Notes: GENERAL: Well-developed well-nourished appearing in no acute distress. SKIN: Good turgor no rashes. HEAD: Normocephalic atraumatic. EYES: PERRLA. Conjunctivae and sclerae clear. EARS: CANALS AND TMS CLEAR. NOSE: CLEAR. MOUTH: Moist mucosa. Good dentition. No stridor or edema. No drooling. NECK: Supple. No masses or thyromegaly. No adenopathy. Carotids 2+ without b ruits. No JVD. BACK: Symmetrical without tenderness. CHEST: Anterior chest wall tenderness is present respirations unlabored. Breath sounds clear and symmetrical. HEART: Regular rhythm. No murmur gallop or rub. ABDOMEN: Soft nontender without masses, organomegaly or rebound. Bowel sounds normally active. No bruits. GENITALIA: Deferred. EXTREMITIES: No edema. No calf tenderness. Cap refill less than 1.5 seconds. Dorsalis pedis and posterior tibial pulses 3+ and symmetrical. NEUROLOGICAL: GCS 15. Alert and oriented x3. Normal gait. Fluent speech. Cranial nerves II through XII intact. Sensorimotor and cerebellar normal. Normal tone. Course - Re-evaluation Re-evalutation: 02/18/19 19:13 Physical exam here today is normal and patient's vital signs are stable. She is not vomiting. I am going to check a Depakote level CBC and chemistry profile. Anticipate outpatient management unless some other abnormalities found. 02/18/19 20:00 Patient CBC and comprehensive metabolic profile were unremarkable. test is negative. Urinalysis is clear. GC chlamydia serology remain pending at this time and I made her aware of this. She feels much better after some IV fluids here. Her valproate level was therapeutic. I think she stable for outpatient follow-up with primary care provider or neurologist at this time. - Vital Signs Vital signs: Temp Pulse Resp BP Pulse Ox 97.7 F 72 20 111/59 L 100 02/18/19 17:52 02/18/19 17:52 02/18/19 17:52 02/18/19 17:52 02/18/19 17:52 - Laboratory Result Diagrams: 02/18/19 18:13 02/18/19 18:13 Laboratory results interpreted by me: 02/18/19 18:13 Hct 34.8 L RDW 17.6 H - EKG Interpretation by Me EKG shows normal: Sinus rhythm, [place] Rate: Normal Discharge - Discharge Clinical Impression: Weakness, Seizure disorder Condition: Stable Disposition: HOME, SELF-CARE Additional Instructions: Return here as needed for new or worsening symptoms. Follow-up with referral physician. Prescriptions: Sulfanilamide [Avc] 120 gm VG DAILY 10 Days #1 [email or web address] Referrals: [facility] [Provider Group] - Follow up as needed
[2019-02-18 20:21] VITALS: BP 106/69
[2019-02-18 20:33] LABS: CHLAM PCR NOT DETECTED (NOT DETECT)
--- NOTE | 2019-02-18 23:42 | EKG REPORT ---
SEVERITY:- NORMAL ECG - SINUS RHYTHM : Confirmed by: Rajani Tamez 18-Feb-2019 23:41:50
== END 2019-02-18 20:21 | disposition home or self-care (01) ==
LOC: ER 17:47
DX: R53.1 Weakness (principal); G40.909 Epilepsy, unspecified, not intractable, without status epilepticus; Z79.899 Other long term (current) drug therapy; R09.89 Other specified symptoms and signs involving the circulatory and respiratory systems
CPT/HCPCS: 93005; 99284; 96361; 96374; 36415; 84703; 85025; 80053; 81001; 80164; 87491; 87591; 93010; J2405; J7030

== ENCOUNTER 2019-03-26 16:06 | Emergency (ER) | payer SELFPAY ==
[2019-03-26] MEDS ORDERED: NORMAL SALINE 1000 ML 1,000 ML IV ONE (16:20)
[2019-03-26] MEDS ORDERED: LEVETIRACETAM 500 MG/NACL-ISO 500 MG/100 ML RTUPB IV ONE (16:20)
--- NOTE | 2019-03-26 16:25 | ER Document Report ---
ED Medical Screen (RME) - General Chief Complaint: Breathing Difficulty Stated Complaint: DIFFICULTY BREATHING/POST SIZURE Time Seen by Provider: 03/26/19 16:15 TRAVEL OUTSIDE OF THE [place] IN LAST 30 DAYS: No - HPI Notes: 03/26/19 16:23 Patient is a 29-year-old female with a history of seizures and migraines who presents complaining of having a cough for the past week and starting to feel short of breath just prior to arrival. When she is being brought to the ED she was reported to have a seizure in the car which lasted for a minute. She did not remain postictal and is back to baseline thereafter. Witness stated that her eyes rolled up and she had some shaking involved. She is not currently on medicine for her seizures because she could not afford it. She was recently on Depakote. No fever. I have treated and performed a rapid initial assessment of this patient. A comprehensive ED assessment and evaluation of the patient, analysis of test results and completion of medical decision making process will be conducted by additional ED providers. PHYSICAL EXAMINATION: GENERAL: Well-appearing, well-nourished and in no acute distress. A&Ox4. Answers questions appropriately. Neuro: Cranial nerves grossly intact. GCS 15. Lungs: Grossly CTAB. No retractions. Harsh dry cough audible. - Related Data Allergies/Adverse Reactions: haloperidol [From Haldol] Adverse Reaction (Verified 02/18/19 17:52) haloperidol lactate [From Haldol] Adverse Reaction (Verified 02/18/19 17:52) prochlorperazine edisylate [From Compazine] Adverse Reaction (Verified 02/18/19 17:52) prochlorperazine maleate [From Compazine] Adverse Reaction (Verified 02/18/19 17:52) Past Medical History - Social History Family history: Other - anemia Neurological Medical History: Reports: Hx Migraine, Hx Seizures - No diagnosed seizure disorder (January 2017) Endocrine Medical History: Denies: Hx Diabetes Mellitus Type 1, Hx Diabetes Mellitus Type 2 Renal/ Medical History: Denies: Hx Peritoneal Dialysis Psychiatric Medical History: Reports: Hx Anxiety Past Surgical History: Reports: Hx Section - x 2, Hx Tubal Ligation - Immunizations Immunizations up to date: Yes Hx Diphtheria, Pertussis, Tetanus Vaccination: Yes Physical Exam - Vital signs Vitals: Temp Pulse Resp BP Pulse Ox 98.0 F 98 20 115/77 100 03/26/19 16:12 03/26/19 16:12 03/26/19 16:12 03/26/19 16:12 03/26/19 16:12 Course - Vital Signs Vital signs: Temp Pulse Resp BP Pulse Ox 98.0 F 98 20 115/77 100 03/26/19 16:12 03/26/19 16:12 03/26/19 16:12 03/26/19 16:12 03/26/19 16:12
--- NOTE | 2019-03-26 17:07 | RADIOLOGY REPORT (SQ) ---
EXAM DESCRIPTION: CHEST 2 VIEWS COMPLETED DATE/TIME: 03/26/2019 4:36 pm REASON FOR STUDY: cough COMPARISON: 04/25/2018 TECHNIQUE: Frontal and lateral radiographic views of the chest acquired. NUMBER OF VIEWS: Two view. LIMITATIONS: None. FINDINGS: LUNGS AND PLEURA: No pneumothorax. No consolidation or pleural effusion. MEDIASTINUM AND HILAR STRUCTURES: Stable. HEART AND VASCULAR STRUCTURES: Stable. BONES: No acute findings. HARDWARE: None in the chest. OTHER: No other significant finding. IMPRESSION: NO ACUTE FINDINGS. TECHNICAL DOCUMENTATION: JOB ID: [id number] [place]-72 2010 [employer]- All Rights Reserved Reading location - IP/workstation name: [email or web address]
[2019-03-26 17:13] LABS: ABSOLUTE EOSINOPHILS # (AUTO) 0.2 10^3/uL (0.0-0.6); ABSOLUTE LYMPHOCYTES (AUTO) 2.4 10^3/uL (0.5-4.7); ABSOLUTE MONOCYTES (AUTO) 0.4 10^3/uL (0.1-1.4); ABSOLUTE NEUT (AUTO) 3.5 10^3/uL (1.7-8.2); BASOPHILS % (AUTO) 0.5 % (0-2); HEMATOCRIT 36.2 % (36.0-47.0); HEMOGLOBIN 12.6 g/dL (12.0-15.5); LYMPHOCYTES % (AUTO) 36.7 % (13-45); MEAN CORPUSCULAR HEMOGLOBIN 29.9 pg (27.0-33.4); MEAN CORPUSCULAR HGB CONC 34.8 g/dL (32.0-36.0); MEAN CORPUSCULAR VOLUME 86 fl (80-97); MONOCYTES % (AUTO) 6.2 % (3-13); PLATELET COUNT 301 10^3/uL (150-450); RED BLOOD COUNT 4.22 10^6/uL (3.72-5.28); RED CELL DISTRIBUTION WIDTH 18.7 % (11.5-14.0); SEGMENTED NEUTROPHILS % (AUTO) 53.6 % (42-78); TOTAL CELLS COUNTED % (AUTO) 100 %; WHITE BLOOD COUNT 6.5 10^3/uL (4.0-10.5)
[2019-03-26 17:33] LABS: ALBUMIN 4.6 g/dL (3.5-5.0); ALKALINE PHOSPHATASE 38 U/L (38-126); ANION GAP 10 (5-19); ASPARTATE AMINO TRANSFERASE 21 U/L (14-36); BILIRUBIN,DIRECT 0.1 mg/dL (0.0-0.4); BILIRUBIN,TOTAL 0.5 mg/dL (0.2-1.3); BLOOD UREA NITROGEN 11 mg/dL (7-20); CALCIUM 9.7 mg/dL (8.4-10.2); CARBON DIOXIDE 25 mmol/L (22-30); CHLORIDE 106 mmol/L (98-107); GLUCOSE 95 mg/dL (75-110); POTASSIUM 4.8 mmol/L (3.6-5.0); TOTAL PROTEIN 8.1 g/dL (6.3-8.2)
[2019-03-26 18:47] LABS: APPEARANCE,URINE SLIGHTLY-CLOUDY; BILIRUBIN,URINE NEGATIVE (NEGATIVE); COLOR,URINE YELLOW; GLUCOSE, URINE NEGATIVE (NEGATIVE); KETONES,URINE NEGATIVE (NEGATIVE); PROTEIN,URINE 30 mg/dL (NEGATIVE); URINE SPECIFIC GRAVITY 1.028; UROBILINOGEN,URINE NEGATIVE mg/dL (<2.0)
--- NOTE | 2019-03-26 19:27 | ER Document Report ---
ED General - General Chief Complaint: Probable Seizure Stated Complaint: DIFFICULTY BREATHING/POST SIZURE Time Seen by Provider: 03/26/19 16:15 Primary Care Provider: [facility] [Provider Group] - Follow up as needed (IN 2-3 DAYS IF NOT BETTER) TRAVEL OUTSIDE OF THE [place] IN LAST 30 DAYS: No - Related Data Allergies/Adverse Reactions: haloperidol [From Haldol] Adverse Reaction (Verified 02/18/19 17:52) haloperidol lactate [From Haldol] Adverse Reaction (Verified 02/18/19 17:52) prochlorperazine edisylate [From Compazine] Adverse Reaction (Verified 02/18/19 17:52) prochlorperazine maleate [From Compazine] Adverse Reaction (Verified 02/18/19 17:52) Home Medications: Depakote Past Medical History - Social History Smoking Status: Never Smoker Frequency of alcohol use: None Drug Abuse: None Family History: Reviewed & Not Pertinent, CVA, DM, Hypertension, Malignancy Patient has suicidal ideation: No Patient has homicidal ideation: No Neurological Medical History: Reports: Hx Migraine, Hx Seizures - No diagnosed seizure disorder (January 2017) Endocrine Medical History: Denies: Hx Diabetes Mellitus Type 1, Hx Diabetes Mellitus Type 2 Renal/ Medical History: Denies: Hx Peritoneal Dialysis Psychiatric Medical History: Reports: Hx Anxiety Past Surgical History: Reports: Hx Section - x 2, Hx Tubal Ligation - Immunizations Immunizations up to date: Yes Hx Diphtheria, Pertussis, Tetanus Vaccination: Yes Physical Exam - Vital signs Vitals: Temp Pulse Resp BP Pulse Ox 98.0 F 98 20 115/77 100 03/26/19 16:12 03/26/19 16:12 03/26/19 16:12 03/26/19 16:12 03/26/19 16:12 - Notes Notes: Patient is in response has not been feeling well for about a week and a half. She says some nausea and intermittent vomiting. She has some occasional dizziness and weakness also. She reports is a runny nose URI and a nonproductive cough has pain across her chest and some mild shortness of breath. No fevers but has felt warm. She has had no abdominal pain or diarrhea no dysuria rashes or joint pain. Pain is described as achy sensation is been fairly constant. Does get worse when she takes a deep breath and coughs. No diarrhea. She has been able tolerate some liquids. She does report a possible seizure in route to the hospital today. Her friend says that patient started to hyperventilate and got stiff all over her eyes were open and she was talking the whole time. Again the patient was awake and talking. Tonic-clonic activity. Tongue biting or incontinence and no postictal state afterwards. His medical history significant for migraines and seizures versus pseudoseizures. Patient says that she was seen here once and put on Depakote followed up with neurologist who put her back on it but told her it would also help with her migraine headaches never had an EGD she has no diabetes or hypertension Medications she was on Depakote in the past she told triage she could not afford it then told me that she ran out Social history does not smoke or drink at all denies illegal drugs Review of systems pertinent positives and negatives in HPI otherwise all the systems were reviewed and acutely negative PHYSICIAN EXAM -vital signs are noted triage note and note from triage reviewed GENERAL: Well-appearing, well-nourished and in __acute distress____ HEAD: Atraumatic, normocephalic. EYES: Pupils equal round and reactive to light, extraocular movements intact, there is no nystagmus or photophobia sclera anicteric, conjunctiva are normal. ENT: nares patent, oropharynx clear without exudates. Moist mucous membranes. No lesions in the mouth NECK: supple without lymphadenopathy no meningeal signs LUNGS: Breath sounds clear to auscultation bilaterally and equal. No wheezes rales or rhonchi. HEART: Regular rate and rhythm without murmurs ABDOMEN: Soft, nontender, normoactive bowel sounds. EXTREMITIES: No deformity, no edema. NEUROLOGICAL: Alert and oriented x4. Cranial nerves he has symmetrical smile facies and shoulder shrug. His motor strength is 5/5 bilaterally in the upper and lower extremities. Toes downgoing. Sensation is intact to light touch is a negative Romberg and normal gait PSYCH: Normal mood, normal affect. SKIN: Warm, Dry, normal turgor, no rashes or lesions noted. BACK-nontender in the midline Differential diagnosis seizure pseudoseizures dehydration viral syndrome Course - Re-evaluation Re-evalutation: 03/26/19 20:25 ED patient remained stable she was given IV fluids and is feeling well she is tolerating liquids well. Medical decision-making patient presents with appears to be a viral syndrome. Laboratory studies were unremarkable she looks well can be discharged home. 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 She indicates that last time she was there was told she would need one but did not follow-up given the number for care center for follow-up if not improved in 2 or 3 days At this time there is no indication for admission. I have discussed the findings with patient/family with return precautions and follow-up recommendations. Verbal discharge instructions given at the bedside and opportunity for questions given. Medication warnings were given if indicated. Patient is in agreement with this plan and has verbalized understanding of return precautions and the need for primary care follow-up as directed.. - Vital Signs Vital signs: Temp Pulse Resp BP Pulse Ox 98.3 F 59 L 20 107/68 100 03/26/19 18:34 03/26/19 18:34 03/26/19 16:12 03/26/19 18:34 03/26/19 18:34 - Laboratory Result Diagrams: 03/26/19 16:51 03/26/19 16:51 Laboratory results interpreted by me: 03/26/19 03/26/19 16:51 18:25 RDW 18.7 H Urine Protein 30 H - Diagnostic Test Radiology reviewed: Reports reviewed Discharge - Discharge Clinical Impression: Viral syndrome, Dehydration Disposition: HOME, SELF-CARE Additional Instructions: Viral Syndrome The physician has diagnosed a viral infection. Viruses not only cause "colds," but can cause many different symptoms including generalized aching, fever, headache, cough, diarrhea, nausea, vomiting, and fatigue. The treatment, for the most part, is simply relief of symptoms. This means that antibiotics are usually not given. Rest, fluids, pain medications and, occasionally, medication for the specific symptoms that are most bothersome will be prescribed. Use good handwashing to avoid passing the virus to others. Shared toys should be cleaned with disinfectant. Clean the toilets, sinks, and counter surfaces in bathrooms. Launder clothing in hot water. Contact the physician if you develop any new or unusual symptoms such as severe headache, stiff neck, high fever, chest pain, productive cough, or sh ortness of breath. You should be rechecked if you don't see marked improvement within seven to 10 days. Please review the discharge instructions, they will tell you about your disease/injury and what you need to return to the ED for Return to the ED if you feel worse or can follow-up with your family doctor Drink plenty of fluids Follow-up with your neurologist in 1 week for EEG to determine if you have true seizures Follow-up with a limited neurology in 3 to 5 days call for appointment-[phone] Prescriptions: Divalproex Sodium [Depakote] 250 mg PO BID #60 tablet. Ondansetron HCl [Zofran 4 mg Tablet] 1 tab PO Q4H PRN #10 tablet PRN Reason: Referrals: [facility] [Provider Group] - Follow up as needed (IN 2-3 DAYS IF NOT BETTER)
[2019-03-26] MEDS ORDERED: DIVALPROEX SODIUM 250 MG TABLET.DR PO ONE (20:45)
[2019-03-26 21:08] VITALS: BP 111/52
== END 2019-03-26 21:03 | disposition home or self-care (01) ==
LOC: ER 16:06
DX: B34.9 Viral infection, unspecified (principal); E86.0 Dehydration; R11.2 Nausea with vomiting, unspecified; R42 Dizziness and giddiness; R53.1 Weakness; R09.89 Other specified symptoms and signs involving the circulatory and respiratory systems; R07.9 Chest pain, unspecified; R06.02 Shortness of breath; G43.909 Migraine, unspecified, not intractable, without status migrainosus
CPT/HCPCS: 99285; 96365; 36415; 83735; 85025; 81025; 80053; 81001; 71046; J7030; J1953

== ENCOUNTER 2019-04-07 18:10 | Emergency (ER) | payer SELFPAY ==
--- NOTE | 2019-04-07 19:55 | ER Document Report ---
ED Medical Screen (RME) - General Chief Complaint: Cough Stated Complaint: COUGH,CONGESTION,HEADACHE Time Seen by Provider: 04/07/19 19:48 TRAVEL OUTSIDE OF THE [place] IN LAST 30 DAYS: No - HPI Notes: 04/07/19 19:53 Patient is a 29-year-old female with a history of migraines and seizures who presents complaining of continued nasal congestion is discharge, dry cough, fatigue, intermittent nausea, decreased p.o. intake for the past 2 and half weeks. She was evaluated 12 days ago who my triage at that time, but she states that she is not here for any seizures at this time. She does continue to have a cough and illness nose diagnosed viral from her last visit. Patient is requesting a bag of fluids as she has not been drinking or eating much because of nausea. She had a negative test at her last visit as well. No fever. I have treated and performed a rapid initial assessment of this patient. A comprehensive ED assessment and evaluation of the patient, analysis of test results and completion of medical decision making process will be conducted by additional ED providers. PHYSICAL EXAMINATION: GENERAL: Well-appearing, well-nourished and in no acute distress. A&Ox4. Answers questions appropriately. Lungs: Grossly CTAB without retractions Abdomen: Limited exam, grossly nontender. - Related Data Allergies/Adverse Reactions: haloperidol [From Haldol] Adverse Reaction (Verified 04/07/19 19:47) haloperidol lactate [From Haldol] Adverse Reaction (Verified 04/07/19 19:47) prochlorperazine edisylate [From Compazine] Adverse Reaction (Verified 04/07/19 19:47) prochlorperazine maleate [From Compazine] Adverse Reaction (Verified 04/07/19 19:47) Home Medications: DEPAKOTE : SEIZURES (NOT TAKING) Past Medical History - Social History Family history: Other - anemia Neurological Medical History: Reports: Hx Migraine, Hx Seizures - No diagnosed seizure disorder (January 2017) Endocrine Medical History: Denies: Hx Diabetes Mellitus Type 1, Hx Diabetes Mellitus Type 2 Renal/ Medical History: Denies: Hx Peritoneal Dialysis Psychiatric Medical History: Reports: Hx Anxiety Past Surgical History: Reports: Hx Section - x 2, Hx Tubal Ligation - Immunizations Immunizations up to date: Yes Hx Diphtheria, Pertussis, Tetanus Vaccination: Yes Physical Exam - Vital signs Vitals: Temp Pulse Resp BP Pulse Ox 99.0 F 87 20 104/69 97 04/07/19 18:44 04/07/19 18:44 04/07/19 18:44 04/07/19 18:44 04/07/19 18:44 Course - Vital Signs Vital signs: Temp Pulse Resp BP Pulse Ox 99.0 F 87 20 104/69 97 04/07/19 18:44 04/07/19 18:44 04/07/19 18:44 04/07/19 18:44 04/07/19 18:44
[2019-04-07] MEDS ORDERED: ONDANSETRON HCL INJ/PF 4 MG/2 ML SDV IV ONE ×2 (19:56→22:32)
[2019-04-07] MEDS ORDERED: NORMAL SALINE 1000 ML 1,000 ML IV ONE ×2 (19:56→22:32)
--- NOTE | 2019-04-07 20:37 | RADIOLOGY REPORT (SQ) ---
EXAM DESCRIPTION: XR CHEST 2 VIEWS COMPLETED DATE/TME: 04/07/2019 19:55 CLINICAL HISTORY: 29 years, Female, cough COMPARISON: April 25, 2018 NUMBER OF VIEWS: 2 TECHNIQUE: LIMITATIONS: None. FINDINGS: Lungs grossly clear. Cardiomediastinal silhouette is within normal limits IMPRESSION: No evidence of active intrathoracic disease copyright 2010 [employer]- All Rights Reserved
[2019-04-07 20:49] LABS: ABSOLUTE EOSINOPHILS # (AUTO) 0.1 10^3/uL (0.0-0.6); ABSOLUTE LYMPHOCYTES (AUTO) 1.7 10^3/uL (0.5-4.7); ABSOLUTE MONOCYTES (AUTO) 0.6 10^3/uL (0.1-1.4); ABSOLUTE NEUT (AUTO) 2.3 10^3/uL (1.7-8.2); BASOPHILS % (AUTO) 0.6 % (0-2); EOSINOPHILS % (AUTO) 3.1 % (0-6); HEMATOCRIT 35.3 % (36.0-47.0); HEMOGLOBIN 12.4 g/dL (12.0-15.5); MEAN CORPUSCULAR HEMOGLOBIN 29.9 pg (27.0-33.4); MEAN CORPUSCULAR HGB CONC 35.1 g/dL (32.0-36.0); MEAN CORPUSCULAR VOLUME 85 fl (80-97); MONOCYTES % (AUTO) 13.5 % (3-13); PLATELET COUNT 245 10^3/uL (150-450); RED BLOOD COUNT 4.14 10^6/uL (3.72-5.28); RED CELL DISTRIBUTION WIDTH 18.4 % (11.5-14.0); SEGMENTED NEUTROPHILS % (AUTO) 47.8 % (42-78); TOTAL CELLS COUNTED % (AUTO) 100 %; WHITE BLOOD COUNT 4.7 10^3/uL (4.0-10.5)
[2019-04-07 21:07] LABS: ALBUMIN 4.3 g/dL (3.5-5.0); ALKALINE PHOSPHATASE 32 U/L (38-126); ANION GAP 11 (5-19); ASPARTATE AMINO TRANSFERASE 22 U/L (14-36); BILIRUBIN,DIRECT 0.2 mg/dL (0.0-0.4); BILIRUBIN,TOTAL 0.3 mg/dL (0.2-1.3); BLOOD UREA NITROGEN 14 mg/dL (7-20); CALCIUM 9.1 mg/dL (8.4-10.2); CARBON DIOXIDE 20 mmol/L (22-30); CHLORIDE 103 mmol/L (98-107); GLUCOSE 91 mg/dL (75-110); POTASSIUM 4.6 mmol/L (3.6-5.0); TOTAL PROTEIN 7.8 g/dL (6.3-8.2)
[2019-04-08] MEDS ORDERED: LORATADINE 10 MG TABLET PO ONE (00:32)
[2019-04-08] MEDS ORDERED: KETOROLAC TROMETHAMINE INJ/PF 30 MG/1 ML SDV IV ONE (00:32)
--- NOTE | 2019-04-08 00:38 | ER Document Report ---
ED Flu Like - General Chief Complaint: Flu Symptoms Stated Complaint: COUGH,CONGESTION,HEADACHE Time Seen by Provider: 04/07/19 19:48 Primary Care Provider: [facility] [Provider Group] - Follow up as needed [facility] [Provider Group] - Follow up as needed [facility] [Provider Group] - Follow up as needed [facility] [Provider Group] - Follow up as needed Mode of Arrival: Ambulatory Information source: Patient Notes: 29-year-old female presented to ED for complaint of headache nasal congestion cough fatigue and intermittent nausea. She states that she has had a decreased appetite due to the symptoms. She was seen couple weeks ago for similar symptoms. Patient continues to have the cough and congestion and was no whites lasting so long. Patient requested and received a bag of fluids even though she was eating and drinking. She had a negative test. She denies any fevers. Patient is alert oriented respirations regular nonlabored speaking in full sentences walks with even steady gait. TRAVEL OUTSIDE OF THE [place] IN LAST 30 DAYS: No - HPI Onset: Other - 3 weeks Quality of pain: Achy Severity: Moderate Pain Level: 2 Associated symptoms: Nonproductive cough, Headache, Nausea, Rhinnorhea Similar symptoms previously: Yes Recently seen / treated by doctor: No - Related Data Allergies/Adverse Reactions: haloperidol [From Haldol] Adverse Reaction (Verified 04/07/19 19:47) haloperidol lactate [From Haldol] Adverse Reaction (Verified 04/07/19 19:47) prochlorperazine edisylate [From Compazine] Adverse Reaction (Verified 04/07/19 19:47) prochlorperazine maleate [From Compazine] Adverse Reaction (Verified 04/07/19 19:47) Home Medications: DEPAKOTE : SEIZURES (NOT TAKING) Past Medical History - General Information source: Patient - Social History Smoking Status: Former Smoker Frequency of alcohol use: Occasional Drug Abuse: None Lives with: Family Family History: Reviewed & Not Pertinent, CVA, DM, Hypertension, Malignancy Patient has suicidal ideation: No Patient has homicidal ideation: No - Past Medical History Cardiac Medical History: Reports: None Pulmonary Medical History: Reports: None EENT Medical History: Reports: None Neurological Medical History: Reports: Hx Migraine, Hx Seizures - No diagnosed seizure disorder (January 2017) Endocrine Medical History: Reports: None Renal/ Medical History: Reports: None Malignancy Medical History: Reports: None GI Medical History: Reports: None Musculoskeletal Medical History: Reports None Skin Medical History: Reports None Psychiatric Medical History: Reports: Hx Anxiety Traumatic Medical History: Reports: None Past Surgical History: Reports: Hx Section - x 2, Hx Tubal Ligation - Immunizations Immunizations up to date: Yes Hx Diphtheria, Pertussis, Tetanus Vaccination: Yes Review of Systems - Review of Systems Constitutional: Recent illness EENT: Nose discharge, Sinus discharge Cardiovascular: No symptoms reported Respiratory: No symptoms reported Gastrointestinal: Abdominal pain, Nausea Genitourinary: No symptoms reported Female Genitourinary: No symptoms reported Musculoskeletal: No symptoms reported Skin: No symptoms reported Hematologic/Lymphatic: No symptoms reported Neurological/Psychological: No symptoms reported -: Yes All other systems reviewed and negative Physical Exam - Vital signs Vitals: Temp Pulse Resp BP Pulse Ox 99.0 F 87 20 104/69 97 04/07/19 18:44 04/07/19 18:44 04/07/19 18:44 04/07/19 18:44 04/07/19 18:44 Interpretation: Normal - General General appearance: Appears well, Alert - HEENT Head: Normocephalic, Atraumatic Eyes: Normal Pupils: PERRL Ears: Normal External canal: Normal Tympanic membrane: Normal Nasal: Purulent discharge, Swelling Mouth/Lips: Normal Mucous membranes: Normal Pharynx: Normal Neck: Normal - Respiratory Respiratory status: No respiratory distress Chest status: Nontender Breath sounds: Normal Chest palpation: Normal - Cardiovascular Rhythm: Regular Heart sounds: Normal auscultation Murmur: No - Abdominal Inspection: Normal Distension: No distension Bowel sounds: Normal Tenderness: Nontender. No: Tender Organomegaly: No organomegaly - Back Back: Normal, Nontender - Extremities General upper extremity: Normal inspection, Nontender, Normal color, Normal ROM, Normal temperature General lower extremity: Normal inspection, Nontender, Normal color, Normal ROM, Normal temperature, Normal weight bearing. No: Ailyn's sign - Neurological Neuro grossly intact: Yes Cognition: Normal Orientation: AAOx4 [place] Coma Scale Eye Opening: Spontaneous [place] Coma Scale Verbal: Oriented Jeimy Coma Scale Motor: Obeys Commands Jeimy Coma Scale Total: 15 Speech: Normal Motor strength normal: LUE, RUE, LLE, RLE Sensory: Normal - Psychological Associated symptoms: Normal affect, Normal mood - Skin Skin Temperature: Warm Skin Moisture: Dry Skin Color: Normal Course - Re-evaluation Re-evalutation: 04/08/19 09:20 After performing a Medical Screening Examination, I estimate there is LOW risk for ACUTE CORONARY SYNDROME, RESPIRATORY FAILURE, SEPSIS OR MENINGITIS, thus I consider the discharge disposition reasonable. I have reevaluated this patient multiple times and no significant life threatening changes are noted. The patient and I have discussed the diagnosis and risks, and we agree with discharging home with close follow-up. We also discussed returning to the Emergency Department immediately if new or worsening symptoms occur. We have discussed the symptoms which are most concerning (e.g., changing or worsening pain, trouble swallowing or breathing, neck stiffness, fever) that necessitate i mmediate return. - Vital Signs Vital signs: Temp Pulse Resp BP Pulse Ox 98.5 F 74 20 110/62 99 04/08/19 01:30 04/08/19 01:30 04/08/19 01:30 04/08/19 01:30 04/08/19 01:30 - Laboratory Result Diagrams: 04/07/19 20:30 04/07/19 20:30 Laboratory results interpreted by me: 04/07/19 04/07/19 04/08/19 20:30 20:30 00:43 Hct 35.3 L RDW 18.4 H [place] % (Auto) 13.5 H Sodium 134.1 L Carbon Dioxide 20 L Alkaline Phosphatase 32 L Urine Ketones 20 H Leukocyte Esterase Rfl SMALL H - Diagnostic Test Radiology reviewed: Image reviewed, Reports reviewed Discharge - Discharge Clinical Impression: URI (upper respiratory infection) Qualifiers: URI type: unspecified viral URI Qualified Code(s): J06.9 - Acute upper respiratory infection, unspecified Headache Qualifiers: Headache type: unspecified Headache chronicity pattern: unspecified pattern Intractability: not intractable Qualified Code(s): R51 - Headache Condition: Stable Disposition: HOME, SELF-CARE Additional Instructions: UPPER RESPIRATORY ILLNESS: You have a viral infection of the respiratory passages -- a "cold." This common infection causes nasal congestion, drainage, and often sore throat and cough. It is highly contagious. The disease usually lasts about 10 to 14 days. There is no "cure" for the viral infection -- it must run its course. If there is a complication, such as bacterial infection in the nose, sinuses, middle ear, or bronchial tubes, antibiotics may be required. The antibiotics won't affect the virus. Drink plenty of fluids. A humidifier may help. An expectorant medication or decongestant may make you more comfortable. Use acetaminophen or ibuprofen for fever or aches. See the doctor if fever persists over two days, if there is any significant worsening of your symptoms, or if you simply fail to improve as expected. Headache The physician does not feel that the headache you are experiencing has a serious underlying cause. Most headaches are due to emotional stress, with resultant muscle tension (tension headache). Occasionally, headaches are secondary to changes in the blood vessels of the scalp (vascular headache and migraine headache). Sometimes, a headache is the first symptom of another developing illness, such as a viral infection. You have no evidence of stroke, bleeding, meningitis, or other serious cause of your headache. The treatment of headaches varies with the severity and cause of the pain. Not all headaches need pain shots. In fact, there is evidence that using narcotics for headaches may make them worse in the long run. The physician will determine the therapy that's in your best interest. If you develop a fever, if the headache is different from any you've previously experienced, or if the headache progressively worsens, then call your physician at once or go to the emergency room. Antinausea Medication You have been given a medication to suppress nausea and vomiting. This type of medication can be given as a shot, pill, or suppository. It will usually last for many hours. Pills and shots usually last six to eight hours, suppositories last about 12 hours. For the typical illness, only one or two doses of the medication may be necessary. Mild lightheadedness may occur. This type of medicine can cause drowsiness. Do not drive or operate dangerous machinery while under its influence. Do not mix with alcohol. See your doctor at once if you have muscle spasms or tightness, or uncontrollable motions (particularly of the neck, mouth, or jaw). Persistent vomiting or severe lightheadedness should also be evaluated by the physician. You were treated with Claritin 10 mg you can also use Sudafed 30 mg daily and Mucinex 600 mg twice a day. These are all jntw-xon-sftlcuv medications for cough cold congestion. You do need to call the go to the pharmacist to get the Sudafed from behind the counter please get a little red pills they are more effective. He could also use Flonase which is ejba-lgc-[id number] 1 spray each nostril twice a day. He could also use salt soda solution gargles. These will help to remove the drainage from the back your throat. Chloraseptic spray was brwj-qjr-[id number] that will also help with your sore throat. Salt and soda solution gargle 1 quart of water 1 tablespoon of salt 1 teaspoon of baking soda Mixed 3 ingredients together and boil for 1 minute Placed in a covered quart jar Use 1/2 ounce of cold solution to gargle 3 times a day COUGH-SUPPRESSANT & EXPECTORANT MEDICATION: You are to use a cough medication as needed for relief of symptoms. This medicine is a combination of an expectorant (to make the mucous thinner and more easily "coughed up") and a cough suppressant (to reduce the frequency of coughing). The cough-suppressant medicine is related to narcotics. You may experience mild nausea and sleepiness. Some patients who are very sensitive to narcotics may have stomach pain from this medicine. Taking the medicine with food reduces these side effects. Do not drive or work with machinery until you know how this medicine affects you. The expectorant should have no side effects. Iodine-containing expectorants (such as organidin) should not be taken by persons with active thyroid disease unless approved by your doctor. Call the doctor if you develop shortness of breath, hives, rash, itching, lightheadedness, or severe nausea and vomiting. USE OF ACETAMINOPHEN (Tylenol): Acetaminophen may be taken for pain relief or fever control. It's much safer than aspirin, offering a wider range of "safe" dosages. It is safe during . Some brand names are Tylenol, Panadol, Datril, Anacin 3, Tempra, and Liquiprin. Acetaminophen can be repeated every four hours. The following are maximum recommended dosages: >89 pounds or adults 650 mg to 900 mg Acetaminophen can be repeated every four hours. Maximum dose not to exceed 4000 mg a day. FOLLOW-UP CARE: If you have been referred to a physician for follow-up care, call the physicians office for an appointment as you were instructed or within the next two days. If you experience worsening or a significant change in your symptoms, notify the physician immediately or return to the Emergency Department at any time for re-evaluation. Prescriptions: Ondansetron [Zofran Odt 4 mg Tablet] 1 tab PO Q6H #15 tab.rapdis Forms: Return to Work Referrals: [facility] [Provider Group] - Follow up as needed [facility] [Provider Group] - Follow up as needed [facility] [Provider Group] - Follow up as needed [facility] [Provider Group] - Follow up as needed
[2019-04-08 01:08] LABS: APPEARANCE,URINE CLEAR; BILIRUBIN,URINE NEGATIVE (NEGATIVE); COLOR,URINE YELLOW; GLUCOSE, URINE NEGATIVE (NEGATIVE); KETONES,URINE 20 mg/dL (NEGATIVE); PROTEIN,URINE NEGATIVE (NEGATIVE); URINE SPECIFIC GRAVITY 1.021; UROBILINOGEN,URINE NEGATIVE mg/dL (<2.0)
[2019-04-08 01:30] VITALS: BP 110/62
[2019-04-08 02:38] LABS: CHLAM PCR NOT DETECTED (NOT DETECT)
== END 2019-04-08 01:30 | disposition home or self-care (01) ==
LOC: ER 18:10
DX: J06.9 Acute upper respiratory infection, unspecified (principal); B97.89 Other viral agents as the cause of diseases classified elsewhere; R51 Headache; R09.81 Nasal congestion; R05 Cough; R53.83 Other fatigue; R11.0 Nausea; R63.0 Anorexia; R10.9 Unspecified abdominal pain; J34.89 Other specified disorders of nose and nasal sinuses; Z87.891 Personal history of nicotine dependence
CPT/HCPCS: 99283; 96361; 96374; 96375; 36415; 87086; 84703; 85025; 80053; 81001; 87491; 87591; 71046; J1885; J2405; J7030

== ENCOUNTER 2019-05-20 18:25 | Emergency (ER) | payer SELFPAY ==
--- NOTE | 2019-05-20 20:41 | ER Document Report ---
ED Medical Screen (RME) - General Chief Complaint: Headache Stated Complaint: HEADACHE,NAUSEA,DIZZINESS Time Seen by Provider: 05/20/19 20:38 Mode of Arrival: Ambulatory Information source: Patient Notes: 29-year-old female presented to ED for complaint of nausea dizziness and headache for the last 3 days. She states she is very hard fighting vomiting but she has been nauseated for 3 days. She is alert oriented respirations regular and unlabored speaking in full sentences. Patient does have a mild swelling to the nasal passage little bit of postnasal drip nothing that can cause the sy mptoms she is having. She states she is also been losing a lot of weight. She states she was hypothyroid at one point but they never got to the point where they put her on medications. She did request that this also be evaluated. I have greeted and performed a rapid initial assessment of this patient. A comprehensive ED assessment and evaluation of the patient, analysis of test results and completion of medical decision making process will be conducted by an additional ED providers. TRAVEL OUTSIDE OF THE [place] IN LAST 30 DAYS: No - Related Data Allergies/Adverse Reactions: haloperidol [From Haldol] Adverse Reaction (Verified 04/07/19 19:47) haloperidol lactate [From Haldol] Adverse Reaction (Verified 04/07/19 19:47) prochlorperazine edisylate [From Compazine] Adverse Reaction (Verified 04/07/19 19:47) prochlorperazine maleate [From Compazine] Adverse Reaction (Verified 04/07/19 19:47) Past Medical History - Social History Family history: Other - anemia Neurological Medical History: Reports: Hx Migraine, Hx Seizures - No diagnosed seizure disorder (January 2017) Endocrine Medical History: Denies: Hx Diabetes Mellitus Type 1, Hx Diabetes Mellitus Type 2 Renal/ Medical History: Denies: Hx Peritoneal Dialysis Psychiatric Medical History: Reports: Hx Anxiety Past Surgical History: Reports: Hx Section - x 2, Hx Tubal Ligation - Immunizations Immunizations up to date: Yes Hx Diphtheria, Pertussis, Tetanus Vaccination: Yes Physical Exam - Vital signs Vitals: Temp Pulse Resp BP Pulse Ox 98.3 F 67 16 124/79 100 05/20/19 20:11 05/20/19 20:11 05/20/19 20:11 05/20/19 20:11 05/20/19 20:11 Course - Vital Signs Vital signs: Temp Pulse Resp BP Pulse Ox 98.3 F 67 16 124/79 100 05/20/19 20:11 05/20/19 20:11 05/20/19 20:11 05/20/19 20:11 05/20/19 20:11
[2019-05-20 22:33] LABS: ABSOLUTE BASOPHILS # (AUTO) 0.1 10^3/uL (0.0-0.2); ABSOLUTE EOSINOPHILS # (AUTO) 0.3 10^3/uL (0.0-0.6); ABSOLUTE LYMPHOCYTES (AUTO) 2.5 10^3/uL (0.5-4.7); ABSOLUTE MONOCYTES (AUTO) 0.4 10^3/uL (0.1-1.4); ABSOLUTE NEUT (AUTO) 3.3 10^3/uL (1.7-8.2); EOSINOPHILS % (AUTO) 4.2 % (0-6); HEMATOCRIT 37.1 % (36.0-47.0); HEMOGLOBIN 12.8 g/dL (12.0-15.5); LYMPHOCYTES % (AUTO) 38.8 % (13-45); MEAN CORPUSCULAR HEMOGLOBIN 29.4 pg (27.0-33.4); MEAN CORPUSCULAR HGB CONC 34.4 g/dL (32.0-36.0); MEAN CORPUSCULAR VOLUME 86 fl (80-97); MONOCYTES % (AUTO) 5.5 % (3-13); PLATELET COUNT 331 10^3/uL (150-450); RED BLOOD COUNT 4.35 10^6/uL (3.72-5.28); SEGMENTED NEUTROPHILS % (AUTO) 50.5 % (42-78); TOTAL CELLS COUNTED % (AUTO) 100 %; WHITE BLOOD COUNT 6.5 10^3/uL (4.0-10.5)
[2019-05-20 22:45] LABS: APPEARANCE,URINE CLEAR; BILIRUBIN,URINE NEGATIVE (NEGATIVE); COLOR,URINE YELLOW; GLUCOSE, URINE NEGATIVE (NEGATIVE); KETONES,URINE TRACE mg/dL (NEGATIVE); PROTEIN,URINE NEGATIVE (NEGATIVE); URINE SPECIFIC GRAVITY 1.015; UROBILINOGEN,URINE NEGATIVE mg/dL (<2.0)
[2019-05-20 22:52] LABS: ALBUMIN 4.6 g/dL (3.5-5.0); ALKALINE PHOSPHATASE 34 U/L (38-126); ANION GAP 12 (5-19); ASPARTATE AMINO TRANSFERASE 22 U/L (14-36); BILIRUBIN,DIRECT 0.2 mg/dL (0.0-0.4); BILIRUBIN,TOTAL 0.4 mg/dL (0.2-1.3); BLOOD UREA NITROGEN 11 mg/dL (7-20); CALCIUM 9.8 mg/dL (8.4-10.2); CARBON DIOXIDE 23 mmol/L (22-30); CHLORIDE 105 mmol/L (98-107); GLUCOSE 98 mg/dL (75-110); POTASSIUM 4.4 mmol/L (3.6-5.0); TOTAL PROTEIN 8.4 g/dL (6.3-8.2)
[2019-05-20 23:10] LABS: FREE T3 3.51 pg/mL (2.77-5.27); FREE T4 (FREE THYROXINE) 1.17 ng/dL (0.78-2.19)
[2019-05-20 23:23] LABS: THYROID STIMULATING HORMONE 3.62 uIU/mL (0.47-4.68)
[2019-05-21] MEDS ORDERED: KETOROLAC TROMETHAMINE INJ/PF 30 MG/1 ML SDV IV ONE (02:27)
[2019-05-21] MEDS ORDERED: DIPHENHYDRAMINE HCL 50 MG/ML VIAL IV ONE (02:27)
--- NOTE | 2019-05-21 02:31 | ER Document Report ---
ED General - General Chief Complaint: Headache Stated Complaint: HEADACHE,NAUSEA,DIZZINESS Time Seen by Provider: 05/20/19 20:38 Mode of Arrival: Ambulatory TRAVEL OUTSIDE OF THE [place] IN LAST 30 DAYS: No - HPI Notes: 29-year-old female presenting for evaluation of migraine headache. Patient is a frequent visitor to this ED and is also known to me from prior encounters. She reports that she has had headache intermittently for about 3 days now and this is typical of her usual migraines. She has been taking Excedrin Migraine [id number] with partial relief. She vomited a couple times earlier today. She is photophobic. She complains of bitemporal pain. She complains of some tingling of her fingers and her face which she usually gets when she has vomiting associated with her migraine. She denies any focal motor weakness. She denies any difficulty with speech. She denies any spots or flashes in her visual field. Patient denies any fever. She denies any trauma. Last menses 2 weeks ago described as normal. - Related Data Allergies/Adverse Reactions: haloperidol [From Haldol] Adverse Reaction (Verified 05/20/19 21:08) haloperidol lactate [From Haldol] Adverse Reaction (Verified 05/20/19 21:08) prochlorperazine edisylate [From Compazine] Adverse Reaction (Verified 05/20/19 21:08) prochlorperazine maleate [From Compazine] Adverse Reaction (Verified 05/20/19 21:08) Past Medical History - General Information source: Patient - Social History Smoking Status: Never Smoker Family History: Reviewed & Not Pertinent, CVA, DM, Hypertension, Malignancy Patient has suicidal ideation: No Patient has homicidal ideation: No Neurological Medical History: Reports: Hx Migraine, Hx Seizures - No diagnosed seizure disorder (January 2017) Endocrine Medical History: Denies: Hx Diabetes Mellitus Type 1, Hx Diabetes Mellitus Type 2 Renal/ Medical History: Denies: Hx Peritoneal Dialysis Psychiatric Medical History: Reports: Hx Anxiety Past Surgical History: Reports: Hx Section - x 2, Hx Tubal Ligation - Immunizations Immunizations up to date: Yes Hx Diphtheria, Pertussis, Tetanus Vaccination: Yes Review of Systems - Review of Systems Notes: Constitutional: Negative for fever. HENT: Negative for sore throat. Eyes: Negative for visual changes. Cardiovascular: Negative for chest pain. Respiratory: Negative for shortness of breath. Gastrointestinal: As per HPI. Genitourinary: Negative for dysuria. Musculoskeletal: Negative for back pain. Skin: Negative for rash. Neurological: As per HPI. 10 point ROS negative except as marked above and in HPI. Physical Exam - Vital signs Vitals: Temp Pulse Resp BP Pulse Ox 98.3 F 67 16 124/79 100 05/20/19 20:11 05/20/19 20:11 05/20/19 20:11 05/20/19 20:11 05/20/19 20:11 - Notes Notes: GENERAL: Slender female appearing approximately stated age who is photophobic and appears uncomfortable. SKIN: Good turgor no rashes. HEAD: Normocephalic atraumatic. EYES: PERRLA. EOMI. Conjunctivae and sclerae clear. EARS: CANALS AND TMS CLEAR. NOSE: CLEAR. MOUTH: Moist mucosa. Good dentition. No stridor or edema. No drooling. NECK: Supple. No masses or thyromegaly. No adenopathy. Carotids 2+ without bruits. No JVD. BACK: Symmetrical without tenderness. CHEST: Respirations unlabored. Breath sounds clear and symmetrical. HEART: Regular rhythm. No murmur gallop or rub. ABDOMEN: Soft nontender without masses, organomegaly or rebound. Bowel sounds normally active. No bruits. GENITALIA: Deferred. EXTREMITIES: No edema. No calf tenderness. Cap refill less than 1.5 seconds. Dorsalis pedis and posterior tibial pulses 3+ and symmetrical. NEUROLOGICAL: GCS 15. Alert and oriented x3. Fluent speech. Cranial nerves II through XII intact. Sensorimotor and cerebellar normal. Normal tone. PSYCHIATRIC: Appropriate affect. Course - Re-evaluation Re-evalutation: 05/21/19 02:31 Patient appears to be having her typical migraine. I am going to treat her with IV normal saline, IV Toradol and IV Benadryl. 05/21/19 04:27 All symptoms resolved on reexam and patient is requesting discharge. - Vital Signs Vital signs: Temp Pulse Resp BP Pulse Ox 98.3 F 106 H 18 121/75 100 05/20/19 20:11 05/20/19 21:08 05/20/19 21:08 05/20/19 21:08 05/20/19 21:08 - Laboratory Result Diagrams: 05/20/19 22:00 05/20/19 22:00 Laboratory results interpreted by me: 05/20/19 05/20/19 05/20/19 22:00 22:00 22:07 RDW 17.0 H Alkaline Phosphatase 34 L Total Protein 8.4 H Urine Ketones TRACE H Leukocyte Esterase Rfl SMALL H Discharge - Discharge Clinical Impression: Migraine headache Qualifiers: Migraine type: unspecified Status migrainosus presence: without status migrainosus Intractability: not intractable Qualified Code(s): G43.909 - Migraine, unspecified, not intractable, without status migrainosus Condition: Stable Disposition: HOME, SELF-CARE Instructions: Headache ([facility]) Referrals: [facility] [Provider Group] - Follow up as needed
[2019-05-21] MEDS: NORMAL SALINE 1000 ML 1,000 ML IV ONE ×2 (03:05→03:17)
[2019-05-21 04:59] VITALS: BP 136/89
== END 2019-05-21 04:20 | disposition home or self-care (01) ==
LOC: ER 18:25
DX: G43.909 Migraine, unspecified, not intractable, without status migrainosus (principal); R11.2 Nausea with vomiting, unspecified; R42 Dizziness and giddiness; R20.0 Anesthesia of skin; Z88.8 Allergy status to other drugs, medicaments and biological substances
CPT/HCPCS: 99283; 96361; 96374; 96375; 36415; 87086; 84439; 83690; 84443; 84703; 85025; 80053; 81001; 84481; J1200; J1885; J7030

== ENCOUNTER 2019-07-23 23:47 | Emergency (ER) | payer SELFPAY ==
[2019-07-24 00:41] LABS: ABSOLUTE BASOPHILS # (AUTO) 0.1 10^3/uL (0.0-0.2); ABSOLUTE EOSINOPHILS # (AUTO) 0.4 10^3/uL (0.0-0.6); ABSOLUTE LYMPHOCYTES (AUTO) 3.3 10^3/uL (0.5-4.7); ABSOLUTE MONOCYTES (AUTO) 0.8 10^3/uL (0.1-1.4); ABSOLUTE NEUT (AUTO) 3.9 10^3/uL (1.7-8.2); BASOPHILS % (AUTO) 0.7 % (0-2); EOSINOPHILS % (AUTO) 5.1 % (0-6); HEMATOCRIT 32.2 % (36.0-47.0); HEMOGLOBIN 11.3 g/dL (12.0-15.5); LYMPHOCYTES % (AUTO) 38.7 % (13-45); MEAN CORPUSCULAR HEMOGLOBIN 29.3 pg (27.0-33.4); MEAN CORPUSCULAR HGB CONC 35.1 g/dL (32.0-36.0); MEAN CORPUSCULAR VOLUME 84 fl (80-97); MONOCYTES % (AUTO) 9.8 % (3-13); PLATELET COUNT 326 10^3/uL (150-450); RED BLOOD COUNT 3.86 10^6/uL (3.72-5.28); RED CELL DISTRIBUTION WIDTH 15.1 % (11.5-14.0); SEGMENTED NEUTROPHILS % (AUTO) 45.7 % (42-78); TOTAL CELLS COUNTED % (AUTO) 100 %; WHITE BLOOD COUNT 8.5 10^3/uL (4.0-10.5)
[2019-07-24 00:45] LABS: ALBUMIN 4.2 g/dL (3.5-5.0); ALKALINE PHOSPHATASE 40 U/L (38-126); ANION GAP 10 (5-19); ASPARTATE AMINO TRANSFERASE 60 U/L (14-36); BILIRUBIN,TOTAL 0.2 mg/dL (0.2-1.3); BLOOD UREA NITROGEN 17 mg/dL (7-20); CALCIUM 9.4 mg/dL (8.4-10.2); CARBON DIOXIDE 19 mmol/L (22-30); CHLORIDE 108 mmol/L (98-107); GLUCOSE 110 mg/dL (75-110); POTASSIUM 4.3 mmol/L (3.6-5.0); TOTAL PROTEIN 7.4 g/dL (6.3-8.2)
--- NOTE | 2019-07-24 00:52 | ER Document Report ---
ED General - General Stated Complaint: CHEST PAIN/POSSIBLE SEIZURE Time Seen by Provider: 07/24/19 00:30 Mode of Arrival: Ambulatory Information source: Patient Notes: per RN notes This nurse was called to the front of ED to respond to a patient. Pt was in parking lot of ED laying face down with knees bent underneath her, breathing heavily and clutching chest. Pt repeatedly stated "my chest, my chest". Pt was assisted into stretcher by this nurse and Radha PCT. Pt was brought to room 5 via stretcher and was assisted into ED stretcher by this nurse and Radha PCT. EKG performed immediately @ 2344. Pt stated her name was Gabi Pennington and was 88. Pt was able to state correct name and but was slow to respond. Pt states she has a hx of seizures and is on medication for seizures. When asked if pt has been taking seizure medication pt stated she stopped taking medication recently. Primary nurse Sanjuana RN at bedside and placed pt on radiation monitor and pulse ox and assumed care of pt. my notes 29-year-old black female arrives with right-sided chest pain of 10 out of 10 in nature. Patient reports she has had a history of seizures and chest pain and panic attacks but this present episode is the worst. Patient reports she has been off of her Depakote for several weeks and is scheduled to see her neurologist sometime soon. Patient reports around 5 to 6 weeks ago she only weighed 115 pounds but she went online and bought some Periactin for $8 and since then she has gained over 30 pounds. Patient reports she has a fat roll just underneath her right and left lower ribs. She also has tachycardia. No one in the family has any pulmonary emboli or any DVT. Patient reports she is been checked for thyroid in the past. Patient also reports she is on Depo- Provera for prevention and denies any at this time. She reports she is not sexually active at this time. I advised her we will definitely get a test today. Patient drove herself to the [facility]. TRAVEL OUTSIDE OF THE U.S. IN LAST 30 DAYS: No - HPI Onset: This morning - worse this evening Onset/Duration: Sudden Quality of pain: Achy Severity: Severe Pain Level: 5 Associated symptoms: Chest pain, Hurts to breath Exacerbated by: Movement, Deep breathing Relieved by: Denies Similar symptoms previously: Yes - but worse today 01/01 Recently seen / treated by doctor: Yes - Related Data Allergies/Adverse Reactions: haloperidol [From Haldol] Adverse Reaction (Verified 05/20/19 21:08) haloperidol lactate [From Haldol] Adverse Reaction (Verified 05/20/19 21:08) prochlorperazine edisylate [From Compazine] Adverse Reaction (Verified 05/20/19 21:08) prochlorperazine maleate [From Compazine] Adverse Reaction (Verified 05/20/19 21:08) Past Medical History - General Information source: Patient - Social History Smoking Status: Never Smoker Cigarette use (# per day): No Chew tobacco use (# tins/day): No Smoking Education Provided: No Frequency of alcohol use: None Drug Abuse: None Lives with: Family Family History: Reviewed & Not Pertinent, CVA, DM, Hypertension, Malignancy Neurological Medical History: Reports: Hx Migraine, Hx Seizures - No diagnosed seizure disorder (January 2017) Endocrine Medical History: Denies: Hx Diabetes Mellitus Type 1, Hx Diabetes Mellitus Type 2 Renal/ Medical History: Denies: Hx Peritoneal Dialysis Psychiatric Medical History: Reports: Hx Anxiety Past Surgical History: Reports: Hx Section - x 2, Hx Tubal Ligation - Immunizations Immunizations up to date: Yes Hx Diphtheria, Pertussis, Tetanus Vaccination: Yes Review of Systems - Review of Systems Constitutional: See HPI, Weakness EENT: No symptoms reported Cardiovascular: See HPI, Chest pain Respiratory: See HPI, Hurts to breathe Gastrointestinal: See HPI, Other - Fat rolls on upper abdomen just underneath bilateral lower anterior ribs. Genitourinary: No symptoms reported Female Genitourinary: No symptoms reported Musculoskeletal: No symptoms reported Skin: No symptoms reported Hematologic/Lymphatic: No symptoms reported Neurological/Psychological: No symptoms reported Physical Exam - Vital signs Vitals: Resp Pulse Ox 18 100 07/23/19 23:50 07/23/19 23:50 Interpretation: Tachycardic - General General appearance: Alert - HEENT Head: Normocephalic, Atraumatic Eyes: Normal Pupils: PERRL Pharynx: Normal Neck: Normal - Respiratory Respiratory status: No respiratory distress Chest status: Tender - right chest pain gripping in character Breath sounds: Normal Chest palpation: Normal - Cardiovascular Rhythm: Tachycardia Heart sounds: Normal auscultation Murmur: No - Abdominal Inspection: Normal, Other - fat roll along RUQ LUQ /rib margins that are new since beginning periactin Distension: No distension Bowel sounds: Normal Tenderness: Nontender Organomegaly: No organomegaly - Back Back: Normal - Extremities General upper extremity: Normal inspection General lower extremity: Normal inspection - Neurological Neuro grossly intact: Yes Cognition: Normal Orientation: AAOx4 [place] Coma Scale Eye Opening: Spontaneous [place] Coma Scale Verbal: Oriented Jeimy Coma Scale Motor: Obeys Commands [place] Coma Scale Total: 15 Speech: Normal Motor strength normal: LUE, RUE, LLE, RLE Sensory: Normal - Psychological Associated symptoms: Anxious - Skin Skin Temperature: Warm Skin Moisture: Dry Course - Vital Signs Vital signs: Temp Pulse Resp BP Pulse Ox 99 F 22 H 124/73 100 07/24/19 00:30 07/24/19 01:08 07/24/19 01:09 07/24/19 01:08 - Laboratory Result Diagrams: 07/24/19 00:04 07/24/19 00:04 Laboratory results interpreted by me: 07/24/19 07/24/19 07/24/19 00:04 00:04 00:04 Hgb 11.3 L Hct 32.2 L RDW 15.1 H D-Dimer Chloride 108 H Carbon Dioxide 19 L AST 60 H ALT 98 H TSH Beta HCG, Quant 6.38 H Urine Blood Ur Leukocyte Esterase 07/24/19 07/24/19 07/24/19 00:04 00:04 03:25 Hgb Hct RDW D-Dimer 1.00 H Chloride Carbon Dioxide AST ALT TSH 6.28 H Beta HCG, Quant Urine Blood MODERATE H Ur Leukocyte Esterase LARGE H - Diagnostic Test Radiology reviewed: Reports reviewed Radiology results interpreted by me: 07/24/19 02:13 CTA neg per radiology Critical Care Note - Critical Care Note Total time excluding time spent on procedures (mins): 90 Comments: follow-up with Dr. Nassar next Saturday days 27 July; I discussed this case with Dr. Nassar; HR down to 102 after meds Discharge - Discharge Clinical Impression: Chest pain at rest, weight gain on periactin, TSH elevation, Elevated serum hCG, Tachycardia Condition: Good Disposition: HOME, SELF-CARE Additional Instructions: Follow-up with Dr. Nassar on 5 May next Barbi and take medicines as directed; follow-up with honing machine set up operator tool about your elevated TSH and thyroid problem and also follow-up with [facility] BUSINESS MANAGER about your positive hCG test since you are on Depo-Provera Prescriptions: Propranolol HCl [Inderal 20 mg Tablet] 20 mg PO Q12 #20 tab Forms: Return to Work
--- NOTE | 2019-07-24 01:11 | RADIOLOGY REPORT (SQ) ---
EXAM DESCRIPTION: [facility]: XR CHEST 1 VIEW CLINICAL HISTORY: 29 years Female; cp; COMPARISON: 04/25/2018 FINDINGS: Lungs: Lungs are clear, with no focal infiltrate, pneumothorax, or pleural effusion. Mediastinum: Mediastinum is within normal limits for this positioning. Bones: Bony structures are unremarkable. IMPRESSION: 1. No acute pulmonary findings.
--- NOTE | 2019-07-24 02:11 | RADIOLOGY REPORT (SQ) ---
CLINICAL HISTORY: cp right sided tachycardia COMPARISON: None. TECHNIQUE: CT CHEST ANGIOGRAPHY WITHOUT THEN WITH IV CONTRAST on 07/24/2019 12:51 AM CDT. MIPS reconstructions were generated. This exam was performed according to our departmental dose-optimization program, which includes automated exposure control, adjustment of the mA and/or kV according to patient size and/or use of iterative reconstruction technique. MIP images were generated. FINDINGS: Thoracic aorta is normal in course and caliber without aneurysm or dissection. Pulmonary arteries are adequately opacified without acute or chronic filling defects. The heart is normal in size. There is no pericardial effusion. Intrathoracic lymph nodes are not enlarged. There is no pleural effusion, pleural thickening or pneumothorax. Central airways are patent. Lungs are clear with no consolidation, mass or interstitial lung disease. There are no acute abnormalities within the limited images of the upper abdomen. There are no acute osseous findings. No suspicious bony lesions. IMPRESSION: No aortic dissection or aneurysm. No pulmonary embolus. No pneumonia.
[2019-07-24 03:37] LABS: APPEARANCE,URINE SLIGHTLY-CLOUDY; BILIRUBIN,URINE NEGATIVE (NEGATIVE); COLOR,URINE YELLOW; GLUCOSE, URINE NEGATIVE (NEGATIVE); KETONES,URINE NEGATIVE (NEGATIVE); LEUKOCYTE ESTERASE,URINE LARGE (NEGATIVE); NITRITE,URINE NEGATIVE (NEGATIVE); PROTEIN,URINE NEGATIVE (NEGATIVE); URINE SPECIFIC GRAVITY 1.059; UROBILINOGEN,URINE NEGATIVE mg/dL (<2.0)
[2019-07-24] MEDS ORDERED: METOPROLOL TARTRATE PF/INJ 5 MG/5 ML SDV IV ONE (03:51)
[2019-07-24 03:52] LABS: URINE AMPHETAMINES SCREEN NEGATIVE; URINE BARBITURATES SCREEN NEGATIVE; URINE BENZODIAZEPINES SCREEN NEGATIVE; URINE COCAINE SCREEN NEGATIVE; URINE MARIJUANA (THC) SCREEN NEGATIVE; URINE METHADONE SCREEN NEGATIVE; URINE PHENCYCLIDINE SCREEN NEGATIVE
[2019-07-24 05:11] VITALS: BP 123/84
== END 2019-07-24 05:15 | disposition home or self-care (01) ==
LOC: ER 23:47
DX: R07.9 Chest pain, unspecified (principal); R63.5 Abnormal weight gain; R94.6 Abnormal results of thyroid function studies; R89.1 Abnormal level of hormones in specimens from other organs, systems and tissues; R00.0 Tachycardia, unspecified; R56.9 Unspecified convulsions; F41.9 Anxiety disorder, unspecified; Z91.19 Patient's noncompliance with other medical treatment and regimen; Z88.8 Allergy status to other drugs, medicaments and biological substances
CPT/HCPCS: 99291; 99292; 96374; 36415; 84702; 84443; 85025; 80053; 81001; 84484; 80307; 85379; 71045; 71275; J3490

== ENCOUNTER 2019-07-30 20:15 | Emergency (ER) | payer SELFPAY ==
--- NOTE | 2019-07-30 21:13 | ER Document Report ---
ED Medical Screen (RME) - General Chief Complaint: Abdominal Pain Stated Complaint: LEFT SIDED ABDOMINAL PAIN Time Seen by Provider: 07/30/19 20:48 TRAVEL OUTSIDE OF THE U.S. IN LAST 30 DAYS: No - HPI Notes: 07/30/19 21:09 29 yr old female presents today with complaints left abdominal sharp pain, abdominal swelling, vaginal bleeding, nausea. denies vomiting, diarrhea or f/c. pt states she was seen on the of this month for chest pain and dx with thyroid malfunction. pt reports approx 20 pound weight gain. When patient was seen in the emergency room earlier this month, she did have a positive test, but the number was only single digits. Pt states she started depo in march and recent injection in may and did not receive HCG test prior to injection. Pt states last sexually active in april. pt states she has been having heavy vaginal bleeding and fatigue and has been taking iron to help supplement. Pt seen at [facility] and started on keflex for uti. I have greeted and performed a rapid initial assessment of this patient. A comprehensive ED assessment and evaluation of the patient, analysis of test results and completion of the medical decision making process will be conducted by additional ED providers. PHYSICAL EXAMINATION: GENERAL: Well-appearing, well-nourished and in no acute distress. HEAD: Atraumatic, normocephalic. CV: s1, s2 regular abd: abd distention LUNGS: No respiratory distress NEUROLOGICAL: Normal speech, normal gait. SKIN: Warm, Dry, normal turgor, no rashes or lesions noted. 07/30/19 21:11 - Related Data Allergies/Adverse Reactions: haloperidol [From Haldol] Adverse Reaction (Verified 07/30/19 20:49) haloperidol lactate [From Haldol] Adverse Reaction (Verified 07/30/19 20:49) prochlorperazine edisylate [From Compazine] Adverse Reaction (Verified 07/30/19 20:49) prochlorperazine maleate [From Compazine] Adverse Reaction (Verified 07/30/19 20:49) Past Medical History - Social History Family history: Other - anemia Neurological Medical History: Reports: Hx Migraine, Hx Seizures - No diagnosed seizure disorder (January 2017) Endocrine Medical History: Denies: Hx Diabetes Mellitus Type 1, Hx Diabetes Mellitus Type 2 Renal/ Medical History: Denies: Hx Peritoneal Dialysis Psychiatric Medical History: Reports: Hx Anxiety Past Surgical History: Reports: Hx Section - x 2, Hx Tubal Ligation - Immunizations Immunizations up to date: Yes Hx Diphtheria, Pertussis, Tetanus Vaccination: Yes Physical Exam - Vital signs Vitals: Temp Pulse Resp BP Pulse Ox 97.5 F 106 H 22 H 125/82 97 07/30/19 20:22 07/30/19 20:22 07/30/19 20:22 07/30/19 20:22 07/30/19 20:22 Course - Vital Signs Vital signs: Temp Pulse Resp BP Pulse Ox 97.5 F 106 H 22 H 125/82 97 07/30/19 20:22 07/30/19 20:22 07/30/19 20:22 07/30/19 20:22 07/30/19 20:22
[2019-07-30 22:38] LABS: APPEARANCE,URINE CLEAR; BILIRUBIN,URINE NEGATIVE (NEGATIVE); COLOR,URINE YELLOW; GLUCOSE, URINE NEGATIVE (NEGATIVE); KETONES,URINE NEGATIVE (NEGATIVE); LEUKOCYTE ESTERASE,URINE TRACE (NEGATIVE); NITRITE,URINE NEGATIVE (NEGATIVE); PROTEIN,URINE NEGATIVE (NEGATIVE); URINE SPECIFIC GRAVITY 1.024; UROBILINOGEN,URINE NEGATIVE mg/dL (<2.0)
--- NOTE | 2019-07-30 22:47 | RADIOLOGY REPORT (SQ) ---
EXAM DESCRIPTION: US TRANSVAGINAL COMPLETED DATE/TME: 07/30/2019 21:10 CLINICAL HISTORY: 29 years, Female, vaginal bleeding COMPARISON: None. TECHNIQUE: Axial 2-D grayscale images of the pelvis were acquired. Doppler was utilized. LIMITATIONS: None. FINDINGS: Uterus measures 8.1 x 5.0 x 6.4 cm in size. Cervix is closed, measuring 3.1 cm in length. The endometrium is not clearly defined on this exam. No intrauterine is identified. Right ovary measures 3.0 x 3.0 x 1.7 cm in size. It demonstrates normal echogenicity and normal low resistance arterial waveforms/venous flow. Left ovary measures 2.5 x 2.7 x 1.9 cm in size. It also demonstrates normal echogenicity and normal low resistance arterial waveforms/venous flow. No significant free fluid is identified within the imaged pelvis. IMPRESSION: No intrauterine identified. Given the evidence of a positive hCG, differential considerations include miscarriage or potentially an early IUP. However, an ectopic is also not completely excluded by this exam. Depending on clinical findings, correlation with serial beta hCG levels and/or short interval follow-up pelvic ultrasound in 1 week may be of benefit. copyright 2010 [employer]- All Rights Reserved
[2019-07-30 23:14] LABS: ABSOLUTE BASOPHILS # (AUTO) 0.1 10^3/uL (0.0-0.2); ABSOLUTE EOSINOPHILS # (AUTO) 0.4 10^3/uL (0.0-0.6); ABSOLUTE LYMPHOCYTES (AUTO) 2.5 10^3/uL (0.5-4.7); ABSOLUTE MONOCYTES (AUTO) 0.8 10^3/uL (0.1-1.4); ABSOLUTE NEUT (AUTO) 3.7 10^3/uL (1.7-8.2); BASOPHILS % (AUTO) 0.9 % (0-2); EOSINOPHILS % (AUTO) 6.1 % (0-6); HEMATOCRIT 31.3 % (36.0-47.0); HEMOGLOBIN 10.9 g/dL (12.0-15.5); LYMPHOCYTES % (AUTO) 33.4 % (13-45); MEAN CORPUSCULAR HEMOGLOBIN 29.1 pg (27.0-33.4); MEAN CORPUSCULAR HGB CONC 34.8 g/dL (32.0-36.0); MEAN CORPUSCULAR VOLUME 84 fl (80-97); MONOCYTES % (AUTO) 10.2 % (3-13); PLATELET COUNT 329 10^3/uL (150-450); RED BLOOD COUNT 3.74 10^6/uL (3.72-5.28); RED CELL DISTRIBUTION WIDTH 15.5 % (11.5-14.0); SEGMENTED NEUTROPHILS % (AUTO) 49.4 % (42-78); TOTAL CELLS COUNTED % (AUTO) 100 %; WHITE BLOOD COUNT 7.4 10^3/uL (4.0-10.5)
[2019-07-30 23:23] LABS: ALBUMIN 3.9 g/dL (3.5-5.0); ALKALINE PHOSPHATASE 40 U/L (38-126); ANION GAP 5 (5-19); ASPARTATE AMINO TRANSFERASE 26 U/L (14-36); BILIRUBIN,TOTAL 0.3 mg/dL (0.2-1.3); BLOOD UREA NITROGEN 13 mg/dL (7-20); CALCIUM 8.9 mg/dL (8.4-10.2); CARBON DIOXIDE 24 mmol/L (22-30); CHLORIDE 108 mmol/L (98-107); GLUCOSE 150 mg/dL (75-110); POTASSIUM 4.6 mmol/L (3.6-5.0)
--- NOTE | 2019-07-31 00:14 | ER Document Report ---
ED GI/ - General Mode of Arrival: Ambulatory Information source: Patient TRAVEL OUTSIDE OF THE [place] IN LAST 30 DAYS: No - Related Data Home Medications: depo, last shot in may, synthroid, keppra, keflex <EMERSON DWYER - Last Filed: 07/31/19 01:15> <PRAKASH KIDD - Last Filed: 07/31/19 04:38> - General Chief Complaint: Abdominal Pain Stated Complaint: LEFT SIDED ABDOMINAL PAIN Time Seen by Provider: 07/30/19 20:48 Primary Care Provider: [facility] [Provider Group] - Follow up as needed Notes: 29-year-old female past medical history significant for migraines, seizure disorder, hypothyroidism presents to the emergency room with left lower pelvic pain that started earlier today. Patient states she was seen here July 23 for chest pain was told at that time that her thyroid levels were high and that she had a very low hCG. Of 6.38. Patient states she did follow-up with health department 2 days later had a negative urine test had a positive blood test with a hormone level of 9. Patient was told they were not sure i f she was or not. Patient has been on Depo since March. States she had her first shot in March her second in May. She states she had her Depo shot in May as scheduled. States it was not late. States she had a negative test in March but that they did not do a test when she went in May. States she has been bleeding consistently since she had her first depo shot in March states the bleeding is starting to subside is down to just 3 pads a day. Also states she went to the [facility] today for follow- up states she was diagnosed with UTI was started on Keflex. She states that all started on thyroid medication. She was referred to the emergency room because of the lower pelvic pain. She denies nausea, vomiting. She is a 4 para 2 if this is a confirmed . (EMERSON DWYER) - Related Data Allergies/Adverse Reactions: haloperidol [From Haldol] Adverse Reaction (Verified 07/30/19 20:49) haloperidol lactate [From Haldol] Adverse Reaction (Verified 07/30/19 20:49) prochlorperazine edisylate [From Compazine] Adverse Reaction (Verified 07/30/19 20:49) prochlorperazine maleate [From Compazine] Adverse Reaction (Verified 07/30/19 20:49) Past Medical History - General Information source: Patient - Social History Smoking Status: Never Smoker Chew tobacco use (# tins/day): No Frequency of alcohol use: Rare Drug Abuse: None Lives with: Family Family History: Reviewed & Not Pertinent, CVA, DM, Hypertension, Malignancy Patient has homicidal ideation: No Neurological Medical History: Reports: Hx Migraine, Hx Seizures - No diagnosed seizure disorder (January 2017) Endocrine Medical History: Denies: Hx Diabetes Mellitus Type 1, Hx Diabetes M ellitus Type 2 Renal/ Medical History: Denies: Hx Peritoneal Dialysis Psychiatric Medical History: Reports: Hx Anxiety Past Surgical History: Reports: Hx Section - x 2, Hx Tubal Ligation - Immunizations Immunizations up to date: Yes Hx Diphtheria, Pertussis, Tetanus Vaccination: Yes <EMERSON DWYER - Last Filed: 07/31/19 01:15> Review of Systems - Review of Systems Constitutional: No symptoms reported EENT: No symptoms reported Cardiovascular: No symptoms reported Respiratory: No symptoms reported Gastrointestinal: Abdominal pain Genitourinary: No symptoms reported Female Genitourinary: Vaginal bleeding Skin: denies: Rash -: Yes All other systems reviewed and negative <EMERSON DWYER - Last Filed: 07/31/19 01:15> Physical Exam - General General appearance: Appears well, Alert In distress: Mild - HEENT Head: Normocephalic, Atraumatic Eyes: Normal Pupils: PERRL - Respiratory Respiratory status: No respiratory distress Chest status: Nontender Breath sounds: Normal Chest palpation: Normal - Cardiovascular Rhythm: Tachycardia Heart sounds: Normal auscultation Murmur: No Friction rub: No - Abdominal Inspection: Normal Distension: No distension Bowel sounds: Normal Tenderness: Tender - left lower quadrant Organomegaly: No organomegaly - Genitourinary External exam: Normal Speculum exam: Normal, Cervix closed. No: Vaginal discharge Vaginal bleeding: None Bimanuel exam: Normal. No: Cervical motion tender, Adnexal mass, Adnexal tenderness, Uterus enlarged - Back Back: Normal, Nontender. No: CVA tenderness - Neurological Neuro grossly intact: Yes Cognition: Normal Orientation: AAOx4 Jeimy Coma Scale Eye Opening: Spontaneous [place] Coma Scale Verbal: Oriented Jeimy Coma Scale Motor: Obeys Commands Jeimy Coma Scale Total: 15 Speech: Normal Motor strength normal: LUE, RUE, LLE, RLE Sensory: Normal - Skin Skin Temperature: Warm Skin Moisture: Dry Skin Color: Normal <EMERSON DWYER - Last Filed: 07/31/19 01:15> - Vital signs Vitals: Temp Pulse Resp BP Pulse Ox 97.5 F 106 H 22 H 125/82 97 07/30/19 20:22 07/30/19 20:22 07/30/19 20:22 07/30/19 20:22 07/30/19 20:22 Course - Laboratory Result Diagrams: 07/30/19 22:54 07/30/19 22:54 <EMERSON DWYER - Last Filed: 07/31/19 01:15> - Laboratory Result Diagrams: 07/30/19 22:54 07/30/19 22:54 <PRAKASH KIDD - Last Filed: 07/31/19 04:38> - Re-evaluation Re-evalutation: 07/31/19 01:16 Patient is resting comfortably with minimal discomfort noted on bimanual exam. Patient aware hCG is pending. Patient was signed out to Prakash ARBOLEDA all test results physical findings were reviewed. (EMERSON DWYER) 07/31/19 On my evaluation patient alert, well-appearing, has no complaints. Vital signs unremarkable. Ultrasound with no acute findings, hCG is negative, overall work- up is reassuring. I discussed with patient. She is starting her thyroid medication today, she will follow-up with SIGNWRITER for additional management of breakthrough bleeding on Depo-Provera. I discussed return precautions. Patient states appreciation and agreement. Stable and well-appearing at time of discharge. (PRAKASH KIDD) - Vital Signs Vital signs: Temp Pulse Resp BP Pulse Ox 98.8 F 85 16 105/72 100 07/31/19 02:46 07/31/19 02:46 07/31/19 02:46 07/31/19 02:46 07/31/19 02:46 - Laboratory Laboratory results interpreted by me: 07/30/19 07/30/19 07/30/19 22:27 22:54 22:54 Hgb 10.9 L Hct 31.3 L RDW 15.5 H Eos % (Auto) 6.1 H Sodium 136.6 L Chloride 108 H Glucose 150 H ALT 65 H TSH Urine Blood MODERATE H Ur Leukocyte Esterase TRACE H 07/30/19 22:54 Hgb Hct RDW Eos % (Auto) Sodium Chloride Glucose ALT TSH 5.51 H Urine Blood Ur Leukocyte Esterase Discharge <BASIA DWYERGABRIEL Koehler - Last Filed: 07/31/19 01:15> <PRAKASH KIDD - Last Filed: 07/31/19 04:38> - Discharge Clinical Impression: Menometrorrhagia Abdominal pain Qualifiers: Abdominal location: lower abdomen, unspecified Qualified Code(s): R10.30 - Lower abdominal pain, unspecified Condition: Stable Disposition: HOME, SELF-CARE Additional Instructions: Your ultrasound does not show any concerning findings, your general work-up is reassuring. Continue your thyroid medication, follow-up with SIGNWRITER for additional management of breakthrough bleeding (this can be influenced by your thyroid levels but also can be a symptom/side effect of Depo-Provera). Return for any concerning symptoms including severe worsening pain, passing out, vomiting, fever, or any other concerning symptoms. Referrals: [facility] [Provider Group] - Follow up as needed
[2019-07-31 02:47] VITALS: BP 105/72
== END 2019-07-31 02:46 | disposition home or self-care (01) ==
LOC: ER 20:15
DX: N92.1 Excessive and frequent menstruation with irregular cycle (principal); N39.0 Urinary tract infection, site not specified; R10.2 Pelvic and perineal pain; E03.9 Hypothyroidism, unspecified; R00.0 Tachycardia, unspecified; Z79.3 Long term (current) use of hormonal contraceptives
CPT/HCPCS: 36415; 76817; 80053; 81001; 83690; 84443; 84702; 85025; 86900; 86901; 93976; 99284

== ENCOUNTER → 2019-08-20 | Outpatient (CLI) | payer MEDICAID ==
--- NOTE | 2019-08-20 12:43 | WOMENS IMAGING REPORT ---
EXAM DESCRIPTION: U/S THYROID/ST TIS HEAD NECK IMAGES COMPLETED DATE/TIME: 08/20/2019 12:03 pm REASON FOR STUDY: E04.9 NONTOXIC GOITER, UNSPECIFIED E04.9 NONTOXIC GOITER, UNSPECIFIED COMPARISON: CT chest 07/24/2019 TECHNIQUE: Dynamic and static montoya-scale images acquired of the thyroid gland. Selected additional c olor/power Doppler images recorded. All images stored to PACS. LIMITATIONS: None. FINDINGS: RIGHT LOBE: Normal size, 4 x 1.5 x 1.3 cm Homogeneous echotexture. No cystic or solid ma sses. LEFT LOBE: Normal size, 3.3 x 1 x 1.3 cm. Homogeneous echotexture. No cystic or solid masses. ISTHMUS: Normal size. Homogeneous echotexture. No cystic or solid masses. OTHER: No other significant finding. IMPRESSION: NORMAL THYROID ULTRASOUND. TECHNICAL DOCUMENTATION: JOB ID: [id number] [email or web address]- All Rights Reserved Reading location - IP/workstation name: [email or web address]
== END ==
LOC: WI 10:50
PROVIDERS: ATTEND Nurse Practitioner Family
DX: E04.9 Nontoxic goiter, unspecified (principal)
CPT/HCPCS: 76536

== ENCOUNTER 2019-08-28 00:56 | Emergency (ER) | payer MEDICAID ==
[2019-08-28] MEDS ORDERED: LORAZEPAM 1 MG TABLET PO ONE (01:53)
--- NOTE | 2019-08-28 01:55 | ER Document Report ---
ED General - General Chief Complaint: Chest Tightness Stated Complaint: CHEST TIGHTNESS/THROAT FEELS TIGHT Time Seen by Provider: 08/28/19 01:36 Primary Care Provider: NIKKO MENDES NP [Primary Care Provider] - Follow up as needed Notes: Patient is a 29-year-old female that comes emergency department for chief compla int of an episode several hours ago for patient felt sudden tightness in her chest, she states she felt like the tightness radiated up into her throat, she states that this persisted for about 20 minutes before it resolved. Patient states that she became very anxious and concerned and came in for evaluation as a result. Patient has a past medical history of seizure disorder, hypothyroidism, bipolar disorder/panic attacks, and she is on Depo-Provera. She also states she was recently started on propanolol because of episodes of tachycardia and this helps. She states she has been taking her medications. She denies cough, fever, abdominal pain, flank pain, dizziness, nausea, vomiting, passing out. She states she has had similar symptoms like today previously but she wants to be checked out. She denies smoking, alcohol, recreational drugs. TRAVEL OUTSIDE OF THE [place] IN LAST 30 DAYS: No - Related Data Allergies/Adverse Reactions: haloperidol [From Haldol] Adverse Reaction (Verified 07/30/19 20:49) haloperidol lactate [From Haldol] Adverse Reaction (Verified 07/30/19 20:49) prochlorperazine edisylate [From Compazine] Adverse Reaction (Verified 07/30/19 20:49) prochlorperazine maleate [From Compazine] Adverse Reaction (Verified 07/30/19 20:49) Past Medical History - General Information source: Patient - Social History Smoking Status: Never Smoker Frequency of alcohol use: None Drug Abuse: None Lives with: Family Family History: Reviewed & Not Pertinent, CVA, DM, Hypertension, Malignancy Neurological Medical History: Reports: Hx Migraine, Hx Seizures - No diagnosed seizure disorder (January 2017) Endocrine Medical History: Reports: Hx Hypothyroidism. Denies: Hx Diabetes Mellitus Type 1, Hx Diabetes Mellitus Type 2 Renal/ Medical History: Denies: Hx Peritoneal Dialysis Psychiatric Medical History: Reports: Hx Anxiety Past Surgical History: Reports: Hx Section - x 2, Hx Tubal Ligation - Immunizations Immunizations up to date: Yes Hx Diphtheria, Pertussis, Tetanus Vaccination: Yes Review of Systems - Review of Systems Constitutional: See HPI EENT: See HPI Cardiovascular: See HPI Respiratory: See HPI Gastrointestinal: No symptoms reported Genitourinary: No symptoms reported Female Genitourinary: No symptoms reported Musculoskeletal: No symptoms reported Skin: No symptoms reported Hematologic/Lymphatic: No symptoms reported Neurological/Psychological: See HPI Physical Exam - Vital signs Vitals: Temp Pulse Resp BP Pulse Ox 98.6 F 77 16 133/63 H 99 08/28/19 01:12 08/28/19 01:12 08/28/19 01:12 08/28/19 01:12 08/28/19 01:12 - Notes Notes: GENERAL: Alert and interactive, speaks rapidly, appears somewhat anxious HEAD: Normocephalic, atraumatic. EYES: Pupils equal, round, and reactive to light. Extraocular movements intact. ENT: Oral mucosa moist, tongue midline. Oropharynx unremarkable. Airway patent. NECK: Full range of motion. Supple. Trachea midline. No lymphadenopathy. LUNGS: Clear to auscultation bilaterally, no wheezes, rales, or rhonchi. No respiratory distress. Non-tender chest wall. HEART: Regular rate and rhythm. No murmur ABDOMEN: Soft, non-tender. Non-distended. Bowel sounds present in all 4 quadrants. GENITOURINARY: Deferred EXTREMITIES: Moves all 4 extremities spontaneously. No edema, normal radial and dorsalis pedis pulses bilaterally. No cyanosis. BACK: no cervical, thoracic, lumbar midline tenderness. No saddle anesthesia, normal distal neurovascular exam. Moves all extremities in full range of motion. NEUROLOGICAL: Alert and oriented x3. Normal speech. Cranial nerves II through XII grossly intact. Strength 5/5 in all extremities. PSYCH: Speaks rapidly, appears somewhat anxious but makes good eye contact and does not appear to be responding to internal stimuli SKIN: Warm, dry, normal turgor. No rashes or lesions noted. Course - Re-evaluation Re-evalutation: Patient is talkative and well-appearing other than appearing mildly anxious. She was treated with Ativan. On reevaluation patient is much more calm. She is not tachycardic, hypoxic, and her physical exam is unremarkable. CBC, chemistry unremarkable, hCG is negative, troponin negative, chest x-ray and EKG are unremarkable. PERC score is negative. Patient actually had a CTA of the chest within the past month and this was negative for acute findings. Josie colon presentation and descriptions are most consistent with panic attack. Patient states she sleeps poorly and has had increased poor sleep recently, I suspect this is contributing to this. I did discuss this with patient. Patient states she actually has excellent care and follow-up including referral to endocrinology for her thyroid, currently she is taking propanolol for this. Patient also has good psychiatric follow-up. She denies SI or HI. She has no complaints on my reevaluation, she states appreciation and that she is ready to go home. Discussed return precautions. Patient states understanding and agreement. - Vital Signs Vital signs: Temp Pulse Resp BP Pulse Ox 98.0 F 80 20 104/57 L 97 08/28/19 03:17 08/28/19 03:43 08/28/19 03:43 08/28/19 03:43 08/28/19 03:43 - Laboratory Result Diagrams: 08/28/19 02:17 08/28/19 02:17 Laboratory results interpreted by me: 08/28/19 02:17 Hgb 11.3 L Hct 32.4 L RDW 15.7 H - EKG Interpretation by Me Additional EKG results interpreted by me: EKG shows sinus rhythm at a rate of 84, QTc 421, normal axis. No T wave inversions or ST segment changes in consecutive leads Discharge - Discharge Clinical Impression: Chest tightness, Shortness of breath, Panic attack Condition: Stable Disposition: HOME, SELF-CARE Additional Instructions: Your evaluation and work-up tonight do not show any concerning findings. Your symptoms and insomnia are very suggestive that this was a panic attack. Please discuss your difficulty sleeping and your panic attacks with your primary care provider for additional management. Consider [id number] medication such as melatonin 10 mg nightly to help with insomnia as well. See additional instructions below. Return for any concerning or worsening symptoms. Panic Attack The cause of panic attacks is unknown. Symptoms can include chest pain, shortness of breath, palpitations, sweats, and a sense of smothering or impending doom. In time, the panic attacks can lead to generalized anxiety and phobias. Because the symptoms can mimic heart attack, pulmonary embolism, and other serious diseases, the physician has evaluated you for these conditions. There is no evidence of a serious problem. An acute panic attack usually goes away by itself without treatment. A severe attack can be treated with medicine to calm you. Long-term, antidepressant medicines may help prevent attacks. Counselling can also be very beneficial in dealing with panic attacks. Panic attacks are less likely if you are getting regular exercise, proper diet, and plenty of sleep. It's normal for panic attacks to cause many frightening symptoms. However, you should call or return if your symptoms change significantly or if you are worsening. Referrals: NIKKO MENDES NP [Primary Care Provider] - Follow up as needed
--- NOTE | 2019-08-28 02:34 | RADIOLOGY REPORT (SQ) ---
CLINICAL INDICATION: chest tightness. TECHNIQUE: A single portable AP view was obtained of the chest at 0212 hours. COMPARISON: July 24, 2019. FINDINGS: The cardiomediastinal silhouette is normal. The lungs are grossly clear. No evidence of effusion or pneumothorax. The visualized bones are unremarkable. IMPRESSION: No evidence of active intrathoracic disease.
[2019-08-28 02:44] LABS: ABSOLUTE BASOPHILS # (AUTO) 0.1 10^3/uL (0.0-0.2); ABSOLUTE EOSINOPHILS # (AUTO) 0.5 10^3/uL (0.0-0.6); ABSOLUTE LYMPHOCYTES (AUTO) 2.2 10^3/uL (0.5-4.7); ABSOLUTE MONOCYTES (AUTO) 0.8 10^3/uL (0.1-1.4); ABSOLUTE NEUT (AUTO) 4.8 10^3/uL (1.7-8.2); BASOPHILS % (AUTO) 0.6 % (0-2); EOSINOPHILS % (AUTO) 5.8 % (0-6); HEMATOCRIT 32.4 % (36.0-47.0); HEMOGLOBIN 11.3 g/dL (12.0-15.5); LYMPHOCYTES % (AUTO) 26.7 % (13-45); MEAN CORPUSCULAR HEMOGLOBIN 28.1 pg (27.0-33.4); MEAN CORPUSCULAR HGB CONC 34.7 g/dL (32.0-36.0); MEAN CORPUSCULAR VOLUME 81 fl (80-97); MONOCYTES % (AUTO) 9.6 % (3-13); PLATELET COUNT 347 10^3/uL (150-450); RED BLOOD COUNT 4.01 10^6/uL (3.72-5.28); RED CELL DISTRIBUTION WIDTH 15.7 % (11.5-14.0); SEGMENTED NEUTROPHILS % (AUTO) 57.3 % (42-78); TOTAL CELLS COUNTED % (AUTO) 100 %; WHITE BLOOD COUNT 8.4 10^3/uL (4.0-10.5)
[2019-08-28 03:04] LABS: ALBUMIN 3.8 g/dL (3.5-5.0); ALKALINE PHOSPHATASE 40 U/L (38-126); ANION GAP 5 (5-19); ASPARTATE AMINO TRANSFERASE 30 U/L (14-36); BILIRUBIN,TOTAL 0.3 mg/dL (0.2-1.3); BLOOD UREA NITROGEN 16 mg/dL (7-20); CALCIUM 9.5 mg/dL (8.4-10.2); CARBON DIOXIDE 27 mmol/L (22-30); CHLORIDE 105 mmol/L (98-107); GLUCOSE 90 mg/dL (75-110); POTASSIUM 4.8 mmol/L (3.6-5.0)
[2019-08-28 03:44] VITALS: BP 104/57
--- NOTE | 2019-08-28 12:45 | EKG REPORT ---
SEVERITY:- NORMAL ECG - SINUS RHYTHM : Confirmed by: Rajani Tamez 28-Aug-2019 12:44:45
== END 2019-08-28 04:15 | disposition home or self-care (01) ==
LOC: ER 00:56
DX: R07.89 Other chest pain (principal); F41.0 Panic disorder [episodic paroxysmal anxiety]; R06.02 Shortness of breath; R09.89 Other specified symptoms and signs involving the circulatory and respiratory systems; E03.9 Hypothyroidism, unspecified; Z98.51 Tubal ligation status
CPT/HCPCS: 36415; 71045; 80053; 84484; 84703; 85025; 93005; 93010; 99284

== ENCOUNTER 2019-09-27 14:20 | Emergency (ER) | payer MEDICAID | END 2019-09-27 19:10 | disposition left against medical advice (07) | LOC: ER 14:20 | DX: Z53.21 Procedure and treatment not carried out due to patient leaving prior to being seen by health care provider (principal) ==

== ENCOUNTER 2019-10-16 10:55 | Emergency (ER) | payer MEDICAID ==
--- NOTE | 2019-10-16 11:03 | ER Document Report ---
ED Medical Screen (RME) - General Chief Complaint: Other Stated Complaint: FEELING TIRED, NO ENERGY Time Seen by Provider: 10/16/19 11:02 Primary Care Provider: NIKKO MENDES NP [Primary Care Provider] - Follow up as needed Mode of Arrival: Ambulatory Information source: Patient Notes: 29-year-old female presented to ED for complaint of fatigue headaches neck pain back pain and increase in anxiety since she started on her new anxiety medicines. She states she does not know if she is reacting to the medicine or what is going on. She states her last menstrual period was October 06. She is alert oriented respirations regular nonlabored speaking in full sentences. I have greeted and performed a rapid initial assessment of this patient. A comprehensive ED assessment and evaluation of the patient, analysis of test results and completion of medical decision making process will be conducted by an additional ED providers. TRAVEL OUTSIDE OF THE [place] IN LAST 30 DAYS: No - Related Data Allergies/Adverse Reactions: haloperidol [From Haldol] Adverse Reaction (Verified 07/30/19 20:49) haloperidol lactate [From Haldol] Adverse Reaction (Verified 07/30/19 20:49) prochlorperazine edisylate [From Compazine] Adverse Reaction (Verified 07/30/19 20:49) prochlorperazine maleate [From Compazine] Adverse Reaction (Verified 07/30/19 20:49) Past Medical History - Social History Family history: Other - anemia - Past Medical History Cardiac Medical History: Pulmonary Medical History: Neurological Medical History: Reports: Hx Migraine, Hx Seizures - No diagnosed seizure disorder (January 2017) Endocrine Medical History: Reports: Hx Hypothyroidism. Denies: Hx Diabetes Mellitus Type 1, Hx Diabetes Mellitus Type 2 Renal/ Medical History: Denies: Hx Peritoneal Dialysis Psychiatric Medical History: Reports: Hx Anxiety Past Surgical History: Reports: Hx Section - x 2, Hx Tubal Ligation - Immunizations Immunizations up to date: Yes Hx Diphtheria, Pertussis, Tetanus Vaccination: Yes Doctor's Discharge - Discharge Referrals: NIKKO MENDES NP [Primary Care Provider] - Follow up as needed
[2019-10-16] MEDS ORDERED: NORMAL SALINE 1000 ML 1,000 ML IV ONE (11:04)
[2019-10-16 11:33] LABS: ABSOLUTE BASOPHILS # (AUTO) 0.1 10^3/uL (0.0-0.2); ABSOLUTE EOSINOPHILS # (AUTO) 0.5 10^3/uL (0.0-0.6); ABSOLUTE LYMPHOCYTES (AUTO) 2.1 10^3/uL (0.5-4.7); ABSOLUTE MONOCYTES (AUTO) 0.4 10^3/uL (0.1-1.4); ABSOLUTE NEUT (AUTO) 4.5 10^3/uL (1.7-8.2); BASOPHILS % (AUTO) 0.7 % (0-2); HEMATOCRIT 34.3 % (36.0-47.0); HEMOGLOBIN 11.8 g/dL (12.0-15.5); LYMPHOCYTES % (AUTO) 27.8 % (13-45); MEAN CORPUSCULAR HEMOGLOBIN 26.9 pg (27.0-33.4); MEAN CORPUSCULAR HGB CONC 34.3 g/dL (32.0-36.0); MEAN CORPUSCULAR VOLUME 78 fl (80-97); MONOCYTES % (AUTO) 4.9 % (3-13); PLATELET COUNT 367 10^3/uL (150-450); RED BLOOD COUNT 4.38 10^6/uL (3.72-5.28); SEGMENTED NEUTROPHILS % (AUTO) 59.6 % (42-78); TOTAL CELLS COUNTED % (AUTO) 100 %; WHITE BLOOD COUNT 7.5 10^3/uL (4.0-10.5)
[2019-10-16 11:36] LABS: APPEARANCE,URINE CLEAR; BILIRUBIN,URINE NEGATIVE (NEGATIVE); COLOR,URINE STRAW; GLUCOSE, URINE NEGATIVE (NEGATIVE); KETONES,URINE NEGATIVE (NEGATIVE); LEUKOCYTE ESTERASE,URINE NEGATIVE (NEGATIVE); NITRITE,URINE NEGATIVE (NEGATIVE); PROTEIN,URINE NEGATIVE (NEGATIVE); URINE SPECIFIC GRAVITY 1.004; UROBILINOGEN,URINE NEGATIVE mg/dL (<2.0)
[2019-10-16 11:52] LABS: URINE AMPHETAMINES SCREEN NEGATIVE; URINE BARBITURATES SCREEN NEGATIVE; URINE BENZODIAZEPINES SCREEN NEGATIVE; URINE COCAINE SCREEN NEGATIVE; URINE MARIJUANA (THC) SCREEN NEGATIVE; URINE METHADONE SCREEN NEGATIVE; URINE PHENCYCLIDINE SCREEN NEGATIVE
[2019-10-16 11:56] LABS: ALBUMIN 4.6 g/dL (3.5-5.0); ALKALINE PHOSPHATASE 52 U/L (38-126); ANION GAP 7 (5-19); ASPARTATE AMINO TRANSFERASE 23 U/L (14-36); BILIRUBIN,TOTAL 0.5 mg/dL (0.2-1.3); BLOOD UREA NITROGEN 8 mg/dL (7-20); CALCIUM 9.7 mg/dL (8.4-10.2); CARBON DIOXIDE 23 mmol/L (22-30); CHLORIDE 106 mmol/L (98-107); GLUCOSE 101 mg/dL (75-110); POTASSIUM 4.4 mmol/L (3.6-5.0)
--- NOTE | 2019-10-16 12:02 | ER Document Report ---
ED General - General Chief Complaint: Doesn't Feel Right Stated Complaint: FEELING TIRED, NO ENERGY Time Seen by Provider: 10/16/19 11:02 Primary Care Provider: NIKKO MENDES NP [Primary Care Provider] - Follow up as needed Mode of Arrival: Ambulatory Notes: Patient is a 29-year-old -[place] female with a history of depression, anxiety who presents to the emergency department with a chief complaint of fatigue. She states she was told recently that her anxiety is so severe that s he has muscle tension in her neck and back. She was sent to physical therapy for torticollis. She was prescribed Flexeril 10 mg but states she is not taken because she was concerned whether or not it was safe to take with her other medicines. She reports using multiple supplements [id number]. States that she was recently told her vitamin D and B12 were deficient. She is started medicines for that. She has had abnormal TSH in the past was previously on Synthroid but reported that her primary doctor told her her thyroid was fine based on normal ultrasound and to stop the medicine. Patient is pending referral to an manufacturing recruiter and is supposed to have a brain MRI but is awaiting this. She denies any acute symptoms. States she was concerned given the anxiety, weakness with a history of anemia and questionable thyroid studies. TRAVEL OUTSIDE OF THE [place] IN LAST 30 DAYS: No - Related Data Allergies/Adverse Reactions: haloperidol [From Haldol] Adverse Reaction (Verified 07/30/19 20:49) haloperidol lactate [From Haldol] Adverse Reaction (Verified 07/30/19 20:49) prochlorperazine edisylate [From Compazine] Adverse Reaction (Verified 07/30/19 20:49) prochlorperazine maleate [From Compazine] Adverse Reaction (Verified 07/30/19 20:49) Home Medications: vitamin, black seed oil, b12, vitamin d2, magnesium, sertraline, algae tablets, trokendi xr, Past Medical History - General Information source: Patient - Social History Smoking Status: Never Smoker Chew tobacco use (# tins/day): No Frequency of alcohol use: Occasional Drug Abuse: None Family History: Reviewed & Not Pertinent, CVA, DM, Hypertension, Malignancy - Past Medical History Cardiac Medical History: Pulmonary Medical History: Neurological Medical History: Reports: Hx Migraine, Hx Seizures - No diagnosed seizure disorder (January 2017) Endocrine Medical History: Reports: Hx Hypothyroidism. Denies: Hx Diabetes Mellitus Type 1, Hx Diabetes Mellitus Type 2 Renal/ Medical History: Denies: Hx Peritoneal Dialysis Psychiatric Medical History: Reports: Hx Anxiety, Hx Depression - anxiety Past Surgical History: Reports: Hx Section - x 2, Hx Tubal Ligation - Immunizations Immunizations up to date: Yes Hx Diphtheria, Pertussis, Tetanus Vaccination: Yes Review of Systems - Review of Systems Constitutional: denies: Fever EENT: denies: Throat pain Cardiovascular: denies: Palpitations Respiratory: denies: Short of breath Gastrointestinal: denies: Abdominal pain Genitourinary: denies: Pain Female Genitourinary: denies: Vaginal discharge Musculoskeletal: Muscle pain, Muscle stiffness Skin: denies: Change in color Hematologic/Lymphatic: denies: Easy bruising Neurological/Psychological: Weakness Physical Exam - Vital signs Vitals: Temp Pulse Resp BP Pulse Ox 98.9 F 91 18 132/79 H 100 10/16/19 11:01 10/16/19 11:01 10/16/19 11:01 10/16/19 11:01 10/16/19 11:01 - General General appearance: Appears well, Alert In distress: None - HEENT Head: Normocephalic, Atraumatic Eyes: Normal Conjunctiva: Normal Extraocular movements intact: Yes Eyelashes: Normal Pupils: PERRL Ears: Normal External canal: Normal Tympanic membrane: Normal Nasal: Normal Mouth/Lips: Normal Mucous membranes: Normal Pharynx: Normal Neck: Supple, Other - Tender to palpation bilateral trapezius, left worse than right. No: Thyromegally - Respiratory Respiratory status: No respiratory distress Chest status: Nontender Breath sounds: Normal Chest palpation: Normal - Cardiovascular Rhythm: Regular Heart sounds: Normal auscultation Murmur: No - Abdominal Inspection: Normal Distension: No distension Bowel sounds: Normal Tenderness: Nontender Organomegaly: No organomegaly - Extremities General upper extremity: Normal inspection, Nontender, Normal color, Normal ROM, Normal temperature General lower extremity: Normal inspection, Nontender, Normal color, Normal ROM, Normal temperature, Normal weight bearing. No: Ailyn's sign - Neurological Neuro grossly intact: Yes Cognition: Normal Orientation: AAOx4 Jeimy Coma Scale Eye Opening: Spontaneous Jeimy Coma Scale Verbal: Oriented Saucier Coma Scale Motor: Obeys Commands Saucier Coma Scale Total: 15 Speech: Normal Motor strength normal: LUE, RUE, LLE, RLE Sensory: Normal - Psychological Associated symptoms: Anxious - Skin Skin Temperature: Warm Skin Moisture: Dry Skin Color: Normal Course - Re-evaluation Re-evalutation: 10/16/19 12:47 Patient is slightly anemic. Her TSH is normal again today, she has had 2 previous abnormals. She has a history of falsely elevated hCG levels. This coupled with her symptoms of anxiety and fatigue is suspicious for pituitary etiology. Patient was supposed to have an MRI of the brain today but did not know she needed to remove her wig that is sewn in as well as her jewelry so she was rescheduled for next week. She has an MRI and an EEG scheduled for next week. She is pending endocrinology follow-up. We discussed this at great length. She has medicine from her doctor for muscle spasms in the neck as she is being treated for torticollis. We discussed the possibility of serotonin syndrome with Flexeril and sertraline, she will monitor and use with caution. We discussed the importance of her ongoing outpatient follow-up and advised that she return here or any ER immediately with any new, persistent or worsening symptoms. She verbalized understood and agreed. - Vital Signs Vital signs: Temp Pulse Resp BP Pulse Ox 98.9 F 91 18 132/79 H 100 10/16/19 11:30 10/16/19 11:01 10/16/19 11:01 10/16/19 11:01 10/16/19 11:01 - Laboratory Result Diagrams: 10/16/19 11:18 10/16/19 11:18 Laboratory results interpreted by me: 10/16/19 10/16/19 11:18 11:18 Hgb 11.8 L Hct 34.3 L MCV 78 L MCH 26.9 L RDW 17.0 H Eos % (Auto) 7.0 H Sodium 136.0 L Est GFR (MDRD) Non-Af 59 L Beta HCG, Quant 6.21 H Discharge - Discharge Clinical Impression: Elevated serum hCG Anemia Qualifiers: Anemia type: unspecified type Qualified Code(s): D64.9 - Anemia, unspecified Fatigue Qualifiers: Fatigue type: unspecified Qualified Code(s): R53.83 - Other fatigue Condition: Stable Disposition: HOME, SELF-CARE Instructions: Fatigue ([facility]) Additional Instructions: Please follow-up with your scheduled MRI and seek consultation with the manufacturing recruiter that you have been referred to sooner rather than later. Please return here or any ER immediately with any new, persistent or worsening symptoms. Referrals: NIKKO MENDES, AGRICULTURAL LOAN OFFICER [Primary Care Provider] - Follow up as needed
[2019-10-16 13:06] VITALS: BP 123/69
== END 2019-10-16 13:07 | disposition home or self-care (01) ==
LOC: ER 10:55
DX: D64.9 Anemia, unspecified (principal); R53.83 Other fatigue; M79.10 Myalgia, unspecified site; R53.1 Weakness; M43.6 Torticollis; R79.89 Other specified abnormal findings of blood chemistry; F41.9 Anxiety disorder, unspecified; F32.9 Major depressive disorder, single episode, unspecified; E53.8 Deficiency of other specified B group vitamins; E55.9 Vitamin D deficiency, unspecified; G43.909 Migraine, unspecified, not intractable, without status migrainosus; Z79.899 Other long term (current) drug therapy
CPT/HCPCS: 99283; 96360; 36415; 84702; 84443; 85025; 80053; 81001; 80307; J7030

== ENCOUNTER 2019-11-08 21:02 | Emergency (ER) | payer MEDICAID ==
--- NOTE | 2019-11-08 21:40 | ER Document Report ---
ED Medical Screen (RME) - General Chief Complaint: Chest Pain Stated Complaint: POSS SEIZURE/CHEST PAIN Time Seen by Provider: 11/08/19 21:31 Primary Care Provider: NIKKO MENDES NP [Primary Care Provider] - Follow up as needed Mode of Arrival: Ambulatory Information source: Patient Notes: 29-year-old female presents to ED for complaint of chest pain. She has had chest pain for a long time. She states a few weeks ago maybe 2 weeks ago she went to her primary care doctor stated she had chest pain and they thought it might be her anxiety and chronic muscle pain so they gave her muscle relaxers. She states today the pain is much sharper so she came to the emergency room to be evaluated. Her pulse was 116 on the EKG. We will get blood chest x-ray and have her evaluated in the emergency room by another physician. She does have a long history of anxiety. I have greeted and performed a rapid initial assessment of this patient. A comprehensive ED assessment and evaluation of the patient, analysis of test results and completion of medical decision making process will be conducted by an additional ED providers. TRAVEL OUTSIDE OF THE [place] IN LAST 30 DAYS: No - Related Data Allergies/Adverse Reactions: haloperidol [From Haldol] Adverse Reaction (Verified 07/30/19 20:49) haloperidol lactate [From Haldol] Adverse Reaction (Verified 07/30/19 20:49) prochlorperazine edisylate [From Compazine] Adverse Reaction (Verified 07/30/19 20:49) prochlorperazine maleate [From Compazine] Adverse Reaction (Verified 07/30/19 20:49) Past Medical History - General Information source: Patient - Social History Cigarette use (# per day): Yes Chew tobacco use (# tins/day): Yes Frequency of alcohol use: None Drug Abuse: None Lives with: Family Family history: Other - anemia. denies: CAD, CVA, DM, Hyperlipidemia, Hypertension - Past Medical History Cardiac Medical History: Reports: None Pulmonary Medical History: Reports: None EENT Medical History: Reports: None Neurological Medical History: Reports: Hx Migraine, Hx Seizures Endocrine Medical History: Reports: None Renal/ Medical History: Reports: None Malignancy Medical History: Reports: None GI Medical History: Reports: None Musculoskeltal Medical History: Reports Hx Musculoskeletal Deformity Skin Medical History: Reports None Psychiatric Medical History: Reports: Hx Anxiety, Hx Depression - anxiety Traumatic Medical History: Reports: None Infectious Medical History: Reports: None Past Surgical History: Reports: Hx Section - x 2, Hx Tubal Ligation - Immunizations Immunizations up to date: Yes Hx Diphtheria, Pertussis, Tetanus Vaccination: No Physical Exam - Vital signs Vitals: Temp Pulse Resp BP Pulse Ox 98.4 F 126 H 20 113/68 100 11/08/19 21:11 11/08/19 21:11 11/08/19 21:11 11/08/19 21:11 11/08/19 21:11 Course - Vital Signs Vital signs: Temp Pulse Resp BP Pulse Ox 98.4 F 126 H 20 113/68 100 11/08/19 21:11 11/08/19 21:11 11/08/19 21:11 11/08/19 21:11 11/08/19 21:11 Doctor's Discharge - Discharge Referrals: NIKKO MENDES NP [Primary Care Provider] - Follow up as needed
[2019-11-08 22:17] LABS: ABSOLUTE EOSINOPHILS # (AUTO) 0.2 10^3/uL (0.0-0.6); ABSOLUTE LYMPHOCYTES (AUTO) 2.1 10^3/uL (0.5-4.7); ABSOLUTE MONOCYTES (AUTO) 0.3 10^3/uL (0.1-1.4); ABSOLUTE NEUT (AUTO) 2.4 10^3/uL (1.7-8.2); BASOPHILS % (AUTO) 0.7 % (0-2); EOSINOPHILS % (AUTO) 3.8 % (0-6); HEMATOCRIT 36.8 % (36.0-47.0); HEMOGLOBIN 12.3 g/dL (12.0-15.5); LYMPHOCYTES % (AUTO) 41.2 % (13-45); MEAN CORPUSCULAR HEMOGLOBIN 25.8 pg (27.0-33.4); MEAN CORPUSCULAR HGB CONC 33.5 g/dL (32.0-36.0); MEAN CORPUSCULAR VOLUME 77 fl (80-97); MONOCYTES % (AUTO) 6.9 % (3-13); PLATELET COUNT 362 10^3/uL (150-450); RED BLOOD COUNT 4.76 10^6/uL (3.72-5.28); RED CELL DISTRIBUTION WIDTH 18.4 % (11.5-14.0); SEGMENTED NEUTROPHILS % (AUTO) 47.4 % (42-78); TOTAL CELLS COUNTED % (AUTO) 100 %
--- NOTE | 2019-11-08 22:25 | RADIOLOGY REPORT (SQ) ---
CLINICAL INDICATION: Chest pain. TECHNIQUE: PA and lateral views were obtained of the chest COMPARISON: August 28, 2019, portable. FINDINGS: The cardiomediastinal silhouette is normal. The lungs are grossly clear. No evidence of effusion or pneumothorax. Visualized bones are unremarkable. . IMPRESSION: No evidence of active intrathoracic disease .
[2019-11-08 22:35] LABS: ALBUMIN 4.6 g/dL (3.5-5.0); ALKALINE PHOSPHATASE 49 U/L (38-126); ANION GAP 11 (5-19); ASPARTATE AMINO TRANSFERASE 24 U/L (14-36); BILIRUBIN,TOTAL 0.4 mg/dL (0.2-1.3); BLOOD UREA NITROGEN 12 mg/dL (7-20); CALCIUM 9.5 mg/dL (8.4-10.2); CARBON DIOXIDE 19 mmol/L (22-30); CHLORIDE 112 mmol/L (98-107); CREATINE KINASE 59 U/L (30-135); GLUCOSE 86 mg/dL (75-110); POTASSIUM 4.6 mmol/L (3.6-5.0); TOTAL PROTEIN 8.5 g/dL (6.3-8.2)
--- NOTE | 2019-11-08 23:49 | EKG REPORT ---
SEVERITY:- ABNORMAL ECG - SINUS TACHYCARDIA LEFT ATRIAL ABNORMALITY : Confirmed by: Samir Nassar MD 08-Nov-2019 23:48:39
[2019-11-09 00:30] VITALS: BP 106/78
[2019-11-09 00:52] LABS: APPEARANCE,URINE SLIGHTLY-CLOUDY; BILIRUBIN,URINE NEGATIVE (NEGATIVE); COLOR,URINE YELLOW; GLUCOSE, URINE NEGATIVE (NEGATIVE); KETONES,URINE NEGATIVE (NEGATIVE); LEUKOCYTE ESTERASE,URINE TRACE (NEGATIVE); NITRITE,URINE NEGATIVE (NEGATIVE); PROTEIN,URINE NEGATIVE (NEGATIVE); URINE SPECIFIC GRAVITY 1.018; UROBILINOGEN,URINE NEGATIVE mg/dL (<2.0)
[2019-11-09 01:05] LABS: URINE AMPHETAMINES SCREEN NEGATIVE; URINE BARBITURATES SCREEN NEGATIVE; URINE BENZODIAZEPINES SCREEN UNCONFIRMED POSITIVE; URINE COCAINE SCREEN NEGATIVE; URINE MARIJUANA (THC) SCREEN NEGATIVE; URINE METHADONE SCREEN NEGATIVE; URINE PHENCYCLIDINE SCREEN NEGATIVE
--- NOTE | 2019-11-09 01:30 | ER Document Report ---
ED Cardiac - General Chief Complaint: Chest Pain Stated Complaint: POSS SEIZURE/CHEST PAIN Time Seen by Provider: 11/08/19 21:31 Primary Care Provider: NIKKO MENDES SKATE HOP [NURSE PRACTITIONER] - Follow up as needed Mode of Arrival: Ambulatory Notes: CHIEF COMPLAINT: Chest pain for weeks HPI: 29-year-old female with history of anxiety presenting for anterior chest pain for weeks. Hurts to take a deep breath in. Hurts to palpate. Hurts to move. Patient states that she saw her PCP a week ago for same complaint and was placed on muscle relaxers but continued to have the discomfort so decided to come in for evaluation tonight. No fever or cough. No acute shortness of breath. No leg pain. Denies control use. States that she always seems to have discomfort across the anterior chest and shoulders from both her anxiety and stress. ROS: See HPI - all other systems were reviewed and are otherwise negative Constitutional: no fever Eyes: no drainage, no blurred vision ENT: no runny nose, no sore throat Cardiovascular: + chest pain Resp: no SOB, no cough GI: no vomiting, no diarrhea, no abdominal pain : no dysuria Integumentary: no rash Allergy: no hives Musculoskeletal: no extremity pain or swelling Neurological: no numbness/tingling, no weakness MEDICATIONS: I agree with the patient medications as charted by the RN. ALLERGIES: I agree with the allergies as charted by the RN. PAST MEDICAL HISTORY/PAST SURGICAL HISTORY: Reviewed and agree as charted by RN. SOCIAL HISTORY: Reviewed and agree as charted by RN. FAMILY HISTORY: No significant familial comorbid conditions directly related to patient complaint EXAM: Reviewed vital signs as charted by RN. CONSTITUTIONAL: Alert and oriented and responds appropriately to questions. Well-appearing; well-nourished HEAD: Normocephalic; atraumatic EYES: PERRL; Conjunctivae clear, sclerae non-icteric ENT: normal nose; no rhinorrhea; moist mucous membranes; pharynx without lesions noted, no uvula edema or deviation, no tonsillar hypertrophy, phonation normal NECK: Supple without meningismus; non-tender; no cervical lymphadenopathy, no masses CARD: RRR; no murmurs, no clicks, no rubs, no gallops; symmetric distal pulses RESP: Normal chest excursion without splinting or tachypnea; breath sounds clear and equal bilaterally; no wheezes, no rhonchi, no rales, pulse oximetry 98% on room air not hypoxic. There is tenderness on palpation over the anterior chest wall ABD/GI: Normal bowel sounds; non-distended; soft, non-tender, no rebound, no guarding; no palpable organomegaly or masses. BACK: The back appears normal and is non-tender to palpation, there is no CVA tenderness EXT: Normal ROM in all joints; non-tender to palpation; no cyanosis, no effusions, no edema SKIN: Normal color for age and race; warm; dry; good turgor; no acute lesions noted NEURO: Moves all extremities equally; Motor and sensory function intact PSYCH: The patient's mood and manner are appropriate. Grooming and personal hygiene are appropriate. MDM: 29-year-old female with anxiety presenting for anterior chest wall pain for several weeks. Reports pain with deep breathing but also has reproducible pain suggesting a musculoskeletal issue. PERC negative. Initial screening work-up by triage process negative for acute findings. EKG initially showed a sinus tachycardia of 116 but he but on my evaluation of the patient know that she has calmed down her heart rate is actually 94. Will place patient on anti-infla mmatory given the reproducible pain for several weeks and also refer to cardiology for outpatient evaluation TRAVEL OUTSIDE OF THE [place] IN LAST 30 DAYS: No - Related Data Allergies/Adverse Reactions: haloperidol [From Haldol] Adverse Reaction (Verified 07/30/19 20:49) haloperidol lactate [From Haldol] Adverse Reaction (Verified 07/30/19 20:49) prochlorperazine edisylate [From Compazine] Adverse Reaction (Verified 07/30/19 20:49) prochlorperazine maleate [From Compazine] Adverse Reaction (Verified 07/30/19 20:49) Past Medical History - General Information source: Patient - Social History Smoking Status: Never Smoker Cigarette use (# per day): Yes Chew tobacco use (# tins/day): Yes Frequency of alcohol use: None Drug Abuse: None Lives with: Family Family History: Reviewed & Not Pertinent, CVA, DM, Hypertension, Malignancy Patient has homicidal ideation: No - Past Medical History Cardiac Medical History: Reports: None Pulmonary Medical History: Reports: None EENT Medical History: Reports: None Neurological Medical History: Reports: Hx Migraine, Hx Seizures Endocrine Medical History: Reports: None Renal/ Medical History: Reports: None Malignancy Medical History: Reports: None GI Medical History: Reports: None Musculoskeletal Medical History: Reports Hx Musculoskeletal Deformity Skin Medical History: Reports None Psychiatric Medical History: Reports: Hx Anxiety, Hx Depression - anxiety Traumatic Medical History: Reports: None Infectious Medical History: Reports: None Past Surgical History: Reports: Hx Section - x 2, Hx Tubal Ligation - Immunizations Immunizations up to date: Yes Hx Diphtheria, Pertussis, Tetanus Vaccination: No Physical Exam - Vital signs Vitals: Temp Pulse Resp BP Pulse Ox 98.4 F 126 H 20 113/68 100 11/08/19 21:11 11/08/19 21:11 11/08/19 21:11 11/08/19 21:11 11/08/19 21:11 Course - Vital Signs Vital signs: Temp Pulse Resp BP Pulse Ox 98.4 F 126 H 14 106/78 98 11/08/19 21:11 11/08/19 21:11 11/09/19 00:18 11/09/19 00:17 11/09/19 00:18 - Laboratory Result Diagrams: 11/08/19 21:45 11/08/19 21:45 Laboratory results interpreted by me: 11/08/19 11/08/19 11/09/19 21:45 21:45 00:19 MCV 77 L MCH 25.8 L RDW 18.4 H Chloride 112 H Carbon Dioxide 19 L Est GFR (MDRD) Non-Af 55 L Total Protein 8.5 H Urine Blood LARGE H Ur Leukocyte Esterase TRACE H Discharge - Discharge Clinical Impression: Chest wall pain Condition: Stable Disposition: HOME, SELF-CARE Additional Instructions: Take Voltaren for the chest wall discomfort. Follow-up with cardiology for further evaluation and treatment call for appointment. He will likely need an outpatient stress test scheduled. Follow-up also with your PCP for further evaluation and management call for appointment. Return for worsening symptoms or concerns Prescriptions: Diclofenac Sodium [Voltaren 50 Mg Tablet.] 50 mg PO BID #20 tablet. Referrals: NIKKO MENDES NP [NURSE PRACTITIONER] - Follow up as needed TAVARES HOFFMAN MD [ACTIVE STAFF] - Follow up as needed
== END 2019-11-09 02:15 | disposition home or self-care (01) ==
LOC: ER 21:02
DX: R07.89 Other chest pain (principal); Z88.8 Allergy status to other drugs, medicaments and biological substances
CPT/HCPCS: 36415; 71046; 80053; 80307; 81001; 82550; 83690; 83735; 84484; 84703; 85025; 93005; 93010; 99285

== ENCOUNTER 2019-11-19 10:28 | Emergency (ER) | payer MEDICAID ==
[2019-11-19 10:52] VITALS: BP 94/64
[2019-11-19] MEDS ORDERED: NORMAL SALINE 1000 ML 1,000 ML IV ONE (11:45)
--- NOTE | 2019-11-19 11:46 | ER Document Report ---
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 Patient complains of headache, dizziness, nausea and dark urine. Patient also complains of generalized body aches. Patient denies any fever. Patient states that she just does not like to drink very much water and so she chronically has problems with dehydration. Patient reports a history of seizures, migraines, anxiety and Chiari malf ormation. I have greeted and performed a rapid initial assessment of this patient. A comprehensive ED assessment and evaluation of the patient, analysis of test results and completion of the medical decision making process will be conducted by additional ED providers. TRAVEL OUTSIDE OF THE [place] IN LAST 30 DAYS: No - Related Data Allergies/Adverse Reactions: haloperidol [From Haldol] Adverse Reaction (Verified 07/30/19 20:49) haloperidol lactate [From Haldol] Adverse Reaction (Verified 07/30/19 20:49) prochlorperazine edisylate [From Compazine] Adverse Reaction (Verified 07/30/19 20:49) prochlorperazine maleate [From Compazine] Adverse Reaction (Verified 07/30/19 20:49) Past Medical History - Social History Family history: Other - anemia. denies: CAD, CVA, DM, Hyperlipidemia, Hypertension - Past Medical History Cardiac Medical History: Pulmonary Medical History: Neurological Medical History: Reports: Hx Migraine, Hx Seizures Musculoskeltal Medical History: Reports Hx Musculoskeletal Deformity Psychiatric Medical History: Reports: Hx Anxiety, Hx Depression - anxiety Past Surgical History: Reports: Hx Section - x 2, Hx Tubal Ligation - Immunizations Immunizations up to date: Yes Hx Diphtheria, Pertussis, Tetanus Vaccination: No Physical Exam - Vital signs Vitals: Temp Pulse Resp BP Pulse Ox 98.2 F 77 16 94/64 L 100 11/19/19 10:50 11/19/19 10:50 11/19/19 10:50 11/19/19 10:50 11/19/19 10:50 - General General appearance: Appears well, Alert In distress: None - Neurological Neuro grossly intact: Yes Jeimy Coma Scale Eye Opening: Spontaneous [place] Coma Scale Verbal: Oriented [place] Coma Scale Motor: Obeys Commands [place] Coma Scale Total: 15 Course - Vital Signs Vital signs: Temp Pulse Resp BP Pulse Ox 98.2 F 77 16 94/64 L 100 11/19/19 10:50 11/19/19 10:50 11/19/19 10:50 11/19/19 10:50 11/19/19 10:50 Doctor's Discharge - Discharge Referrals: AROLDO LYNNE MD [Primary Care Provider] - Follow up as needed
[2019-11-19] MEDS ORDERED: ONDANSETRON HCL INJ/PF 4 MG/2 ML SDV IV ONE (12:35)
[2019-11-19 12:37] LABS: ABSOLUTE BASOPHILS # (AUTO) 0.1 10^3/uL (0.0-0.2); ABSOLUTE EOSINOPHILS # (AUTO) 0.2 10^3/uL (0.0-0.6); ABSOLUTE LYMPHOCYTES (AUTO) 1.6 10^3/uL (0.5-4.7); ABSOLUTE MONOCYTES (AUTO) 0.4 10^3/uL (0.1-1.4); ABSOLUTE NEUT (AUTO) 3.9 10^3/uL (1.7-8.2); BASOPHILS % (AUTO) 1.2 % (0-2); EOSINOPHILS % (AUTO) 3.5 % (0-6); HEMOGLOBIN 11.7 g/dL (12.0-15.5); LYMPHOCYTES % (AUTO) 25.9 % (13-45); MEAN CORPUSCULAR HEMOGLOBIN 26.7 pg (27.0-33.4); MEAN CORPUSCULAR HGB CONC 34.4 g/dL (32.0-36.0); MEAN CORPUSCULAR VOLUME 78 fl (80-97); PLATELET COUNT 342 10^3/uL (150-450); RED BLOOD COUNT 4.39 10^6/uL (3.72-5.28); RED CELL DISTRIBUTION WIDTH 18.9 % (11.5-14.0); SEGMENTED NEUTROPHILS % (AUTO) 63.4 % (42-78); TOTAL CELLS COUNTED % (AUTO) 100 %; WHITE BLOOD COUNT 6.1 10^3/uL (4.0-10.5)
[2019-11-19 13:07] LABS: ALBUMIN 4.3 g/dL (3.5-5.0); ALKALINE PHOSPHATASE 48 U/L (38-126); ANION GAP 5 (5-19); ASPARTATE AMINO TRANSFERASE 25 U/L (14-36); BILIRUBIN,DIRECT 0.3 mg/dL (0.0-0.4); BILIRUBIN,TOTAL 0.7 mg/dL (0.2-1.3); BLOOD UREA NITROGEN 9 mg/dL (7-20); CALCIUM 9.3 mg/dL (8.4-10.2); CARBON DIOXIDE 22 mmol/L (22-30); CHLORIDE 111 mmol/L (98-107); CREATINE KINASE 53 U/L (30-135); GLUCOSE 94 mg/dL (75-110); POTASSIUM 4.6 mmol/L (3.6-5.0); TOTAL PROTEIN 7.3 g/dL (6.3-8.2)
[2019-11-19 14:17] LABS: APPEARANCE,URINE SLIGHTLY-CLOUDY; BILIRUBIN,URINE NEGATIVE (NEGATIVE); COLOR,URINE YELLOW; GLUCOSE, URINE NEGATIVE (NEGATIVE); KETONES,URINE NEGATIVE (NEGATIVE); LEUKOCYTE ESTERASE,URINE TRACE (NEGATIVE); NITRITE,URINE NEGATIVE (NEGATIVE); PROTEIN,URINE NEGATIVE (NEGATIVE); UROBILINOGEN,URINE NEGATIVE mg/dL (<2.0)
[2019-11-19 14:21] LABS: ADD MANUAL MICROSCOPIC YES; BACTERIA,URINE TRACE /HPF; RBC,URINE 0-1 /HPF; WBC,URINE 0-1 /HPF
--- NOTE | 2019-11-19 14:38 | ER Document Report ---
ED General - General Chief Complaint: Headache Stated Complaint: HEADACHE/DIZZY Time Seen by Provider: 11/19/19 11:39 Primary Care Provider: AROLDO LYNNE MD [Primary Care Provider] - Follow up as needed Mode of Arrival: Ambulatory Information source: Patient TRAVEL OUTSIDE OF THE [place] IN LAST 30 DAYS: No - HPI Notes: Patient presents complaining of feeling dizzy and having generalized body aches. This been going on for 3 to 4 days. The body aches are diffuse and radiate throughout her body. They are intermittent. They are worse with movement and better with rest. She states she is recently seen by her AFTER SCHOOL PROGRAM COORDINATOR provider and after examining her urine her AFTER SCHOOL PROGRAM COORDINATOR provider told her she needed to come the emergency department for IV fluids. She denies any vomiting or diarrhea. She says she has not been drinking because she prefers to eat ice. - Related Data Allergies/Adverse Reactions: haloperidol [From Haldol] Adverse Reaction (Verified 11/19/19 12:34) haloperidol lactate [From Haldol] Adverse Reaction (Verified 11/19/19 12:34) prochlorperazine edisylate [From Compazine] Adverse Reaction (Verified 11/19/19 12:34) prochlorperazine maleate [From Compazine] Adverse Reaction (Verified 11/19/19 12:34) Past Medical History - General Information source: Patient - Social History Smoking Status: Current Some Day Smoker Frequency of alcohol use: None Drug Abuse: None Family History: Reviewed & Not Pertinent, CVA, DM, Hypertension, Malignancy Patient has homicidal ideation: No - Past Medical History Cardiac Medical History: Pulmonary Medical History: Neurological Medical History: Reports: Hx Migraine, Hx Seizures Musculoskeletal Medical History: Reports Hx Musculoskeletal Deformity Psychiatric Medical History: Reports: Hx Anxiety, Hx Depression - anxiety Past Surgical History: Reports: Hx Section - x 2, Hx Tubal Ligation - Immunizations Immunizations up to date: Yes Hx Diphtheria, Pertussis, Tetanus Vaccination: No Review of Systems - Review of Systems Constitutional: denies: Chills, Fever Respiratory: denies: Short of breath, Wheezing Gastrointestinal: denies: Diarrhea, Vomiting -: Yes All other systems reviewed and negative Physical Exam - Vital signs Vitals: Temp Pulse Resp BP Pulse Ox 98.2 F 77 16 94/64 L 100 11/19/19 10:50 11/19/19 10:50 11/19/19 10:50 11/19/19 10:50 11/19/19 10:50 Interpretation: Normal - General General appearance: Appears well, Alert - HEENT Head: Normocephalic, Atraumatic Eyes: Normal Pupils: PERRL - Respiratory Respiratory status: No respiratory distress Chest status: Nontender Breath sounds: Normal Chest palpation: Normal - Cardiovascular Rhythm: Regular Heart sounds: Normal auscultation Murmur: No - Abdominal Inspection: Normal Distension: No distension Bowel sounds: Normal Tenderness: Nontender Organomegaly: No organomegaly - Back Back: Normal, Nontender - Extremities General upper extremity: Normal inspection, Nontender, Normal color, Normal ROM, Normal temperature General lower extremity: Normal inspection, Nontender, Normal color, Normal ROM, Normal temperature, Normal weight bearing. No: Ailyn's sign - Neurological Neuro grossly intact: Yes Cognition: Normal Orientation: AAOx4 Jeimy Coma Scale Eye Opening: Spontaneous [place] Coma Scale Verbal: Oriented [place] Coma Scale Motor: Obeys Commands [place] Coma Scale Total: 15 Speech: Normal Motor strength normal: LUE, RUE, LLE, RLE Sensory: Normal - Psychological Associated symptoms: Normal affect, Normal mood - Skin Skin Temperature: Warm Skin Moisture: Dry Skin Color: Normal Course - Re-evaluation Re-evalutation: 11/19/19 14:35 Patient presents stating she is having body aches and feels that she is dehydrated. She states she has had decreased p.o. intake. Work-up was essentially unremarkable patient has not received fluids. Patient may have had some mild subclinical dehydration but there is no evidence of overt dehydration on exam or evaluation. Patient be discharged home to follow-up with her primary care physician. - Vital Signs Vital signs: Temp Pulse Resp BP Pulse Ox 98.2 F 77 16 94/64 L 100 11/19/19 10:50 11/19/19 10:50 11/19/19 10:50 11/19/19 10:50 11/19/19 10:50 - Laboratory Result Diagrams: 11/19/19 12:19 11/19/19 12:19 Laboratory results interpreted by me: 11/19/19 11/19/19 11/19/19 12:19 12:19 14:00 Hgb 11.7 L Hct 34.0 L MCV 78 L MCH 26.7 L RDW 18.9 H Chloride 111 H Ur Leukocyte Esterase TRACE H Discharge - Discharge Clinical Impression: Dehydration Condition: Stable Disposition: HOME, SELF-CARE Instructions: Antinausea Medication ([facility]), Dehydration ([facility]) Prescriptions: Ondansetron [Zofran Odt 4 mg Tablet] 1 - 2 tab PO Q4H PRN #15 tab.rapdis PRN Reason: For Nausea/Vomiting Forms: Return to Work Referrals: AROLDO LYNNE MD [Primary Care Provider] - Follow up as needed
== END 2019-11-19 14:52 | disposition home or self-care (01) ==
LOC: ER 10:28
DX: E86.0 Dehydration (principal); R63.0 Anorexia; R51 Headache; R42 Dizziness and giddiness; R11.0 Nausea; R39.198 Other difficulties with micturition; M79.10 Myalgia, unspecified site; Z88.8 Allergy status to other drugs, medicaments and biological substances; F17.200 Nicotine dependence, unspecified, uncomplicated
CPT/HCPCS: 99284; 96361; 96374; 36415; 82550; 84703; 85025; 80053; 81001; J2405; J7030

== ENCOUNTER 2020-01-02 20:55 | Emergency (ER) | payer MEDICAID ==
[2020-01-02] MEDS ORDERED: NORMAL SALINE 1000 ML 1,000 ML IV ONE (21:21)
[2020-01-02] MEDS ORDERED: METOCLOPRAMIDE HCL INJ/PF 10 MG/2 ML SDV IV ONE (21:21)
[2020-01-02] MEDS ORDERED: KETOROLAC TROMETHAMINE INJ/PF 30 MG/1 ML SDV IV ONE (21:21)
[2020-01-02] MEDS ORDERED: DIPHENHYDRAMINE HCL 50 MG/ML VIAL IV ONE (21:21)
--- NOTE | 2020-01-02 21:23 | ER Document Report ---
ED Medical Screen (RME) - General Chief Complaint: Headache Stated Complaint: HEADACHE Time Seen by Provider: 01/02/20 21:21 Primary Care Provider: AROLDO LYNNE MD [Primary Care Provider] - Follow up as needed Notes: HPI: History is obtained mostly from the mother as the patient is crying in the room. 29-year-old female with 20-year history of migraine headaches presenting with a headache to the vertex of the head today that she states is typical of her migraines when they are bad. Mother indicates patient has been vomiting multiple times at home. No fever or other recent illness. Patient attempted to take her Maxalt at home without resolution of her headache today. Patient does state that the headache is typical in its distribution but the pain is more severe PHYSICAL EXAMINATION: Patient is crying in the room. Limited exam secondary to patient cooperation and discomfort I have greeted and performed a rapid initial assessment of this patient. A comprehensive ED assessment and evaluation of the patient, analysis of test results and completion of medical decision making process will be conducted by an additional ED providers. TRAVEL OUTSIDE OF THE [place] IN LAST 30 DAYS: No - Related Data Allergies/Adverse Reactions: haloperidol [From Haldol] Adverse Reaction (Verified 11/19/19 12:34) haloperidol lactate [From Haldol] Adverse Reaction (Verified 11/19/19 12:34) prochlorperazine edisylate [From Compazine] Adverse Reaction (Verified 11/19/19 12:34) prochlorperazine maleate [From Compazine] Adverse Reaction (Verified 11/19/19 12:34) Past Medical History - Social History Chew tobacco use (# tins/day): No Frequency of alcohol use: None Drug Abuse: None Family history: Other - anemia. denies: CAD, CVA, DM, Hyperlipidemia, Hypertension - Past Medical History Cardiac Medical History: Pulmonary Medical History: Neurological Medical History: Reports: Hx Migraine, Hx Seizures Musculoskeltal Medical History: Reports Hx Musculoskeletal Deformity Psychiatric Medical History: Reports: Hx Anxiety, Hx Depression - anxiety Past Surgical History: Reports: Hx Section - x 2, Hx Tubal Ligation - Immunizations Immunizations up to date: Yes Hx Diphtheria, Pertussis, Tetanus Vaccination: No Physical Exam - Vital signs Vitals: Temp Pulse Resp BP Pulse Ox 98.9 F 98 18 119/80 99 01/02/20 21:00 01/02/20 21:00 01/02/20 21:00 01/02/20 21:00 01/02/20 21:00 Course - Vital Signs Vital signs: Temp Pulse Resp BP Pulse Ox 98.9 F 98 18 119/80 99 01/02/20 21:18 01/02/20 21:00 01/02/20 21:00 01/02/20 21:00 01/02/20 21:00 Doctor's Discharge - Discharge Referrals: AROLDO LYNNE MD [Primary Care Provider] - Follow up as needed
--- NOTE | 2020-01-02 21:53 | ER Document Report ---
ED General - General Chief Complaint: Headache Stated Complaint: HEADACHE Time Seen by Provider: 01/02/20 21:21 Primary Care Provider: AROLDO LYNNE MD [Primary Care Provider] - Follow up as needed Notes: Patient is a 29-year-old -Spanish female with a history of migraine headaches who presents to the emergency department today with a chief complaint of headache that began a couple hours prior to arrival. Patient reports this feels exactly like her migraine flares. Hits the top of the head. States that the pain is severe but like her previous migraines. She states is associated with photophobia, nausea and vomiting. Took Maxalt at home without any significant improvement. Denies any dizziness or neck pain. No chest pain or shortness of breath. No numbness, tingling or weakness. TRAVEL OUTSIDE OF THE [place] IN LAST 30 DAYS: No - Related Data Allergies/Adverse Reactions: haloperidol [From Haldol] Adverse Reaction (Verified 11/19/19 12:34) haloperidol lactate [From Haldol] Adverse Reaction (Verified 11/19/19 12:34) prochlorperazine edisylate [From Compazine] Adverse Reaction (Verified 11/19/19 12:34) prochlorperazine maleate [From Compazine] Adverse Reaction (Verified 11/19/19 12:34) Past Medical History - Social History Smoking Status: Never Smoker Chew tobacco use (# tins/day): No Frequency of alcohol use: None Drug Abuse: None Family History: Reviewed & Not Pertinent, CVA, DM, Hypertension, Malignancy Patient has homicidal ideation: No - Past Medical History Cardiac Medical History: Pulmonary Medical History: Neurological Medical History: Reports: Hx Migraine, Hx Seizures Musculoskeletal Medical History: Reports Hx Musculoskeletal Deformity Psychiatric Medical History: Reports: Hx Anxiety, Hx Depression - anxiety Past Surgical History: Reports: Hx Section - x 2, Hx Tubal Ligation - Immunizations Immunizations up to date: Yes Hx Diphtheria, Pertussis, Tetanus Vaccination: No Review of Systems - Review of Systems Constitutional: denies: Fever EENT: denies: Nose pain Cardiovascular: denies: Orthopnea Respiratory: denies: Hemoptysis Gastrointestinal: denies: Blood streaked bowels Genitourinary: denies: Frequency Female Genitourinary: denies: Post menopausal Musculoskeletal: denies: Neck pain Skin: denies: Lesions Hematologic/Lymphatic: denies: Blood clots Neurological/Psychological: denies: Loss of power Physical Exam - Vital signs Vitals: Temp Pulse Resp BP Pulse Ox 98.9 F 98 18 119/80 99 01/02/20 21:00 01/02/20 21:00 01/02/20 21:00 01/02/20 21:00 01/02/20 21:00 - General General appearance: Appears well, Alert In distress: None - HEENT Head: Normocephalic, Atraumatic Eyes: Normal Conjunctiva: Normal Extraocular movements intact: Yes Eyelashes: Normal Pupils: PERRL Ears: Normal External canal: Normal Tympanic membrane: Normal Nasal: Normal Mouth/Lips: Normal Mucous membranes: Normal Pharynx: Normal Neck: Normal, Supple - Respiratory Respiratory status: No respiratory distress Chest status: Nontender Breath sounds: Normal Chest palpation: Normal - Cardiovascular Rhythm: Regular Heart sounds: Normal auscultation - Neurological Neuro grossly intact: Yes Cognition: Normal Orientation: AAOx4 [place] Coma Scale Eye Opening: Spontaneous [place] Coma Scale Verbal: Oriented Jeimy Coma Scale Motor: Obeys Commands [place] Coma Scale Total: 15 Speech: Normal Cranial nerves: Normal Cerebellar coordination: Normal Motor strength normal: LUE, RUE, LLE, RLE Additional motor exam normals: Equal manager building. No: Pronator drift, Weakness Sensory: Normal - Psychological Associated symptoms: Normal affect, Normal mood - Skin Skin Temperature: Warm Skin Moisture: Dry Skin Color: Normal Course - Re-evaluation Re-evalutation: 01/03/20 00:08 Reevaluation at 12:08 AM: Patient's headache nearly completely resolved. She is watching TV smiling and reports being much better. She has a follow-up appointment next week with her neurologist and she will discuss treatment options. Counseled her regarding the importance of outpatient follow-up and advised that she return here any ER immediately with any new, persistent or worsening symptoms. She verbalized understood and agreed. - Vital Signs Vital signs: Temp Pulse Resp BP Pulse Ox 98.9 F 98 18 119/80 99 01/02/20 21:18 01/02/20 21:00 01/02/20 21:00 01/02/20 21:00 01/02/20 21:00 Discharge - Discharge Clinical Impression: Migraine headache Qualifiers: Migraine type: unspecified Status migrainosus presence: without status migrainosus Intractability: not intractable Qualified Code(s): G43.909 - Migraine, unspecified, not intractable, without status migrainosus Condition: Stable Disposition: HOME, SELF-CARE Instructions: Migraine Headache ([facility]) Additional Instructions: Please follow-up with your neurologist as scheduled and discussed. Please return here or any ER immediately with any new, persistent or worsening symptoms. Referrals: AROLDO LYNNE MD [Primary Care Provider] - Follow up as needed
[2020-01-02] MEDS ORDERED: SUMATRIPTAN SUCCINATE INJ/PF 6 MG/0.5 ML SDV SUBCUT ONE (23:11)
[2020-01-03 00:51] VITALS: BP 115/69
== END 2020-01-03 00:51 | disposition home or self-care (01) ==
LOC: ER 20:55
DX: G43.909 Migraine, unspecified, not intractable, without status migrainosus (principal); R11.2 Nausea with vomiting, unspecified; Z98.51 Tubal ligation status
CPT/HCPCS: 99284; 96372; 96361; 96374; 96375; J1200; J1885; J2765; J3030; J7030

== ENCOUNTER 2020-02-21 08:22 | Emergency (ER) | payer MEDICAID ==
[2020-02-21 08:48] VITALS: BP 117/64
[2020-02-21] MEDS ORDERED: CEPHALEXIN 500 MG CAPSULE PO ONE (09:37)
[2020-02-21] MEDS ORDERED: SULFAMETHOXAZOLE/TRIMETHOPRIM 800-160 MG TABLET PO ONE (09:37)
[2020-02-21] MEDS ORDERED: HYDROCODONE/ACETAMINOPHEN 5-325 MG TABLET PO ONE (09:37)
--- NOTE | 2020-02-21 09:40 | ER Document Report ---
HPI - HPI Patient complains to provider of: Thumb pain Time Seen by Provider: 02/21/20 08:56 Onset: Yesterday Onset/Duration: Gradual Quality of pain: Sharp Pain Level: 4 Context: Patient states that she bites her nails and pulls at her hangnails and cuticles. Patient complains of the left thumb tenderness and swelling since yesterday. Patient denies any fever. Patient denies any trauma to the finger. Associated Symptoms: Other - Left thumb pain. denies: Fever Exacerbated by: Movement Relieved by: Denies Similar symptoms previously: No Recently seen / treated by doctor: No - ROS ROS below otherwise negative: Yes Systems Reviewed and Negative: Yes All other systems reviewed and negative - CONSTITUTIONAL Constitutional: DENIES: Fever, Chills - GASTROINTESTINAL Gastrointestinal: DENIES: Nausea - REPRODUCTIVE LMP: 02/06/20 Reproductive: DENIES: : - MUSCULOSKELETAL Musculoskeletal: REPORTS: Extremity pain, Swelling - DERM Skin Color: Erythema Skin Problems: None Past Medical History - General Information source: Patient - Social History Smoking Status: Never Smoker Chew tobacco use (# tins/day): No Frequency of alcohol use: Rare Drug Abuse: None Family History: Reviewed & Not Pertinent, CVA, DM, Hypertension, Malignancy Patient has homicidal ideation: No - Past Medical History Cardiac Medical History: Pulmonary Medical History: Neurological Medical History: Reports: Hx Migraine, Hx Seizures Musculoskeletal Medical History: Reports Hx Musculoskeletal Deformity Psychiatric Medical History: Reports: Hx Anxiety, Hx Depression - anxiety Past Surgical History: Reports: Hx Section - x 2, Hx Tubal Ligation - Immunizations Immunizations up to date: Yes Hx Diphtheria, Pertussis, Tetanus Vaccination: No Vertical Provider Document - CONSTITUTIONAL Agree With Documented VS: Yes Exam Limitations: No Limitations General Appearance: WD/WN, No Apparent Distress - INFECTION CONTROL TRAVEL OUTSIDE OF THE [place] IN LAST 30 DAYS: No - HEENT HEENT: Atraumatic, Normocephalic - NECK Neck: Normal Inspection - RESPIRATORY Respiratory: Breath Sounds Normal, No Respiratory Distress - CARDIOVASCULAR Cardiovascular: Regular Rate, Regular Rhythm Pulses: Normal: Radial - MUSCULOSKELETAL/EXTREMETIES Musculoskeletal/Extremeties: MAEW, FROM, Tender - This along medial nail margin at the left thumb with surrounding erythema, no fluctuance, no drainable purulent collection, Edema - NEURO Level of Consciousness: Awake, Alert, Appropriate Motor/Sensory: No Motor Deficit - DERM Integumentary: Warm, Dry Course - Re-evaluation Re-evalutation: 02/21/20 09:40 Patient with what appears to be paronychia involving the left thumb. Patient does admit to biting her nails and pulling at her cuticles and hangnails. Patient encouraged to avoid these habits as a can lead to nail infection. No palmar tenderness, no concern for felon at this time. Good return precautions discussed with patient. Patient verbalized understanding is agreeable with discharge plan of care. - Vital Signs Vital signs: Temp Pulse Resp BP Pulse Ox 98.0 F 72 16 117/64 99 02/21/20 08:51 02/21/20 08:47 02/21/20 08:47 02/21/20 08:47 02/21/20 08:47 Discharge - Discharge Clinical Impression: Paronychia of left thumb Condition: Stable Disposition: HOME, SELF-CARE Instructions: Cephalosporins ([facility]), Epsom Salt Soaks ([facility]), Oral Narcotic Medication ([facility]), Paronychia ([facility]), Trimethoprim-Sulfa ([facility]) Additional Instructions: Return immediately for any new or worsening symptoms: Increased pain, fever, purulent collection or any concerning symptoms Followup with your primary care provider, call tomorrow to make a followup appointment Prescriptions: Sulfamethoxazole/Trimethoprim [Bactrim Ds Tablet] 1 each PO BID #20 tablet Cephalexin Monohydrate [Keflex 500 mg Capsule] 500 mg PO Q6H 7 Days #28 capsule Hydrocodone/Acetaminophen [[place] 5-325 mg Tablet] 1 tab PO Q6 PRN #6 tablet PRN Reason: Referrals: THERESA BROWN MD [Primary Care Provider] - Follow up as needed
== END 2020-02-21 09:49 | disposition home or self-care (01) ==
LOC: ER 08:22
DX: L03.012 Cellulitis of left finger (principal); M79.645 Pain in left finger(s)
CPT/HCPCS: 99283; J3490